=== PATIENT | male | born 1960 | race Caucasian/White ===

== ENCOUNTER 2017-07-27 18:35 | Emergency (ER) | payer MEDICAID ==
[~2017-07-27] VITALS: Ht 162.6 cm; Wt 74.8 kg
--- NOTE | 2017-07-27 18:40 | NUR ---
[id number] FROM THE [facility]IAL[facility]IS [facility] FOR HIGH BP AFTER DIALYSIS 219/106. PT DENIES ANY COMPLAINTS. NAD NOTED. PT AAO X4, RR EVEN AND UNLABORED. TRACH NOTED IN PLACED. PENDING MD PATHAK. PT PLACED ON MONITOR.
[2017-07-27] MEDS ORDERED: hydrALAZINE HCL IV 20 MG VIAL IV ONE (19:00)
[2017-07-27] MEDS ORDERED: hydrALAZINE HCL IV 20 MG VIAL ONE (19:01)
--- NOTE | 2017-07-27 19:12 | NUR ---
MEDICATIONS GIVEN ORDERED.
[2017-07-27 19:15] LABS: BASOPHILS % (AUTO) 0.9 % (0.0-2.0); EOSINOPHILS % (AUTO) 5.6 % (0.0-6.0); HEMATOCRIT 34 % (39-51); HEMOGLOBIN 11.5 g/dL (13.5-17.5); LYMPHOCYTES # (AUTO) 1.3 /CMM (0.8-4.8); LYMPHOCYTES % (AUTO) 33.2 % (20.0-44.0); MEAN CORPUSCULAR HGB CONC 34 g/dl (31.0-36.0); MEAN CORPUSCULAR VOLUME 85 fL (80-96); MONOCYTES # (AUTO) 0.6 /CMM (0.1-1.30); NEUTROPHILS % (AUTO) 44.3 % (43.0-81.0); RDW COEFFICIENT OF VARIATION 16.7 (11.5-15.0); RED BLOOD CELL COUNT(AUTO) 3.99 MIL/uL (4.5-6.0); WHITE BLOOD COUNT (AUTO) 4.1 K/uL (4.3-11.0)
[2017-07-27 19:25] LABS: PLATELET COUNT (AUTO) 37 /CMM (150-450)
[2017-07-27 19:46] LABS: CALCIUM, SERUM 8.7 mg/dL (8.5-10.1); CREATININE 4.8 mg/dL (0.6-1.3); POTASSIUM 4.2 mmol/L (3.5-5.1)
[2017-07-27 21:15] LABS: EOSINOPHILS % (MANUAL) 9 % (0-4); LYMPHOCYTES % (MANUAL) 21 % (16-48); MONOCYTES % (MANUAL) 5 % (0-11.0); NEUTROPHILS % (MANUAL) 65 (42-76)
--- NOTE | 2017-07-27 21:21 | NUR ---
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 PATIENT IS ASYMPTOMATIC. MD BAUM AWARE OF BP. PATIENT'S NURSE BOOM VALIENTE AWARE OF BP.
[2017-07-27 21:24] VITALS: BP 160/118
--- NOTE | 2017-07-27 21:24 | NUR ---
PATIENT WAS PICKED UP BY GHISLAINE. VSS
== END 2017-07-27 21:28 | disposition home or self-care (01) ==
LOC: ER 18:38
DX: D61.818 Other pancytopenia (principal); I12.0 Hypertensive chronic kidney disease with stage 5 chronic kidney disease or end stage renal disease; N18.6 End stage renal disease; J44.9 Chronic obstructive pulmonary disease, unspecified; D64.9 Anemia, unspecified; Z85.118 Personal history of other malignant neoplasm of bronchus and lung; Z86.73 Personal history of transient ischemic attack (TIA), and cerebral infarction without residual deficits; Z93.0 Tracheostomy status; Z99.2 Dependence on renal dialysis
CPT/HCPCS: 36415; 80048; 85025; 96374; 99284; A4606; J0360; Z7610

== ENCOUNTER 2019-08-16 12:55 | Emergency (ER) | payer MEDICAID ==
[~2019-08-16] VITALS: Ht 172.7 cm; Wt 84.8 kg
[~2019-08-16 12:55] MED LIST: ACET-868 PO; AMIN30LI2 PO; ATOR10TA PO; CALC667C6 PO; CLON0.1T PO; FERR325T23 PO; FOLI0.8T23 PO; FURO-145 PO; HYDR-4075 PO; HYDR100T27 PO; LOPE2CAP PO; OXYB5TAB16 PO; PANT40TA2 PO; TAMS-12 PO; TEMA15CA PO; TRAM50TA2 PO
--- NOTE | 2019-08-16 13:25 | NUR ---
,, CONTACT INFO:[phone]
--- NOTE | 2019-08-16 13:48 | NUR ---
HIRAL FROM HD ACCROSS THE STREET. TO ER BED 7. AAOX4. NO RESP DISTRESS, BREATHING EVEN AND UNLABORED - PT HAVE TRACHESTOMY NOT VENT DEPENDENT. BROUGHT IN FOR REPORTED FEVER OF 101.6 AT THE [facility]. UPON TIAGE, PT'S TEMP WAS 98.3 AND 98.4 DURING ASSESSMENT. PT DENIES OF ANY MEDICAL COMPLAINT. MD WAS AT BEDSIDE. ORDERS RECEIVED, NOTED AND CARRIED OUT. IV LINE OBTIANED ON RFA 18G, BLOOD DRAWN, SWABBED FOR COVID AND FLU AND GIVEN TO DIRECTOR OF SPORTS PERFORMANCE. URINE TO FOLLOW, PT IS UNABLE TO URINTED AT THIS TIME, MD AWARE. VSS. WILL CONTINUE TO MONITOR PT.
[2019-08-16 14:16] LABS: BASOPHILS # (AUTO) 0.1 /CMM (0.0-0.2); BASOPHILS % (AUTO) 1.7 % (0.0-2.0); EOSINOPHILS % (AUTO) 4.4 % (0.0-6.0); HEMATOCRIT 34 % (39-51); HEMOGLOBIN 11.7 g/dL (13.5-17.5); LYMPHOCYTES # (AUTO) 1.3 /CMM (0.8-4.8); LYMPHOCYTES % (AUTO) 35.2 % (20.0-44.0); MEAN CORPUSCULAR HGB CONC 34 g/dl (31.0-36.0); MEAN CORPUSCULAR VOLUME 93 fL (80-96); MONOCYTES # (AUTO) 0.5 /CMM (0.1-1.30); MONOCYTES % (AUTO) 13.4 % (2.0-12.0); NEUTROPHILS # (AUTO) 1.7 /CMM (1.8-8.9); NEUTROPHILS % (AUTO) 45.3 % (43.0-81.0); PLATELET COUNT (AUTO) 94 /CMM (150-450); RED BLOOD CELL COUNT(AUTO) 3.69 MIL/uL (4.5-6.0); WHITE BLOOD COUNT (AUTO) 3.8 K/uL (4.3-11.0)
[2019-08-16 14:23] LABS: POTASSIUM 4.1 mmol/L (3.5-5.1)
[2019-08-16 14:32] LABS: CALCIUM, SERUM 8.7 mg/dL (8.5-10.1)
[2019-08-16 14:33] LABS: CREATININE 9.9 mg/dL (0.6-1.3)
[2019-08-16 14:36] LABS: ALBUMIN 3.6 g/dL (3.4-5.0); BILIRUBIN,TOTAL 0.8 mg/dL (0.2-1.0); TOTAL PROTEIN, SERUM 7.3 g/dL (6.4-8.2)
--- NOTE | 2019-08-16 14:40 | NUR ---
MD DOES NOT NEED URINE.
[2019-08-16 14:46] LABS: C-REACTIVE PROTEIN 0.7 mg/dL (0.0-0.9)
[2019-08-16 14:54] VITALS: BP 122/72
--- NOTE | 2019-08-16 15:25 | NUR ---
IV removed. Catheter intact and site benign. Pressure and 4x4 applied to site. No bleeding noted. Patient discharged to home in stable condition. Written and verbal after care instructions given. Patient verbalizes understanding of instruction.
[2019-08-16 16:24] LABS: BAND % (MANUAL) 1 % (0.0-5.0); EOSINOPHILS % (MANUAL) 5 % (0-4); LYMPHOCYTES % (MANUAL) 40 % (16-48); MONOCYTES % (MANUAL) 12 % (0-11.0); NEUTROPHILS % (MANUAL) 42 (42-76)
== END 2019-08-16 15:26 | disposition home or self-care (01) ==
LOC: ER 12:58
DX: T80.89XA Other complications following infusion, transfusion and therapeutic injection, initial encounter (principal); R50.9 Fever, unspecified; Z93.0 Tracheostomy status; R79.89 Other specified abnormal findings of blood chemistry; I12.0 Hypertensive chronic kidney disease with stage 5 chronic kidney disease or end stage renal disease; N18.6 End stage renal disease; Z99.2 Dependence on renal dialysis; Z85.118 Personal history of other malignant neoplasm of bronchus and lung; J44.9 Chronic obstructive pulmonary disease, unspecified; Z79.899 Other long term (current) drug therapy
CPT/HCPCS: 36415; 71045-TC; 80053-TC; 82550-TC; 82728-TC; 83605-TC; 83615-TC; 84484-TC; 85025-TC; 85730-TC; 86140-TC; 87040-TC

== ENCOUNTER 2020-07-12 12:13 | Inpatient (IN) | payer MEDICAID ==
[~2020-07-12] VITALS: Ht 165.1 cm; Wt 84.8 kg
--- NOTE | 2020-07-12 12:44 | NUR ---
elli from [facility]. aaox1. not in resp distress, trach dependent on ra and tolerating well. transferred from [facility] to bed w/ min assist. brought in for altered mental status. Per ambulance staff pt missed her dialysis d/t being altered. pt was reported to unable to ask the basic questions that he was used to be asked. upon assessing, pt appears withdrawn. noted hd cath on r u chest. hd on m,w,f. pt noted hypertensive. md was at the bedside for eval. orders received, noted and carried out. iv line established on r hand 2og, blood drawn and given to phleb.
[2020-07-12 12:51] LABS: BASOPHILS % (AUTO) 0.7 % (0.0-2.0); EOSINOPHILS % (AUTO) 4.1 % (0.0-6.0); HEMATOCRIT 42 % (39-51); LYMPHOCYTES % (AUTO) 21.6 % (20.0-44.0); MEAN CORPUSCULAR HGB CONC 33 g/dl (31.0-36.0); MEAN CORPUSCULAR VOLUME 91 fL (80-96); MONOCYTES # (AUTO) 0.4 /CMM (0.1-1.30); MONOCYTES % (AUTO) 8.4 % (2.0-12.0); NEUTROPHILS # (AUTO) 3.2 /CMM (1.8-8.9); NEUTROPHILS % (AUTO) 65.2 % (43.0-81.0); PLATELET COUNT (AUTO) 92 /CMM (150-450); RED BLOOD CELL COUNT(AUTO) 4.65 MIL/uL (4.5-6.0); WHITE BLOOD COUNT (AUTO) 4.8 K/uL (4.3-11.0)
[2020-07-12 13:21] LABS: CALCIUM, SERUM 8.9 mg/dL (8.5-10.1); POTASSIUM 4.3 mmol/L (3.5-5.1)
[2020-07-12 13:29] LABS: THYROID STIMULATING HORMONE 2.479 uIU/mL (0.358-3.74)
[2020-07-12] MEDS ORDERED: LACTULOSE 10 G/15 ML UDC (PYXIS) GT ONE (13:30)
[2020-07-12 13:31] LABS: ALBUMIN 3.6 g/dL (3.4-5.0); BILIRUBIN,DIRECT 0.2 mg/dL (0.0-0.2); BILIRUBIN,TOTAL 0.6 mg/dL (0.2-1.0); TOTAL PROTEIN, SERUM 8.3 g/dL (6.4-8.2)
[2020-07-12 13:35] LABS: CREATININE 9.4 mg/dL (0.6-1.3)
--- NOTE | 2020-07-12 13:38 | NUR ---
PANEL PAGED. AWAITING CALL BACK FROM DR HERNANDEZ.
[2020-07-12 13:49] LABS: EOSINOPHILS % (MANUAL) 4 % (0-4); LYMPHOCYTES % (MANUAL) 22 % (16-48); MONOCYTES % (MANUAL) 6 % (0-11.0); NEUTROPHILS % (MANUAL) 68 (42-76)
[2020-07-12] MEDS ORDERED: LEVE500T20 PO (13:49)
[2020-07-12] MEDS ORDERED: LISI40TA13 PO (13:49)
[2020-07-12] MEDS ORDERED: GABA-536 PO (13:49)
[2020-07-12] MEDS ORDERED: FOLI0.8C PO (13:49)
[2020-07-12] MEDS ORDERED: CARV6.252 PO (13:49)
[2020-07-12] MEDS ORDERED: IPRA3AMP23 IH (13:49)
[2020-07-12] MEDS ORDERED: AMLO-213 PO (13:49)
--- NOTE | 2020-07-12 14:04 | NUR ---
CALLED [facility].
--- NOTE | 2020-07-12 14:47 | NUR ---
SHARON BRADY GAVE TELE BED 120-2.
[2020-07-12] MEDS ORDERED: LACTULOSE 10 G/15 ML UDC (PYXIS) ONE (15:09)
[2020-07-12] MEDS ORDERED: Z GUARD REMEDY 2 OZ OINT TP PRN (15:30)
[2020-07-12] MEDS ORDERED: MAGNESIUM HYDROXIDE 30 ML UDC PO PRN (15:30)
[2020-07-12] MEDS ORDERED: ACETAMINOPHEN 325 MG TABLET PO PRN (15:30)
[2020-07-12] MEDS ORDERED: HYDROCODONE/APAP 5/325MG TABLET PO PRN (15:30)
[2020-07-12] MEDS ORDERED: ONDANSETRON HCL/PF 4 MG/2 ML VIAL IVP PRN (15:30)
[2020-07-12] MEDS ORDERED: MAG HYDROX/AL HYDROX/SIMETH 30 ML UDC PO PRN (15:30)
--- NOTE | 2020-07-12 16:23 | NUR ---
REPORT GIVEN TO RADHA EUGENE. PT AWAITING TRANSFER TO FLOOR.
[2020-07-12] MEDS: OXYBUTYNIN CHLORIDE 5 MG TABLET PO SCH (17:00)
[2020-07-12] MEDS: CARVEDILOL 6.25 MG TABLET PO SCH (17:00)
[2020-07-12] MEDS: GABAPENTIN 400 MG CAPSULE PO SCH (17:00)
--- NOTE | 2020-07-12 17:00 | NUR ---
PT TRANSPORTED TO UNIT ON GURNEY WITH EMT AND RN AT BEDSIDE W/ ACLS PROTOCOL. NAD NOTED DURING TRANSPORT.
--- NOTE | 2020-07-12 17:30 | NUR ---
RN NOTES RECEIVED PT FROM ER. PT CONFUSED. SAFETY MEASURES IN PLACE. PT WILL START DIALYSIS. WILL CONTINUE TO MONITOR
[2020-07-12] MEDS: CALCIUM ACETATE 667 MG TABLET PO SCH (18:00)
[2020-07-12] MEDS: LACTULOSE 10 G/15 ML UDC (PYXIS) PO SCH (18:00)
--- NOTE | 2020-07-12 19:00 | NUR ---
RN NOTE RECEIVED PATIENT IN BED, ONGOING DIALYSIS STOPPED FOR NOW PATIENT IS AGITATED, AND TRIED PULLING OUT LINES, PATIENT ABLE TO REMOVE B SOFT WRIST RESTRAINTS, R WRIST PERIPHERAL LINE PULLED OUT, HD RN AT BEDSIDE. PATIENT IS CYMRAES SPEAKING, SHANIKA LOMELI ABLE TO HELP WITH TRANSLATION AND WAS ABLE TO HELP CALM PATIENT. NO SOB NOTED. PATIENT'S BREATHING IS EVEN AND UNLABORED. PATIENT ON T-PIECE TO ROOM AIR, SATURATION AT 97%. PATIENT REFUSED TELE MONITOR/ELECTRODES. NOTED HD CATH AT RIGHT CHEST WALL, NO SIGN OF INFECTION NOTED. PATIENT IS CONTINENT, WITH URINAL AT BEDSIDE, NOTED CLEAR YELLOW OUTPUT, MINIMAL AMOUNT NOTED. SAFETY MEASURES IMPLEMENTED. PATIENT BED ALARM IS ON. HEAD OF BED ELEVATED. BED IS LOCKED, IN LOWEST POSITION AND SIDE RAILS UP. CALL LIGHT WITHIN REACH OF THE PATIENT. WILL CONTINUE TO MONITOR AND REASSESS FOR ANY CHANGES.
--- NOTE | 2020-07-12 19:15 | NUR ---
RN NOTE DR HERNANDEZ IN UNIT, NOTED MISC ORDER: IF NOT TOLERATED PO PLEASE INSERT NG TUBE AND GIVE MEDICATION. DR HERNANDEZ ALSO NOTED PER PATIENT'S , NOT TO USE PMV/SPEAKING VALVE THIS WILL SUFFOCATE PATIENT, AND THAT PATIENT GETS VIOLENT WHEN ON RESTRAINTS.
--- NOTE | 2020-07-12 19:34 | NUR ---
RN NOTES STILL ON HD. VS STABLE. CONFUSED. WILL ENDORSE TO NIGHT NURSE FOR ERICA
[2020-07-12 20:00] VITALS: BP 157/87
--- NOTE | 2020-07-12 21:00 | NUR ---
RN NOTE TELEPHONE CALL TO PATIENT'S , JULY, VERIFIED PATIENT'S CODE STATUS, AND OBTAINED CONSENT FOR HD. JULY STATED PATIENT IS FULL CODE, AND CONSENT FOR HD WAS DISCUSSED EARLIER WITH , PROVIDED HER VERBAL CONSENT. CONVERSATION WITNESSED BY CAROLINE VERNON RN.
--- NOTE | 2020-07-12 21:09 | NUR ---
RT NOTE CALLED TO ASSESS PT FOR TRACHEAL BLEEDING, CHANGED INNER CANNULA D/T OLD I.C HAD DRY OLD BLOOD. BACK UP TRACH AND EXTRA INNER CANNULA AT BEDSIDE. WILL CONTINUE TO MONITOR T/O SHIFT. NO S/S OF SOBOR RESPIRATORY DISTRESS NOTED.
--- NOTE | 2020-07-12 21:30 | NUR ---
CREATIVE WRITING PROFESSOR RN REINSERTED IV LINE AT PATIENT'S R WRIST 22G. ASEPTIC TECHNIQUE WAS OBSERVED. ATTEMPTED TO INSERT NGTUBE 14G, PATIENT REFUSED. DR DAVID WAS NOTIFIED. ACKNOWLEDGED WITH NO NEW ORDERS RECEIVED.
[2020-07-12] MEDS: FERROUS SULFATE (325 MG) 325 MG/TAB TABLET PO SCH (22:54)
[2020-07-12] MEDS: ATORVASTATIN 10 MG TABLET PO SCH (22:55)
[2020-07-12] MEDS: TAMSULOSIN 0.4 MG CAP.SR.24H PO SCH (22:55)
[2020-07-12] MEDS: LEVETIRACETAM (250 MG) 250 MG TABLET PO SCH (22:55)
[2020-07-13] VITALS: BP 169/97
[2020-07-13] MEDS: LACTULOSE 10 G/15 ML UDC (PYXIS) PO SCH ×4 (00:01→17:05)
--- NOTE | 2020-07-13 00:30 | NUR ---
RN NOTE NOTED BP 169/103 AT REST, AT 0000. REPOSITIONED PATIENT, KEPT COMFORTABLE. RECHECKED BP AT 0030, RESULTED 175/104. DR DAVID WAS NOTIFIED, RECEIVED ORDERS FOR HYDRALAZINE 10 MG IVP Q8H PRN FOR SBP >160. RHYTHMIC GYMNASTICS COACH AWARE.
[2020-07-13] MEDS: hydrALAZINE HCL IV 20 MG VIAL IV PRN (01:40)
[2020-07-13 04:00] VITALS: BP 128/75
[2020-07-13] MEDS: PANTOPRAZOLE 40 MG TABLET.DR PO SCH (06:58)
[2020-07-13 07:08] LABS: BASOPHILS # (AUTO) 0.1 /CMM (0.0-0.2); BASOPHILS % (AUTO) 1.9 % (0.0-2.0); EOSINOPHILS % (AUTO) 4.9 % (0.0-6.0); HEMATOCRIT 41 % (39-51); HEMOGLOBIN 13.5 g/dL (13.5-17.5); LYMPHOCYTES # (AUTO) 1.3 /CMM (0.8-4.8); MEAN CORPUSCULAR HGB CONC 33 g/dl (31.0-36.0); MEAN CORPUSCULAR VOLUME 91 fL (80-96); MONOCYTES # (AUTO) 0.6 /CMM (0.1-1.30); MONOCYTES % (AUTO) 13.1 % (2.0-12.0); NEUTROPHILS # (AUTO) 2.2 /CMM (1.8-8.9); NEUTROPHILS % (AUTO) 50.1 % (43.0-81.0); PLATELET COUNT (AUTO) 105 /CMM (150-450); RED BLOOD CELL COUNT(AUTO) 4.51 MIL/uL (4.5-6.0); WHITE BLOOD COUNT (AUTO) 4.5 K/uL (4.3-11.0)
[2020-07-13] MEDS ORDERED: PANTOPRAZOLE 40 MG TABLET.DR PO SCH (07:30)
[2020-07-13 07:38] LABS: CALCIUM, SERUM 9.4 mg/dL (8.5-10.1); MAGNESIUM 2.4 mg/dL (1.8-2.4); POTASSIUM 3.9 mmol/L (3.5-5.1)
[2020-07-13 07:46] LABS: CREATININE 8.9 mg/dL (0.6-1.3)
--- NOTE | 2020-07-13 07:48 | NUR ---
RT Pt awake and alert on room air with adequate SpO2. Pt refused suctioning at this time. No SOB or respiratory distress noted. Addendum: 07/13/20 at 0843 by BILLY MEJIA RT Amended: Links added.
[2020-07-13 07:56] LABS: THYROID STIMULATING HORMONE 4.365 uIU/mL (0.358-3.74)
[2020-07-13 08:00] VITALS: BP 155/93
[2020-07-13] MEDS: LEVETIRACETAM (250 MG) 250 MG TABLET PO SCH ×2 (08:20→21:37)
[2020-07-13] MEDS: CALCIUM ACETATE 667 MG TABLET PO SCH ×3 (08:20→17:05)
[2020-07-13] MEDS: FERROUS SULFATE (325 MG) 325 MG/TAB TABLET PO SCH ×2 (08:20→21:37)
[2020-07-13] MEDS: FOLIC ACID 1 MG TABLET PO SCH (08:20)
[2020-07-13] MEDS: AMLODIPINE BESYLATE 10 MG TABLET PO SCH (08:21)
[2020-07-13] MEDS: CARVEDILOL 6.25 MG TABLET PO SCH ×2 (08:21→17:05)
[2020-07-13] MEDS: OXYBUTYNIN CHLORIDE 5 MG TABLET PO SCH ×3 (08:21→17:05)
[2020-07-13] MEDS: LISINOPRIL (10MG) 10 MG TABLET PO SCH (08:22)
[2020-07-13] MEDS: GABAPENTIN 400 MG CAPSULE PO SCH ×3 (08:22→17:05)
--- NOTE | 2020-07-13 09:30 | NUR ---
MD FAJARDO MADE AWARE OF CRITICAL BUN/CR 59/8.4, AND PATIENTS IMPROVING AMMONIA 58 FROM 233. MD NOTIFIED OF PATIENT ALERT AND ORIENTED X 4, PASSING BEDSIDE SWALLOW EVAL. ORDERS RECEIVED TO RESUME PREVIOUS DIET
--- NOTE | 2020-07-13 11:49 | NUR ---
PATIENT RECEIVED IN BED ALERT AND ORIENTED X4. PATIENT BREATHING PATIENT IS ABLE TO AMBULATE INDEPENDENTLY. PATIENT ON MONITOR SHOWING SR 60-70s. PATIENT HAS RHAND 22G IV INTACT, AND RIGHT CHEST WALL HD CATH. PT HAS SIERRA AV SHUNT UNUSED AND MALFUNCTIONED. ALL SAFETY MEASURES IN PLACE. WILL CONTINUE TO MONITOR Addendum: 07/13/20 at 1912 by RAMY GRIFFIN RN NOTE TO BE ENTERED FOR 0800, NOT 1149
[2020-07-13 12:00] VITALS: BP 132/84
[2020-07-13] MEDS ORDERED: FOLIC ACID 1 MG TABLET PO SCH (15:00)
[2020-07-13 16:00] VITALS: BP 128/79
--- NOTE | 2020-07-13 19:12 | NUR ---
PATIENT REMAINS AMBULATORY WITHIN ROOM, NO ACUTE CHANGE IN SHIFT. PATIENT IS STRICT I/O, BUT REFUSES TO USE URINALS. PATIENT IS INDEPENDENT TO THE BATHROOM, WITH 4 WATERY BM THIS SHIFT; PATIENT ON LACTULOSE. ALL SAFETY MEASURES IN PLACE. ALL NEEDS ENDORSED TO ONCOMING RN.
[2020-07-13 20:00] VITALS: BP 133/80
[2020-07-13] MEDS: ATORVASTATIN 10 MG TABLET PO SCH (21:36)
[2020-07-13] MEDS: TAMSULOSIN 0.4 MG CAP.SR.24H PO SCH (21:37)
[2020-07-14] VITALS: BP 167/94
[2020-07-14] MEDS: LACTULOSE 10 G/15 ML UDC (PYXIS) PO SCH ×5 (00:25→23:47)
[2020-07-14 04:00] VITALS: BP 164/79
[2020-07-14] MEDS: hydrALAZINE HCL IV 20 MG VIAL IV PRN (04:18)
[2020-07-14 06:45] LABS: BASOPHILS # (AUTO) 0.1 /CMM (0.0-0.2); BASOPHILS % (AUTO) 1.6 % (0.0-2.0); EOSINOPHILS % (AUTO) 5.2 % (0.0-6.0); HEMATOCRIT 39 % (39-51); LYMPHOCYTES # (AUTO) 0.9 /CMM (0.8-4.8); MEAN CORPUSCULAR HGB CONC 33 g/dl (31.0-36.0); MEAN CORPUSCULAR VOLUME 92 fL (80-96); MONOCYTES # (AUTO) 0.7 /CMM (0.1-1.30); MONOCYTES % (AUTO) 12.8 % (2.0-12.0); NEUTROPHILS # (AUTO) 3.5 /CMM (1.8-8.9); NEUTROPHILS % (AUTO) 63.4 % (43.0-81.0); PLATELET COUNT (AUTO) 95 /CMM (150-450); RED BLOOD CELL COUNT(AUTO) 4.25 MIL/uL (4.5-6.0); WHITE BLOOD COUNT (AUTO) 5.5 K/uL (4.3-11.0)
[2020-07-14 07:12] LABS: CALCIUM, SERUM 8.8 mg/dL (8.5-10.1); POTASSIUM 4.7 mmol/L (3.5-5.1)
[2020-07-14 07:16] LABS: CREATININE 10.8 mg/dL (0.6-1.3)
--- NOTE | 2020-07-14 07:30 | NUR ---
RN OPENING NOTE PATIENT RECEIVED IN BED ALERT AND ORIENTED X4. TRACHEOSTOMY STATUS ON ROOM AIR, TOELRATING WELL. NO COMPLAINTS OF SOB OR DISTRESS NOTED. BREATHING PATIENT IS ABLE TO AMBULATE INDEPENDENTLY. PATIENT HAS R HAND 22G IV INTACT, AND RIGHT CHEST WALL HD CATH. PT HAS SIERRA AV SHUNT UNUSED AND MALFUNCTIONED. SAFETY PRECAUTIONS IMPLEMENTED, SIDE RAILS UP X2, BED LOCKED IN LOWEST POSITION, CALL LIGHT WITHIN REACH. ALL WILL CONTINUE TO MONITOR AND PROIVDE CLIENT CARE THROUGHOUT SHIFT.
[2020-07-14 08:00] VITALS: BP 166/98
[2020-07-14] MEDS: CARVEDILOL 6.25 MG TABLET PO SCH ×3 (09:00→16:57)
[2020-07-14] MEDS ORDERED: IOHEXOL-350 100 ML VIAL IV ONE (09:45)
[2020-07-14] MEDS ORDERED: IV NS 0.9% 250 ML IV ONE (09:46)
[2020-07-14] MEDS ORDERED: CT SWABBABLE VALVE TRANS SET 1 EA INFUS.SET MC ONE (09:46)
[2020-07-14] MEDS: PANTOPRAZOLE 40 MG TABLET.DR PO SCH (10:31)
[2020-07-14] MEDS: CALCIUM ACETATE 667 MG TABLET PO SCH ×3 (10:33→17:02)
[2020-07-14] MEDS: OXYBUTYNIN CHLORIDE 5 MG TABLET PO SCH ×3 (10:34→16:57)
[2020-07-14] MEDS: GABAPENTIN 400 MG CAPSULE PO SCH ×3 (10:35→16:57)
[2020-07-14] MEDS: FOLIC ACID 1 MG TABLET PO SCH (10:35)
[2020-07-14] MEDS: LEVETIRACETAM (250 MG) 250 MG TABLET PO SCH ×2 (10:35→20:56)
[2020-07-14] MEDS: FERROUS SULFATE (325 MG) 325 MG/TAB TABLET PO SCH ×2 (10:35→20:56)
[2020-07-14] MEDS: LISINOPRIL (10MG) 10 MG TABLET PO SCH (10:36)
[2020-07-14] MEDS: AMLODIPINE BESYLATE 10 MG TABLET PO SCH (10:36)
[2020-07-14 12:00] VITALS: BP_SYST 153; BP_SYST 155; BP_DIAS 94
[2020-07-14 16:00] VITALS: BP 114/66
--- NOTE | 2020-07-14 18:28 | NUR ---
Pt. was not compliant, Inner cannula change, Cool aerosol was on the bed side due to bleeding on the trach site also continous pulse ox was on the bedside. Pt. was alert and oriented x 4. German speaker SpO2 was 98%
--- NOTE | 2020-07-14 19:38 | NUR ---
RN CLOSING NOTE PATIENT IN BED ALERT AND ORIENTED X4. TRACHEOSTOMY STATUS ON ROOM AIR, TOLERATING WELL. NO COMPLAINTS OF SOB OR DISTRESS NOTED. BREATHING PATIENT IS ABLE TO AMBULATE INDEPENDENTLY. PATIENT HAS R HAND 22G IV INTACT, AND RIGHT CHEST WALL HD CATH. PT HAS SIERRA AV SHUNT UNUSED AND MALFUNCTIONED. SAFETY PRECAUTIONS IMPLEMENTED, SIDE RAILS UP X2, BED LOCKED IN LOWEST POSITION, CALL LIGHT WITHIN REACH. WILL ENDORSE CARE TO UPCOMING SHIFT.
[2020-07-14 20:00] VITALS: BP 119/66
--- NOTE | 2020-07-14 20:20 | NUR ---
RT pt found on RA, adequate spo2. no resp distress or sob. pt refusing suction. spare trach at bedside. ambu bag at [facility]. will continue to monitor
--- NOTE | 2020-07-14 20:20 | NUR ---
RN NOTES, HD DONE AT THIS TIME, PATIENT A/O X4 ABLE TO VERBALIZE NEEDS AND CONCERNS, HD NURSES STATED HE GAVE A BOLUS NS DUE TO BP 80S EARLIER, BP AT THIS TIME 116/66, 1L FLUID REMOVED, NO DISTRESS NOTED, PATIENT EATING AT THIS TIME, WILL CONTINUE TO MONITOR CLOSELY.
[2020-07-14] MEDS: ATORVASTATIN 10 MG TABLET PO SCH (21:00)
[2020-07-14] MEDS: TAMSULOSIN 0.4 MG CAP.SR.24H PO SCH (21:00)
--- NOTE | 2020-07-14 23:51 | NUR ---
RT pt placed on aerosol. spo2 100%. huseyin vaughn, aware
[2020-07-15 04:00] VITALS: BP 138/78
[2020-07-15] MEDS: LACTULOSE 10 G/15 ML UDC (PYXIS) PO SCH ×3 (05:15→17:58)
--- NOTE | 2020-07-15 06:41 | NUR ---
RN CLOSING NOTE, PATIENT IN BED ALERT AND ORIENTED X4, ASLEEP AT THIS TIME, AROUSES TO VERBAL STIMULI, TRACHEOSTOMY IN PLACED, WITH COOL AEROSOL DURING THE NIGHT, TOLERATED WELL, NO SOB/ ACUTE DISTRESS NOTED, RIGHT HAND 22G IV INTACT, AND RIGHT CHEST WALL HD CATH, SIERRA AV SHUNT MALFUNCTIONED, HD LAST NIGHT WITH 1L OF FLUID REMOVED, SAFETY PRECAUTIONS IMPLEMENTED, SIDE RAILS UP X2, BED LOCKED IN LOWEST POSITION, CALL LIGHT WITHIN REACH, WILL ENDORSE CONTINUITY OF CARE TO ONCOMING NURSE.
[2020-07-15 06:50] LABS: CALCIUM, SERUM 8.6 mg/dL (8.5-10.1); POTASSIUM 4.6 mmol/L (3.5-5.1)
[2020-07-15 07:01] LABS: CREATININE 9.8 mg/dL (0.6-1.3)
--- NOTE | 2020-07-15 07:30 | NUR ---
RN OPENING NOTES PATIENT PRESENT IN ROOM, A?OX4, ON ROOM AIR, SPO2 IS 100%, NO SOB, DENIES PAIN OR DISCOMFORT, AMBULATORY, iV LINE INTACT, FLUSHED, HD CATH INTACT, SAFETY MEASURES IN PLACE, WILL CONT TO MONITOR
[2020-07-15] MEDS: CALCIUM ACETATE 667 MG TABLET PO SCH ×3 (07:56→17:58)
[2020-07-15] MEDS: PANTOPRAZOLE 40 MG TABLET.DR PO SCH (07:56)
[2020-07-15 08:00] VITALS: BP 141/90
[2020-07-15 08:06] LABS: IMMUNOGLOBULIN A, SERUM 454 mg/dL (90-386); IMMUNOGLOBULIN G, SERUM 1555 mg/dL (603-1613); IMMUNOGLOBULIN M, SERUM 117 mg/dL (20-172)
[2020-07-15] MEDS: LISINOPRIL (10MG) 10 MG TABLET PO SCH (08:56)
[2020-07-15] MEDS: LEVETIRACETAM (250 MG) 250 MG TABLET PO SCH ×2 (08:56→21:03)
[2020-07-15] MEDS: FOLIC ACID 1 MG TABLET PO SCH (08:56)
[2020-07-15] MEDS: GABAPENTIN 400 MG CAPSULE PO SCH ×3 (08:57→18:00)
[2020-07-15] MEDS: FERROUS SULFATE (325 MG) 325 MG/TAB TABLET PO SCH ×2 (08:57→21:03)
[2020-07-15] MEDS: OXYBUTYNIN CHLORIDE 5 MG TABLET PO SCH ×3 (08:57→17:59)
[2020-07-15] MEDS: CARVEDILOL 6.25 MG TABLET PO SCH ×2 (08:58→17:59)
[2020-07-15] MEDS: AMLODIPINE BESYLATE 10 MG TABLET PO SCH (08:58)
--- NOTE | 2020-07-15 11:48 | NUR ---
MRI APPROVED,TO BE DONE TOMORROW AM BEFORE THE DIALYSIS,PER NURSE DREA, DEPUTY SHERIFF SAMMIE HAS BEING NOTIFIED.
[2020-07-15 12:00] VITALS: BP 141/90
[2020-07-15 16:00] VITALS: BP 110/74
--- NOTE | 2020-07-15 16:28 | NUR ---
SS Note: Per pt.'s request, SW met with pt. bedside. Pt. is alert & oriented. Patient requested that I speak with his girlfriend, July [phone]. SW called & spoke to July who requested Advanced Healthcare Directive paperwork. SW will follow up tomorrow and ask pt. if that is what he wants and provide education about paperwork and what it entails.SW will follow up as needed.
--- NOTE | 2020-07-15 19:10 | NUR ---
RN CLOSING NOTE REMAINS IN ROOM, SITTING IN CHAIR, COMFORTABLY, MEDS GIVEN, EDUCATION PROVIDED, NO ACUTE CHANGES DUE SHIFT WILL ENDORSE TO PM SHIFT FOR ERICA
[2020-07-15 20:00] VITALS: BP 126/80
--- NOTE | 2020-07-15 20:00 | NUR ---
RN CLOSING NOTE, PATIENT IN BED ALERT AND ORIENTED X4, AWAKE, TOLERATED WELL, NO SOB/ ACUTE DISTRESS NOTED, NO CHANGE LOC, NO S/S OF CONFUSION NOTED, SAFETY PRECAUTIONS IMPLEMENTED, SIDE RAILS UP X2, BED LOCKED IN LOWEST POSITION, CALL LIGHT WITHIN REACH, WILL CONTINUE TO MONITOR CLOSELY.
[2020-07-15] MEDS: TAMSULOSIN 0.4 MG CAP.SR.24H PO SCH (21:03)
[2020-07-15] MEDS: ATORVASTATIN 10 MG TABLET PO SCH (21:03)
[2020-07-16] MEDS: LACTULOSE 10 G/15 ML UDC (PYXIS) PO SCH ×5 (00:24→23:23)
[2020-07-16 02:06] LABS: AFP, TUMOR MARKER 21.7 ng/mL (0.0-8.3); CARBOHYDRATE AG 19-9 47 U/mL (0-35)
[2020-07-16 04:00] VITALS: BP 96/50
[2020-07-16 06:29] LABS: BASOPHILS # (AUTO) 0.1 /CMM (0.0-0.2); BASOPHILS % (AUTO) 1.5 % (0.0-2.0); EOSINOPHILS % (AUTO) 7.8 % (0.0-6.0); HEMATOCRIT 33 % (39-51); HEMOGLOBIN 11.1 g/dL (13.5-17.5); LYMPHOCYTES # (AUTO) 1.3 /CMM (0.8-4.8); MEAN CORPUSCULAR HGB CONC 34 g/dl (31.0-36.0); MEAN CORPUSCULAR VOLUME 91 fL (80-96); MONOCYTES # (AUTO) 0.6 /CMM (0.1-1.30); MONOCYTES % (AUTO) 16.2 % (2.0-12.0); NEUTROPHILS # (AUTO) 1.6 /CMM (1.8-8.9); NEUTROPHILS % (AUTO) 41.5 % (43.0-81.0); PLATELET COUNT (AUTO) 83 /CMM (150-450); RED BLOOD CELL COUNT(AUTO) 3.62 MIL/uL (4.5-6.0); WHITE BLOOD COUNT (AUTO) 3.9 K/uL (4.3-11.0)
[2020-07-16 06:48] LABS: CALCIUM, SERUM 8.4 mg/dL (8.5-10.1)
[2020-07-16 07:11] LABS: CREATININE 11.4 mg/dL (0.6-1.3)
--- NOTE | 2020-07-16 07:20 | NUR ---
RN CLOSING NOTE, PATIENT IN BED , AWAKE A/O X4, TRACH IN PLACED,NO O2 IN USE, TOLERATED WELL AT RA, BREATHING EVEN AND UNLABORED, NO SOB NOTED/ACUTE DISTRESS, NO SIGNIFICANT CHANGE IN CONDITION DURING THE NIGHT, WILL HAVE MRI SOON AND WILL HAVE HD AFTER THAT, NPO SINCE MIDNIGHT, WILL ENDORSE CONTINUITY OF CARE TO ONCOMING NURSE.
--- NOTE | 2020-07-16 08:00 | NUR ---
MS RN NOTE PATIENT IN BED ALERT AND ORIENTED X4, AWAKE, TOLERATED WELL, NO SOB/ ACUTE DISTRESS NOTED, SAFETY PRECAUTIONS IMPLEMENTED, SIDE RAILS UP X2, BED LOCKED IN LOWEST POSITION, CALL LIGHT WITHIN REACH, WILL CONTINUE TO MONITOR CLOSELY.NPO FOR NOW BUR PER EAP SPECIALIST OK TO GIVE MEDICATION, RT AC HL INATCT AND FLUSHED WELL TAKEN TO MRI
[2020-07-16 08:07] LABS: *SPE A/G RATIO 0.9 (0.7-1.7); *SPE ALBUMIN 3.4 g/dL (2.9-4.4); *SPE ALPHA-1-GLOBULIN 0.2 g/dL (0.0-0.4); *SPE ALPHA-2-GLOBULIN 0.8 g/dL (0.4-1.0); *SPE BETA GLOBULIN 1.1 g/dL (0.7-1.3); *SPE GLOBULIN, TOTAL 3.6 g/dL (2.2-3.9); *SPE M-SPIKE Not Observed g/dL (Not Observed); *SPEGAMMA GLOBULIN 1.5 g/dL (0.4-1.8)
--- NOTE | 2020-07-16 08:09 | NUR ---
RT NOTE PT RECEIVED ON ROOM AIR. SHILEY [address] AND SECURED. PT REFUSING COOL AEROSOL AT THIS TIME. NO DISTRESS NOTED. WILL MONITOR.
[2020-07-16] MEDS: OXYBUTYNIN CHLORIDE 5 MG TABLET PO SCH ×3 (08:37→16:37)
[2020-07-16] MEDS: GABAPENTIN 400 MG CAPSULE PO SCH ×3 (08:37→16:31)
[2020-07-16] MEDS: FERROUS SULFATE (325 MG) 325 MG/TAB TABLET PO SCH ×2 (08:37→20:50)
[2020-07-16] MEDS: LEVETIRACETAM (250 MG) 250 MG TABLET PO SCH ×2 (08:37→20:50)
[2020-07-16] MEDS: FOLIC ACID 1 MG TABLET PO SCH (08:37)
[2020-07-16] MEDS: CARVEDILOL 6.25 MG TABLET PO SCH ×2 (08:38→16:29)
[2020-07-16] MEDS: LISINOPRIL (10MG) 10 MG TABLET PO SCH (08:38)
[2020-07-16] MEDS: AMLODIPINE BESYLATE 10 MG TABLET PO SCH (08:39)
[2020-07-16] MEDS: PANTOPRAZOLE 40 MG TABLET.DR PO SCH (08:45)
[2020-07-16 10:02] LABS: EOSINOPHILS % (MANUAL) 7 % (0-4); LYMPHOCYTES % (MANUAL) 33 % (16-48); MONOCYTES % (MANUAL) 17 % (0-11.0); NEUTROPHILS % (MANUAL) 43 (42-76)
--- NOTE | 2020-07-16 10:05 | NUR ---
SS Note: Per girlfriend, , EMORY called [employer] [phone] spoke to Valery to assist this patient with applying for Medicare. Valery was agreeable and stated she will follow up. EMORY printed Ivorian & Pashto Advanced Healthcare Directive and provided it to pt. EMORY educated pt. regarding this paperwork. Pt. stated he has had 3 episodes of confusion recently and feels it is necessary to complete and advanced healthcare directive in the event that he cannot make decisions for self. Noted. EMORY July stated they already have a public notary and declined this resource. EMORY also provided pt. with the senior resources and pt. was receptive. SW will be available as needed. Pt. stated he resides at [facility]. [[address] [place] [address] ] and receives HD at [facility] [phone]. Noted.
--- NOTE | 2020-07-16 10:06 | NUR ---
MS RN NOTE BACK FROM MRI ,ORDERED FOOD WILL F\U
[2020-07-16] MEDS: CALCIUM ACETATE 667 MG TABLET PO SCH ×3 (10:19→17:40)
--- NOTE | 2020-07-16 10:29 | NUR ---
MS RN NOTE CALLED TO MELVIN MANAGER PROGRAMMING NOTIFIED THAT FIBRINOGEN 900 PLATELETS 20 , WITH ORDER IF PLATELETS LESS THEN 10 TRANSFUSE 1 UNIT PLATELETS
--- NOTE | 2020-07-16 13:49 | NUR ---
ms rn note hd nurse will be here about 1530, patient notified
--- NOTE | 2020-07-16 15:23 | NUR ---
CLINICAL STAFF ANESTHESIOLOGIST NOTE HD STARTED ORDERED
--- NOTE | 2020-07-16 15:42 | NUR ---
MS RN NOTE CONSENT FOR CT NEEDLE BIOPSY OBTAINED, PATIENT SIGNED
--- NOTE | 2020-07-16 16:37 | NUR ---
MS RN NOTE HOLD BP MEDS PATIENT ON HD AT THIS TIME
--- NOTE | 2020-07-16 17:45 | NUR ---
MS RN NOTE HD COMPETED, 600 ML OF FLUIDS REMOVED, BP HR 59
--- NOTE | 2020-07-16 18:44 | NUR ---
MS RN NOTE PATIENT IN BED, RESTING COMFORTABLE WITH TRACH TO ON RA , NO SOB NOTED , RT AC HL INTACT RT CW HD IN PLACED, BED IN LOWEST AND LOCKED POSITION , CALL LIGHT WITHIN , WILL CONT TO MONITOR, NOT IN DISTRESS, WILL CONT TO MONITOR
[2020-07-16 20:00] VITALS: BP 144/86
[2020-07-16] MEDS ORDERED: GADOTERATE MEGLUMINE 10 MMOL/20 ML VIAL IV ONE (20:53)
[2020-07-16] MEDS: TAMSULOSIN 0.4 MG CAP.SR.24H PO SCH (21:01)
[2020-07-16] MEDS: ATORVASTATIN 10 MG TABLET PO SCH (21:02)
--- NOTE | 2020-07-17 02:20 | NUR ---
RN NOTES, ENDORSED PATIENT TO MELODY EUGENE FOR CONTINUATION OF CARE, PT IN STABLE CONDITION, NPO SINCE MIDNIGHT FOR LIVER BIOPSY IN AM.
--- NOTE | 2020-07-17 02:30 | NUR ---
PUTTY MIXER NOTE: RECEIVED REPORT FROM LOC, PATIENT RESTING IN BED, NO ACUTE DISTRESS NOTED. BREATHING EVEN AND UNLABORED, TRACH IN PLACE. AV SHUNT TO SIERRA IN PLACE, RCW WITH HD CATH IN PLACE. IV TO RAC AND RIGHT HAND. PATIENT NPO FOR LIVER BIOPSY. BED LOCKED AND IN LOWEST POSITION, CALL LIGHT IN REACH, WILL CONTINUE TO MONITOR THROUGHOUT SHIFT.
[2020-07-17 04:45] VITALS: BP 96/44
[2020-07-17] MEDS: LACTULOSE 10 G/15 ML UDC (PYXIS) PO SCH ×4 (05:33→23:58)
[2020-07-17 06:04] LABS: BASOPHILS # (AUTO) 0.1 /CMM (0.0-0.2); BASOPHILS % (AUTO) 1.4 % (0.0-2.0); EOSINOPHILS % (AUTO) 5.7 % (0.0-6.0); HEMATOCRIT 31 % (39-51); HEMOGLOBIN 10.2 g/dL (13.5-17.5); LYMPHOCYTES # (AUTO) 1.3 /CMM (0.8-4.8); LYMPHOCYTES % (AUTO) 36.4 % (20.0-44.0); MEAN CORPUSCULAR HGB CONC 34 g/dl (31.0-36.0); MEAN CORPUSCULAR VOLUME 90 fL (80-96); MONOCYTES # (AUTO) 0.5 /CMM (0.1-1.30); MONOCYTES % (AUTO) 14.5 % (2.0-12.0); NEUTROPHILS # (AUTO) 1.5 /CMM (1.8-8.9); PLATELET COUNT (AUTO) 68 /CMM (150-450); RED BLOOD CELL COUNT(AUTO) 3.39 MIL/uL (4.5-6.0); WHITE BLOOD COUNT (AUTO) 3.6 K/uL (4.3-11.0)
[2020-07-17 06:31] LABS: SERUM AMMONIA 121 umol/L (11-32)
--- NOTE | 2020-07-17 06:50 | NUR ---
MS RN NOTE: PATIENT RESTING IN BED, NO ACUTE DISTRESS NOTED. BREATHING EVEN AND UNLABORED, TRACH IN PLACE. AV SHUNT TO SIERRA IN PLACE, RCW WITH HD CATH IN PLACE. IV TO RAC AND RIGHT HAND. PATIENT NPO FOR LIVER BIOPSY, CONSENT SIGNED AND IN CHART. BED LOCKED AND IN LOWEST POSITION, CALL LIGHT IN REACH, WILL ENDORSE TO DAY NURSE TO CONTINUE WITH PLAN OF CARE.
[2020-07-17 06:51] LABS: CALCIUM, SERUM 7.4 mg/dL (8.5-10.1); MAGNESIUM 2.2 mg/dL (1.8-2.4); PHOSPHORUS 4.9 mg/dL (2.5-4.9); POTASSIUM 3.6 mmol/L (3.5-5.1)
[2020-07-17 07:01] LABS: CREATININE 9.3 mg/dL (0.6-1.3)
[2020-07-17 07:26] LABS: FERRITIN 1527 ng/mL (8-388)
[2020-07-17 08:00] VITALS: BP 130/70
[2020-07-17 08:25] LABS: IRON, SERUM 156 ug/dl (50-175); TOTAL IRON BINDING CAPACITY 147 ug/dl (250-450)
--- NOTE | 2020-07-17 10:12 | NUR ---
PER DR CARLTON, PT BIOPSY TO BE DONE 07/18/20 AT 1300, PATHOLOGY AND RN JILLIAN NOTIFIED, PT TO BE NPO X6 HRS PRIOR TO EXAM.
--- NOTE | 2020-07-17 10:39 | NUR ---
PATIENT COMPLAINING ABOUT FOOD RESTRICTIONS DR. GÓMEZ CHRISTENSEN AT BEDSIDE AND GAVE ORDER TO CHANGE IT TO REGULAR DIET.
[2020-07-17] MEDS: FERROUS SULFATE (325 MG) 325 MG/TAB TABLET PO SCH ×2 (11:28→21:23)
[2020-07-17] MEDS: FOLIC ACID 1 MG TABLET PO SCH (11:28)
[2020-07-17] MEDS: CALCIUM ACETATE 667 MG TABLET PO SCH ×3 (11:28→17:26)
[2020-07-17] MEDS: OXYBUTYNIN CHLORIDE 5 MG TABLET PO SCH ×3 (11:28→17:25)
[2020-07-17] MEDS: AMLODIPINE BESYLATE 10 MG TABLET PO SCH (11:29)
[2020-07-17] MEDS: PANTOPRAZOLE 40 MG TABLET.DR PO SCH (11:29)
[2020-07-17] MEDS: LEVETIRACETAM (250 MG) 250 MG TABLET PO SCH ×2 (11:29→21:23)
[2020-07-17] MEDS: CARVEDILOL 6.25 MG TABLET PO SCH ×2 (11:29→17:26)
--- NOTE | 2020-07-17 11:30 | NUR ---
Received call from radiology department Brian regarding patient's Liver biposy being cancelled due to unavailability of radiologist.
[2020-07-17] MEDS: LISINOPRIL (10MG) 10 MG TABLET PO SCH (11:33)
[2020-07-17 12:00] VITALS: BP 126/79
[2020-07-17] MEDS: GABAPENTIN 300 MG CAPSULE PO SCH ×2 (14:00→17:25)
--- NOTE | 2020-07-17 14:31 | NUR ---
Per radiology ( Brian) patient will have biopsy of the liver at 1300 on 07/18/20 and to be NPO at 6am.
[2020-07-17 16:00] VITALS: BP 106/61
--- NOTE | 2020-07-17 19:27 | NUR ---
MED SURG CLOSING NOTES Patient is alert and oriented x3. Patient did not c/o sob or any respiratory distress. Trach ( shiley) in place. AV shunt to SIRERA in place. RCW with HD in place. IV to right ac patent and no s/s of infiltration. Patient teaching done regarding safety and fall precaution. Patient did not have any bm during shift. Endorsed to on coming nurse regarding patient's need to be NPO at 6 am on 07/18/20 for Liver biopsy to be done at 1300. Patient is aware. Endorsed to next nurse for ERICA. PATIENT RESTING IN BED, NO ACUTE DISTRESS NOTED. BREATHING EVEN AND UNLABORED, TRACH IN PLACE. AV SHUNT TO SIERRA IN PLACE, RCW WITH HD CATH IN PLACE. IV TO RAC AND RIGHT HAND. PATIENT NPO FOR LIVER BIOPSY, CONSENT SIGNED AND IN CHART. BED LOCKED AND IN LOWEST POSITION, CALL LIGHT IN REACH, WILL ENDORSE TO DAY NURSE TO CONTINUE WITH PLAN OF CARE.
--- NOTE | 2020-07-17 19:30 | NUR ---
MED SURG CLOSING NOTES Patient is alert and oriented x3. Patient did not c/o sob or any respiratory distress. Trach ( gabyley) in place. AV shunt to SIERRA in place. RCW with HD in place. IV to right ac patent and no s/s of infiltration. Patient teaching done regarding safety and fall precaution. Patient did not have any bm during shift. Endorsed to on coming nurse regarding patient's need to be NPO at 6 am on 07/18/20 for Liver biopsy to be done at 1300. Patient is aware. Endorsed to next nurse for ERICA.
[2020-07-17 20:00] VITALS: BP 119/75
[2020-07-17] MEDS: TAMSULOSIN 0.4 MG CAP.SR.24H PO SCH (21:23)
[2020-07-17] MEDS: ATORVASTATIN 10 MG TABLET PO SCH (21:23)
[2020-07-18] MEDS: LACTULOSE 10 G/15 ML UDC (PYXIS) PO SCH ×3 (05:55→18:16)
--- NOTE | 2020-07-18 06:00 | NUR ---
MS-1/BUSINESS RELATIONSHIP MANAGER SPOKE TO PT ABOUT HIS NPO STATUS STARTING NOW. PT VERBALIZED UNDERSTANDING.
[2020-07-18 06:36] LABS: BASOPHILS % (AUTO) 1.3 % (0.0-2.0); EOSINOPHILS % (AUTO) 6.1 % (0.0-6.0); HEMATOCRIT 30 % (39-51); HEMOGLOBIN 10.1 g/dL (13.5-17.5); LYMPHOCYTES # (AUTO) 1.2 /CMM (0.8-4.8); MEAN CORPUSCULAR HGB CONC 34 g/dl (31.0-36.0); MEAN CORPUSCULAR VOLUME 90 fL (80-96); MONOCYTES # (AUTO) 0.6 /CMM (0.1-1.30); MONOCYTES % (AUTO) 16.4 % (2.0-12.0); NEUTROPHILS # (AUTO) 1.5 /CMM (1.8-8.9); NEUTROPHILS % (AUTO) 42.2 % (43.0-81.0); PLATELET COUNT (AUTO) 73 /CMM (150-450); RED BLOOD CELL COUNT(AUTO) 3.32 MIL/uL (4.5-6.0); WHITE BLOOD COUNT (AUTO) 3.7 K/uL (4.3-11.0)
[2020-07-18 06:46] LABS: CALCIUM, SERUM 7.3 mg/dL (8.5-10.1); MAGNESIUM 2.2 mg/dL (1.8-2.4); PHOSPHORUS 4.7 mg/dL (2.5-4.9); POTASSIUM 4.4 mmol/L (3.5-5.1)
[2020-07-18 06:53] LABS: CREATININE 10.5 mg/dL (0.6-1.3)
--- NOTE | 2020-07-18 07:00 | NUR ---
RN NOTE PATIENT IS A/O X4, ON RA HAS UNLABORED BREATHING WITH NO SIGNS OF DISTRESS, TRACK SHILEY 8 INTACT. IV R AC SL, R CW HD CATH INTACT AND L UA AV SHUNT. CURRENTLY NPO. SAFETY MEASURES IN PLACE, CALL LIGHT WITHIN REACH, WILL CONTNIUE TO MONITOR.
[2020-07-18] MEDS: PANTOPRAZOLE 40 MG TABLET.DR PO SCH (07:30)
[2020-07-18 08:00] VITALS: BP 122/65
[2020-07-18] MEDS: CALCIUM ACETATE 667 MG TABLET PO SCH ×3 (08:00→18:16)
[2020-07-18] MEDS: FOLIC ACID 1 MG TABLET PO SCH (09:00)
[2020-07-18] MEDS: AMLODIPINE BESYLATE 10 MG TABLET PO SCH (09:00)
[2020-07-18] MEDS: LISINOPRIL (10MG) 10 MG TABLET PO SCH (09:00)
[2020-07-18] MEDS: OXYBUTYNIN CHLORIDE 5 MG TABLET PO SCH ×3 (09:00→18:17)
[2020-07-18] MEDS: FERROUS SULFATE (325 MG) 325 MG/TAB TABLET PO SCH ×2 (09:00→21:36)
[2020-07-18] MEDS: GABAPENTIN 300 MG CAPSULE PO SCH ×3 (09:00→18:17)
[2020-07-18] MEDS: CARVEDILOL 6.25 MG TABLET PO SCH ×2 (09:00→17:00)
[2020-07-18 10:07] LABS: *ANA ANTI-CENTROMERE B AB <0.2 AI (0.0-0.9); *ANA ANTI-DNA(DS) AB, QN 1 IU/mL (0-9); *ANA ANTI-JO-1 <0.2 AI (0.0-0.9); *ANA ANTICHROMATIN ANTIBODY <0.2 AI (0.0-0.9); *ANA RNP ANTIBODIES <0.2 AI (0.0-0.9); *ANA SJOGREN'S ANTI-SS-A <0.2 AI (0.0-0.9); *ANA SJOGREN'S ANTI-SS-B <0.2 AI (0.0-0.9); *ANAANTI-SCLERODERMA-70 AB 0.3 AI (0.0-0.9); *ANASMITH AB <0.2 AI (0.0-0.9)
[2020-07-18] MEDS ORDERED: LACT10SO58 PO (12:55)
--- NOTE | 2020-07-18 13:00 | NUR ---
left with x-ray tech via wheelchair for CT of liver biopsy.
[2020-07-18] MEDS ORDERED: NALOXONE PREFILLED SYRINGE 2 MG/2 ML SYRINGE IV ONE (14:00)
[2020-07-18] MEDS ORDERED: MIDAZOLAM HCL 5MG/ML VIAL 25 MG/5 ML VIAL IV ONE (14:00)
[2020-07-18] MEDS ORDERED: FENTANYL PF 250MCG/5ML AMPUL IV ONE (14:00)
[2020-07-18] MEDS: LEVETIRACETAM (250 MG) 250 MG TABLET PO SCH ×2 (14:38→21:36)
[2020-07-18 16:00] VITALS: BP 121/101
--- NOTE | 2020-07-18 18:18 | NUR ---
HELD BP MED, WILL BE GETTING DIALYSIS TODAY.
--- NOTE | 2020-07-18 19:00 | NUR ---
RN NOTE PATIENT IS A/O X4, ON RA HAS UNLABORED BREATHING WITH NO SIGNS OF DISTRESS, TRACK SHILEY 8 INTACT. IV R AC SL, R CW HD CATH INTACT AND L UA AV SHUNT. CURRENTLY ON DIALYSIS. ALL TREATMENTS WERE GIVING ANTICIPATED, WILL ENDORSE TO THE NEXT HEAD AUTOMATIC SAWYER.
--- NOTE | 2020-07-18 19:00 | NUR ---
CALLED [facility] SPOKE WITH ANN TO GIVE REPORT FOR THE PATIENT FOR ERICA. PATIENT WILL BE GETTING PICKED UP AT 9PM AFTER DIALYSIS.
--- NOTE | 2020-07-18 19:28 | NUR ---
EDUCATED PATIENT ON DISCHARGE INSTRUCTIONS. DISCHARGE PAPER SIGNED AND COMPLETE, BELONGING LIST COMPLETED AND SIGNED.
--- NOTE | 2020-07-18 19:53 | NUR ---
MANDI/RN RECEIVED PATIENT LYING ON BED AWAKE, ALERT, ORIENTED, COMFORTABLE, NO DISTRESS NOTED, TRACH IN PLACE, ABLE TO COMMUNICATE, HD WAS FINISHED, 1 LITER WAS OUT, PATIENT IS FOR DISCHARGE TONIGHT, WAITING FOR THE AMBULANCE.
[2020-07-18] MEDS: ATORVASTATIN 10 MG TABLET PO SCH (21:36)
[2020-07-18] MEDS: TAMSULOSIN 0.4 MG CAP.SR.24H PO SCH (21:43)
--- NOTE | 2020-07-18 21:43 | NUR ---
MANDI/RN DUE MEDS GIVEN CRUSHED WITH PUDDING. PATIENT TOLERATED. FLOMAX NOT GIVEN, PATIENT CAN TAKE CRUSH MEDS ONLY AND FLOMAX IS EXTENDED RELEASE AND CAN NOT BE CRUSHED.
--- NOTE | 2020-07-18 22:23 | NUR ---
MANDI/RN AMBULANCE HERE TO MEDIA BUYER THE PATIENT, REPORT WAS GIVEN TO THE EMT, IV WAS REMOVED, BELONGINGS GIVEN BACK TO THE PATIENT. AMBULANCE LEFT THE UNIT AT THIS TIME, PATIENT WAS IN STABLE CONDITION.
== END 2020-07-18 22:23 | DRG 279 ==
LOC: ER 12:15 → TELE1 14:50 → TELE-TD 07-13 18:58 → TELE1 07-13 19:54 → MEDSG1 07-14 12:23
PROVIDERS: ATTEND Student in an Organized Health Care Education/Training Program
PROC: 5A1D70Z Performance of Urinary Filtration, Intermittent, Less than 6 Hours Per Day (ICD-10-PCS; principal; 2020-07-12)
PROC: BF45ZZZ Ultrasonography of Liver (ICD-10-PCS; 2020-07-12)
DX: K72.00 Acute and subacute hepatic failure without coma (principal); J96.10 Chronic respiratory failure, unspecified whether with hypoxia or hypercapnia; I12.0 Hypertensive chronic kidney disease with stage 5 chronic kidney disease or end stage renal disease; Z99.2 Dependence on renal dialysis; Z93.0 Tracheostomy status; N18.6 End stage renal disease; K70.30 Alcoholic cirrhosis of liver without ascites; D69.6 Thrombocytopenia, unspecified; Z86.73 Personal history of transient ischemic attack (TIA), and cerebral infarction without residual deficits; K76.89 Other specified diseases of liver; Z20.822 Contact with and (suspected) exposure to COVID-19; R16.1 Splenomegaly, not elsewhere classified; F10.21 Alcohol dependence, in remission; D63.8 Anemia in other chronic diseases classified elsewhere; D69.59 Other secondary thrombocytopenia; D72.819 Decreased white blood cell count, unspecified; J38.6 Stenosis of larynx
CPT/HCPCS: 31720; 36415; 70450-TC; 71045-TC; 71270-TC; 74178; 74183-TC; 76705-TC; 76942-TC; 77012-TC; 80048-TC; 80061-TC; 80076-TC; 82105; 82140-TC; 82378; 82728-TC; 82784; 83540-TC; 83605-TC; 83735-TC; 84100-TC; 84155; 84165; 84443-TC; 84484-TC; 85025-TC; 85610-TC; 85730-TC; 86225; 86235; 86301; 86334; 86431-TC; 86706; 86803; 87040-TC; 87081-TC; 87340; 90935-TC; 92526; 92611-TC; 94664-TC; 94760-TC; 94761-TC; 94799-TC; A4217; A4623; A6403; A7526; A9575; G0378; J0360; J2250; J2310; J3010; J7050; Q9967; U0003

== ENCOUNTER 2020-11-11 11:43 | Inpatient (IN) | payer MEDICAID ==
[~2020-11-11] VITALS: Ht 165.1 cm; Wt 76.2 kg
[~2020-11-11 11:43] MED LIST changes: -ACET-868 PO; -AMIN30LI2 PO; +AMLO-213 PO; +CARV6.252 PO; -CLON0.1T PO; +FOLI0.8C PO; -FOLI0.8T23 PO; -FURO-145 PO; +GABA-536 PO; -HYDR-4075 PO; -HYDR100T27 PO; +IPRA3AMP23 IH; +LACT10SO58 PO; +LEVE500T20 PO; +LISI40TA13 PO; -LOPE2CAP PO
--- NOTE | 2020-11-11 11:59 | NUR ---
60 years old male on HD wednesday, Wednesday presents to er c/o abdominal pain time 1 month denies nausea vomiting diarrhea, constipation. vital stable.
[2020-11-11] MEDS ORDERED: ONDANSETRON HCL/PF 4 MG/2 ML VIAL IVP ONE (12:00)
[2020-11-11] MEDS ORDERED: MORPHINE SULFATE INJ 2 MG/ML DISP.SYRIN IV ONE (12:00)
[2020-11-11] MEDS ORDERED: MORPHINE SULFATE INJ 2 MG/ML DISP.SYRIN ONE (12:03)
[2020-11-11] MEDS ORDERED: ONDANSETRON HCL/PF 4 MG/2 ML VIAL ONE (12:03)
[2020-11-11 12:30] LABS: BASOPHILS # (AUTO) 0.1 K/uL (0.0-0.2); BASOPHILS % (AUTO) 0.8 % (0.0-2.0); EOSINOPHILS % (AUTO) 1.4 % (0.0-6.0); HEMATOCRIT 28 % (39-51); HEMOGLOBIN 9.2 g/dL (13.5-17.5); LYMPHOCYTES # (AUTO) 0.9 K/uL (0.8-4.8); LYMPHOCYTES % (AUTO) 8.8 % (20.0-44.0); MEAN CORPUSCULAR HGB CONC 33 g/dl (31.0-36.0); MEAN CORPUSCULAR VOLUME 85 fL (80-96); MONOCYTES # (AUTO) 0.8 K/uL (0.1-1.30); MONOCYTES % (AUTO) 7.8 % (2.0-12.0); NEUTROPHILS # (AUTO) 7.9 K/uL (1.8-8.9); NEUTROPHILS % (AUTO) 81.2 % (43.0-81.0); PLATELET COUNT (AUTO) 180 K/uL (150-450); RED BLOOD CELL COUNT(AUTO) 3.31 MIL/uL (4.5-6.0); WHITE BLOOD COUNT (AUTO) 9.7 K/uL (4.3-11.0)
[2020-11-11] MEDS ORDERED: HYDR-3972 PO (12:31)
[2020-11-11] MEDS ORDERED: ACET-868 PO (12:31)
[2020-11-11] MEDS ORDERED: VITA1TAB56 PO (12:31)
[2020-11-11] MEDS ORDERED: NUT.237L67 PO (12:31)
[2020-11-11] MEDS ORDERED: BISA5TAB10 PO (12:31)
[2020-11-11] MEDS ORDERED: LACT10SO3 PO (12:31)
[2020-11-11] MEDS ORDERED: HYDR-500 PO (12:31)
[2020-11-11] MEDS ORDERED: IPRA3AMP23 IH (12:31)
[2020-11-11] MEDS ORDERED: HYDR100T27 PO (12:31)
[2020-11-11] MEDS ORDERED: CLON0.1T PO (12:31)
[2020-11-11] MEDS ORDERED: ONDA4TAB5 PO (12:31)
[2020-11-11] MEDS ORDERED: LORA-259 PO (12:31)
[2020-11-11] MEDS ORDERED: AMIN30LI27 PO (12:31)
[2020-11-11] MEDS ORDERED: POLY17PO4 PO (12:31)
[2020-11-11] MEDS ORDERED: DIPH25CA51 PO (12:31)
[2020-11-11 12:43] LABS: CALCIUM, SERUM 8.7 mg/dL (8.5-10.1); CARBON DIOXIDE 21 mmol/L (21-32); CHLORIDE 97 mmol/L (98-107); GLUCOSE 115 mg/dL (74-106); POTASSIUM 4.8 mmol/L (3.5-5.1); SODIUM SERUM 131 mmol/L (136-145); UREA NITROGEN, BLOOD 48 mg/dL (7-18)
[2020-11-11 12:45] LABS: CREATININE 9.2 mg/dL (0.6-1.3)
[2020-11-11 12:51] LABS: ALANINE AMINOTRANSFERASE 49 U/L (12-78); ALBUMIN 1.9 g/dL (3.4-5.0); ALKALINE PHOSPHATASE 325 U/L (46-116); ASPARTATE AMINOTRANSFERASE 120 U/L (15-37); BILIRUBIN,TOTAL 6.8 mg/dL (0.2-1.0); LIPASE 50 U/L (73-393); TOTAL PROTEIN, SERUM 6.6 g/dL (6.4-8.2)
--- NOTE | 2020-11-11 13:29 | NUR ---
CALLED DR. CHRISTENSEN LEFT [facility] TO CALL US BACK.
--- NOTE | 2020-11-11 13:43 | NUR ---
DR. CHRISTENSEN ASKED FOR PT TO GO TO [facility]
--- NOTE | 2020-11-11 13:44 | NUR ---
[facility] CALLED MANAGER MEDICAL WRITING PAGED.
[2020-11-11] MEDS ORDERED: LABETALOL 20 MG/4 ML VIAL IV PRN (14:00)
[2020-11-11] MEDS ORDERED: MAGNESIUM HYDROXIDE 30 ML UDC PO PRN (14:00)
[2020-11-11] MEDS ORDERED: Z GUARD REMEDY 2 OZ OINT TP PRN (14:00)
--- NOTE | 2020-11-11 14:00 | NUR ---
MOVE SHEET SUBMITTED AND CALLED FOR BED.
--- NOTE | 2020-11-11 14:02 | NUR ---
GI CALLED DR. ANDREA SPEAKING WITH DR. CHEEK.
[2020-11-11] MEDS ORDERED: ENOXAPARIN SODIUM 40 MG/0.4 ML DISP.SYRIN SQ ONE (14:06)
[2020-11-11] MEDS ORDERED: PIPERACILLIN /TAZOBACTAM 3.375 G VIAL IV ONE (14:06)
--- NOTE | 2020-11-11 14:09 | NUR ---
CALLED SURGERY DR. WU SPEAKING WITH DR. CHEEK
[2020-11-11] MEDS ORDERED: ENOXAPARIN SODIUM 30 MG/0.3 ML DISP.SYRIN SQ SCH (14:30)
[2020-11-11] MEDS ORDERED: PIPERACILLIN /TAZOBACTAM 3.375 G in IV D5W 50 ML IV ONE (14:30)
--- NOTE | 2020-11-11 16:30 | NUR ---
no breakthrough pain vital stable awaiting for admit bed.
--- NOTE | 2020-11-11 18:28 | NUR ---
patient reassess awake no acute changes, denies pain.
[2020-11-11] MEDS ORDERED: CLONIDINE HCL 0.1 MG TABLET PO PRN (18:30)
[2020-11-11] MEDS ORDERED: ALBUMIN 25% 25 GM in PREMIX 1 EA IV SCH (18:30)
[2020-11-11] MEDS ORDERED: POLYETHYLENE GLYCOL 3350 17 GM POWD.PACK PO PRN (18:30)
[2020-11-11] MEDS ORDERED: LORAZEPAM 1 MG TABLET PO PRN (18:30)
[2020-11-11] MEDS ORDERED: ALBUTEROL FS 2.5 MG/0.5 ML VIAL.NEB NEB PRN (19:00)
[2020-11-11] MEDS ORDERED: ONDANSETRON 4 MG TAB.RAPDIS PO PRN (19:00)
--- NOTE | 2020-11-11 19:17 | NUR ---
report endorsed to incoming RN all questions answered.
[2020-11-11] MEDS ORDERED: ALBUTEROL FS 2.5 MG/0.5 ML VIAL.NEB NEB SCH (19:30)
[2020-11-11] MEDS ORDERED: IPRATROPIUM NEB FS 0.5 MG/2.5 ML AMPUL.NEB NEB PRN (19:30)
[2020-11-11] MEDS: IPRATROPIUM NEB FS 0.5 MG/2.5 ML AMPUL.NEB NEB SCH (19:30)
[2020-11-11] MEDS ORDERED: ALBUMIN 25% 100 ML IV ONE (19:58)
[2020-11-11] MEDS: PROSOURCE / PROSTAT (PYXIS) 30 ML UDC PO SCH (21:00)
[2020-11-11] MEDS ORDERED: IPRATROPIUM BROMIDE 14 GM INHALER (or 12.9 GM) IH PRN (21:30)
[2020-11-11] MEDS ORDERED: ALBUTEROL SULFATE 8 GM HFA.AER.AD IH PRN (21:30)
[2020-11-11] MEDS ORDERED: LEVETIRACETAM (250 MG) 250 MG TABLET PO ONE (22:13)
[2020-11-11] MEDS ORDERED: LACTULOSE 10 G/15 ML UDC (PYXIS) ONE (22:13)
[2020-11-11] MEDS ORDERED: TAMSULOSIN 0.4 MG CAP.SR.24H ONE (22:13)
[2020-11-11] MEDS ORDERED: ATORVASTATIN 10 MG TABLET ONE (22:13)
[2020-11-11] MEDS: TAMSULOSIN 0.4 MG CAP.SR.24H PO SCH (22:25)
[2020-11-11] MEDS: LEVETIRACETAM (250 MG) 250 MG TABLET PO SCH (22:25)
[2020-11-11] MEDS: LACTULOSE 10 G/15 ML UDC (PYXIS) PO SCH (22:25)
[2020-11-11] MEDS: ATORVASTATIN 10 MG TABLET PO SCH (22:26)
[2020-11-11 22:49] LABS: BILIRUBIN,URINE LARGE (NEGATIVE); COLOR,URINE AMBER (YELLOW); LEUKOCYTE ESTERASE ,URINE Negative (NEGATIVE); NITRITE, URINE Negative (NEGATIVE); PROTEIN,URINE >=300 mg/dl (NEGATIVE); UGLUCOSE Negative (NEGATIVE)
--- NOTE | 2020-11-11 23:39 | NUR ---
REPORT GIVENT TO
--- NOTE | 2020-11-12 01:15 | NUR ---
MS RN NOTES REPORT RECEIVED FROM ZARINA. RECEIVED PATIENT AT THIS TIME VIA STRETCHER. A/OX4. NO S/S OF APPARENT DISTRESS. NO C/O PAIN AT THIS TIME. PATIENT HAS TRACH COLLAR IN PLACE AND IN OXYGEN 6LPM. PATIENT IS JAUNDICED, SHOWING IN HIS EYES AND SKIN. STOMACH DISTENDED. R. SIDE ANA CATH IN PLACE. NO IV FLUIDS RUNNING AT THIS TIME. NEW ID BAND ON PATIENT. BELONGINGS CHECKED. SAFETY IN PLACE: BED IN LOWEST, LOCKED POSITION, CALL LIGHT WITHIN REACH. PATIENT HAS NO NEEDS AT THIS TIME. WILL CONTINUE TO MONITOR.
--- NOTE | 2020-11-12 01:19 | NUR ---
PT WAS TRANSFERRED TO [facility] IN STABLE CONDITION
[2020-11-12] MEDS: IPRATROPIUM BROMIDE 14 GM INHALER (or 12.9 GM) IH SCH ×4 (01:30→19:30)
[2020-11-12] MEDS: IPRATROPIUM NEB FS 0.5 MG/2.5 ML AMPUL.NEB NEB SCH ×4 (01:30→19:30)
[2020-11-12] MEDS: ALBUTEROL SULFATE 8 GM HFA.AER.AD IH SCH ×4 (01:30→19:30)
[2020-11-12 01:55] VITALS: BP 151/84
[2020-11-12 06:38] LABS: BASOPHILS # (AUTO) 0.1 K/uL (0.0-0.2); EOSINOPHILS % (AUTO) 1.1 % (0.0-6.0); HEMATOCRIT 29 % (39-51); HEMOGLOBIN 9.5 g/dL (13.5-17.5); LYMPHOCYTES # (AUTO) 2.8 K/uL (0.8-4.8); LYMPHOCYTES % (AUTO) 28.3 % (20.0-44.0); MEAN CORPUSCULAR HGB CONC 33 g/dl (31.0-36.0); MEAN CORPUSCULAR VOLUME 84 fL (80-96); MONOCYTES # (AUTO) 0.7 K/uL (0.1-1.30); MONOCYTES % (AUTO) 6.5 % (2.0-12.0); NEUTROPHILS # (AUTO) 6.3 K/uL (1.8-8.9); NEUTROPHILS % (AUTO) 63.1 % (43.0-81.0); PLATELET COUNT (AUTO) 204 K/uL (150-450); RED BLOOD CELL COUNT(AUTO) 3.38 MIL/uL (4.5-6.0)
[2020-11-12 06:41] LABS: ALBUMIN 2.1 g/dL (3.4-5.0); BILIRUBIN,TOTAL 6.7 mg/dL (0.2-1.0); CALCIUM, SERUM 9.1 mg/dL (8.5-10.1); MAGNESIUM 2.8 mg/dL (1.8-2.4); PHOSPHORUS 6.4 mg/dL (2.5-4.9); POTASSIUM 5.4 mmol/L (3.5-5.1); TOTAL PROTEIN, SERUM 6.8 g/dL (6.4-8.2)
[2020-11-12 06:49] LABS: CREATININE 10.4 mg/dL (0.6-1.3)
--- NOTE | 2020-11-12 06:51 | NUR ---
MS RN NOTES PATIENT SLEEPING COMFORTABLY. NO SIGNIFICANT CHANGE SINCE ADMISSION. SAFETY KEPT THE WHOLE SHIFT. WILL ENDORSE CARE TO MORNING SHIFT RN.
--- NOTE | 2020-11-12 07:49 | NUR ---
RT Pt received on Vapotherm 30L and 100% FiO2 with non rebreather at 15lpm with SpO2 greater than 94%. Pt requested to be taken off non rebreather and prefers to just be on Vapotherm. No SOB or respiratory distress noted at this time. Addendum: 11/12/20 at 1020 by BILLY MEJIA RT Amended: Links added. Addendum: 11/12/20 at 1021 by BILLY MEJIA RT RT ERROR ABOVE
--- NOTE | 2020-11-12 07:49 | NUR ---
RT Pt received awake and alert on trach collar with 5L O2 with adequate SpO2. Pt is awake and alert, no SOB or respiratory distress noted. MDI given with no adverse reactions. Addendum: 11/12/20 at 1023 by BILLY MEJIA RT Amended: Links added.
[2020-11-12] MEDS: FOLIC ACID 1 MG TABLET PO SCH (08:48)
[2020-11-12] MEDS: GABAPENTIN 300 MG CAPSULE PO SCH ×3 (08:49→16:54)
[2020-11-12] MEDS: FERROUS SULFATE (325 MG) 325 MG/TAB TABLET PO SCH (08:49)
[2020-11-12] MEDS: LACTULOSE 10 G/15 ML UDC (PYXIS) PO SCH ×4 (08:49→21:14)
[2020-11-12] MEDS: PANTOPRAZOLE 40 MG TABLET.DR PO SCH (08:49)
[2020-11-12] MEDS: VITAMIN B COMP W-C 1 TAB TABLET PO SCH (08:49)
[2020-11-12] MEDS: AMLODIPINE BESYLATE 10 MG TABLET PO SCH (08:49)
[2020-11-12] MEDS: OXYBUTYNIN CHLORIDE 5 MG TABLET PO SCH ×3 (08:49→16:53)
[2020-11-12] MEDS: LEVETIRACETAM (250 MG) 250 MG TABLET PO SCH ×2 (08:49→21:14)
[2020-11-12] MEDS: NEPRO VAN 237 ML CAN PO SCH (08:50)
[2020-11-12] MEDS: CALCIUM ACETATE 667 MG TABLET PO SCH ×2 (08:50→16:54)
[2020-11-12] MEDS: LISINOPRIL (20MG) 20 MG TABLET PO SCH (08:50)
[2020-11-12] MEDS: CARVEDILOL 6.25 MG TABLET PO SCH ×2 (08:50→16:54)
[2020-11-12] MEDS: PROSOURCE / PROSTAT (PYXIS) 30 ML UDC PO SCH ×2 (08:50→21:17)
[2020-11-12] MEDS: ENOXAPARIN SODIUM 30 MG/0.3 ML DISP.SYRIN SQ SCH (08:52)
--- NOTE | 2020-11-12 09:29 | NUR ---
Us GUIDED THORACENTESIS WILL BE DONE 11/13/20 IN THE AM. PATIENT WAS GIVEN LOVENOX AT 9AM ON 11/12/20 PER RADIOLOGIST MUST HOLD DOSE 12 HRS PRIOR TO PROCEDURE INFORMED VALORIE GONZALEZ
[2020-11-12 13:23] LABS: LYMPHOCYTES % (MANUAL) 13 % (16-48); MONOCYTES % (MANUAL) 8 % (0-11.0); NEUTROPHILS % (MANUAL) 79 (42-76)
--- NOTE | 2020-11-12 19:15 | NUR ---
RN OPENING NOTE RECD PT FROM VALORIE GONZALEZ. PT IS ON ISOLATION R/O PENDING PCR COVID RESULT. PT HAS TRACH COLLAR ON ROOM AIR, TOLERATING WELL. PT EATING AT THIS TIME. PT O2 SAT IS 95% NO SOB OR RESP DISTRESS NOTED. PT USUALLY ON 2L OF O2 AT REST. PT IS ON MED SURG MONITORING. PT HAS ABD PAIN, REQUESTS MEDICATION FOR CONSTIPATION. WILL FOLLOW UP. PT HAS IV LEFT HAND, FLUSHED ASEPTICALLY. NO S.S OF INFILTRATION NOTED. PT IS INDEPENDENT, AMBULATORY WITH STEADY GAIT. PT MOTIVATED TO SELF CARE. HYGIENE PRODUCTS PROVIDED. ALL NEEDS ATTENDED AT THIS TIME. SAFETY MEASURES IN PLACE. HOB ELEVATED. SIDE RAILS UP X2 BED LOCKED IN LOWEST POSITION, CALL LIGHT WITHIN REACH, WILL CONT TO MONITOR THROUGHOUT SHIFT.
[2020-11-12 20:00] VITALS: BP 95/54
--- NOTE | 2020-11-12 20:20 | NUR ---
RN NOTE PT COMPLAINS OF CONSTIPATION, REQUEST MEDICATION. ADMINISTERED MILK OF MAGNESIAN PRN ORDERED.
[2020-11-12] MEDS: ATORVASTATIN 10 MG TABLET PO SCH (21:14)
[2020-11-12] MEDS: TAMSULOSIN 0.4 MG CAP.SR.24H PO SCH (21:14)
--- NOTE | 2020-11-12 21:49 | NUR ---
RN NOTE PT JULY CALLED FOR UPDATE FOR , CALL FOR ANY ISSUES. [phone]
--- NOTE | 2020-11-12 22:34 | NUR ---
RN NOTE CONSENT SIGNED FOR US GUIDED THORACENTESIS, PLACED IN CHART. PT AWARE OF PROCEDURE TOMORROW
--- NOTE | 2020-11-13 01:00 | NUR ---
RN NOTE NOTIFIED WIRE DRAWING MACHINE TENDER INTERIOR DESIGN PROGRAM CHAIR RAEGAN ENCINAS FOR NO NEW ORDERS FOR THIS MORNING, ORDERS FOR AM LABS BMP CBC MAG AND PHOS CARRIED OUT.
[2020-11-13] MEDS: IPRATROPIUM NEB FS 0.5 MG/2.5 ML AMPUL.NEB NEB SCH ×4 (01:30→19:30)
[2020-11-13] MEDS: IPRATROPIUM BROMIDE 14 GM INHALER (or 12.9 GM) IH SCH ×4 (01:48→20:27)
[2020-11-13] MEDS: ALBUTEROL SULFATE 8 GM HFA.AER.AD IH SCH ×4 (01:48→20:26)
[2020-11-13 04:00] VITALS: BP 117/74
[2020-11-13 06:03] LABS: BASOPHILS # (AUTO) 0.1 K/uL (0.0-0.2); BASOPHILS % (AUTO) 0.8 % (0.0-2.0); EOSINOPHILS % (AUTO) 1.6 % (0.0-6.0); HEMATOCRIT 27 % (39-51); HEMOGLOBIN 8.9 g/dL (13.5-17.5); LYMPHOCYTES % (AUTO) 11.7 % (20.0-44.0); MEAN CORPUSCULAR HGB CONC 34 g/dl (31.0-36.0); MEAN CORPUSCULAR VOLUME 85 fL (80-96); MONOCYTES # (AUTO) 0.9 K/uL (0.1-1.30); NEUTROPHILS # (AUTO) 6.1 K/uL (1.8-8.9); NEUTROPHILS % (AUTO) 74.9 % (43.0-81.0); PLATELET COUNT (AUTO) 193 K/uL (150-450); RED BLOOD CELL COUNT(AUTO) 3.12 MIL/uL (4.5-6.0); WHITE BLOOD COUNT (AUTO) 8.1 K/uL (4.3-11.0)
[2020-11-13 06:36] LABS: CALCIUM, SERUM 8.4 mg/dL (8.5-10.1); MAGNESIUM 2.8 mg/dL (1.8-2.4); PHOSPHORUS 5.4 mg/dL (2.5-4.9); POTASSIUM 5.4 mmol/L (3.5-5.1)
[2020-11-13 06:42] LABS: ALBUMIN 1.8 g/dL (3.4-5.0); BILIRUBIN,DIRECT 4.2 mg/dL (0.0-0.2); TOTAL PROTEIN, SERUM 6.2 g/dL (6.4-8.2)
--- NOTE | 2020-11-13 06:55 | NUR ---
RN CLOSING NOTE NO SIGNIFICANT CHANGES IN PT CONDITION. PT IS ASLEEP RESTING AT THIS TIME. ON 2L TRACH COLLAR. ALL NEEDS ATTENDED AT THIS TIME. DENIES PAIN. PT HAD 2 XBM. ALL DUE MEDS GIVEN. SAFETY MEASURES IN PLACE. HOB ELEVATED. SIDE RAILS UP X2 BED LOCKED IN LOWEST POSITION, CALL LIGHT WITHIN REACH, WILL CONT ENDORSE TO AM SHIFT FOR CONTINUATION OF CARE.
[2020-11-13 06:56] LABS: CREATININE 8.4 mg/dL (0.6-1.3)
[2020-11-13 08:00] VITALS: BP 114/67
--- NOTE | 2020-11-13 08:00 | NUR ---
RN OPENING NOTE PT IS AWAKE IN BED RESTING. T PIECE PRESENT AND ON COOL AEROSOL. NO SOB OR RESPIRATORY DISTRESS PRESENT. O2 SAT >95%. A/O X4 AND SPEAKS WELSH AND [place]. 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 PRESENT. EDEMA PRESENT ON ABDOMEN. SELF AMBULATORY WITH STEADY GAIT AND BATHROOM PRIVILEGES. SKIN IS INTACT. IV PRESENT ON R WRIST 20G. HD CATH PRESENT ON R IJ. PAIN PRESENT AND PAIN MEDS GIVEN. LOVENOX HELD. LABS AND ORDERS REVIEWED. SAFETY MEASURES IN PLACE. SIDE RAILS RAISED. BED LOWERED. CALL LIGHT WITHIN REACH. WILL CONTINUE TO MONITOR.
[2020-11-13] MEDS: ENOXAPARIN SODIUM 30 MG/0.3 ML DISP.SYRIN SQ SCH (08:33)
[2020-11-13] MEDS: CARVEDILOL 6.25 MG TABLET PO SCH ×2 (08:38→17:00)
[2020-11-13] MEDS: FERROUS SULFATE (325 MG) 325 MG/TAB TABLET PO SCH (08:38)
[2020-11-13] MEDS: GABAPENTIN 300 MG CAPSULE PO SCH ×3 (08:38→16:46)
[2020-11-13] MEDS: CALCIUM ACETATE 667 MG TABLET PO SCH ×2 (08:38→16:46)
[2020-11-13] MEDS: VITAMIN B COMP W-C 1 TAB TABLET PO SCH (08:38)
[2020-11-13] MEDS: LEVETIRACETAM (250 MG) 250 MG TABLET PO SCH ×2 (08:38→21:37)
[2020-11-13] MEDS: FOLIC ACID 1 MG TABLET PO SCH (08:38)
[2020-11-13] MEDS: OXYBUTYNIN CHLORIDE 5 MG TABLET PO SCH ×3 (08:38→16:46)
[2020-11-13] MEDS: ACETAMINOPHEN 325 MG TABLET PO PRN (08:38)
[2020-11-13] MEDS: LACTULOSE 10 G/15 ML UDC (PYXIS) PO SCH ×4 (08:39→21:37)
[2020-11-13] MEDS: LISINOPRIL (20MG) 20 MG TABLET PO SCH (08:39)
[2020-11-13] MEDS: AMLODIPINE BESYLATE 10 MG TABLET PO SCH (08:39)
[2020-11-13] MEDS: PROSOURCE / PROSTAT (PYXIS) 30 ML UDC PO SCH ×2 (08:48→21:00)
[2020-11-13] MEDS: NEPRO VAN 237 ML CAN PO SCH (08:48)
[2020-11-13] MEDS: PANTOPRAZOLE 40 MG TABLET.DR PO SCH (08:48)
--- NOTE | 2020-11-13 09:05 | NUR ---
RN NOTE LOVENOX HELD DUE TO UPCOMING PROCEDURE. WILL CONTINUE TO MONITOR.
[2020-11-13] MEDS ORDERED: ALBUMIN 25% 25 GM in PREMIX 1 EA IV STA (09:50)
[2020-11-13] MEDS: MORPHINE SULFATE INJ 2 MG/ML DISP.SYRIN IV PRN ×2 (10:03→15:11)
[2020-11-13 12:00] VITALS: BP 107/69
[2020-11-13 17:49] VITALS: BP 109/68
--- NOTE | 2020-11-13 19:25 | NUR ---
RN CLOSING NOTE PT IS AWAKE IN BED RESTING. T PIECE PRESENT AND ON COOL AEROSOL. NO SOB OR RESPIRATORY DISTRESS PRESENT. O2 SAT >95%. A/O X4 AND SPEAKS MONGOLIAN AND KYRGYZ. NO DIGITAL CONTENT COORDINATOR. PRESENT. EDEMA PRESENT ON ABDOMEN. SELF AMBULATORY WITH STEADY GAIT AND BATHROOM PRIVILEGES. SKIN IS INTACT. IV PRESENT ON R WRIST 20G. HD CATH PRESENT ON R IJ. ROUTINE MEDS GIVEN. LABS AND ORDERS REVIEWED. SAFETY MEASURES IN PLACE. SIDE RAILS RAISED. BED LOWERED. CALL LIGHT WITHIN REACH. REPORT GIVEN TO NIGHT NURSE FOR ERICA.
--- NOTE | 2020-11-13 19:40 | NUR ---
RN OPENING NOTE PT RECEIVED AWAKE IN BED RESTING. T PIECE PRESENT AND ON COOL AEROSOL, 3L O2 NO SOB OR RESPIRATORY DISTRESS PRESENT. O2 SAT >95%. A/O X4 AND SPEAKS MACEDONIAN AND SAMOAN. NO ORGANIZATIONAL DEVELOPMENT SPECIALIST. PRESENT. EDEMA PRESENT ON ABDOMEN R/T ASCITES. SELF AMBULATORY WITH STEADY GAIT AND BATHROOM PRIVILEGES. SKIN IS INTACT. IV PRESENT ON R WRIST 20G. HD CATH PRESENT ON R IJ. S/P THORACENTESIS. SAFETY MEASURES IN PLACE. SIDE RAILS RAISED. BED LOWERED. CALL LIGHT WITHIN REACH. NO ACUTE DISTRESS NOTED AT THIS TIME
[2020-11-13 20:00] VITALS: BP 112/65
--- NOTE | 2020-11-13 20:42 | NUR ---
ALBUTEROL/ATROVENT MDI GIVEN AT THIS TIME. PT IS AWAKE AND ALERT ON 3L TRACH MASK. NO RESP DISTRESS NOTED AT THIS TIME.
[2020-11-13] MEDS: ATORVASTATIN 10 MG TABLET PO SCH (21:37)
[2020-11-13] MEDS: TAMSULOSIN 0.4 MG CAP.SR.24H PO SCH (21:37)
[2020-11-14] MEDS: IPRATROPIUM NEB FS 0.5 MG/2.5 ML AMPUL.NEB NEB SCH ×4 (01:30→19:30)
[2020-11-14] MEDS: IPRATROPIUM BROMIDE 14 GM INHALER (or 12.9 GM) IH SCH ×4 (01:38→20:10)
[2020-11-14] MEDS: ALBUTEROL SULFATE 8 GM HFA.AER.AD IH SCH ×4 (01:38→20:11)
[2020-11-14 04:00] VITALS: BP 121/69
--- NOTE | 2020-11-14 06:32 | NUR ---
RN CLOSING NOTE PT IS AWAKE IN BED RESTING. ALERT AND ORIENTED X4. ABLE TO SPEAK THROUGH T-PIECE. T PIECE ON COOL AEROSOL 5.0 L O2. NO SOB OR RESPIRATORY DISTRESS PRESENT. O2 SAT >95%. SPEAKS [place] AND [place]INID[place]IAN. NO CUSTOMER RELATIONS ASSISTANT PRESENT. EDEMA PRESENT ON ABDOMEN R/T ASCITES. SELF AMBULATORY WITH STEADY GAIT AND BATHROOM PRIVILEGES. SKIN IS INTACT. IV PRESENT ON R WRIST 20G. HD CATH PRESENT ON R IJ. ROUTINE MEDS GIVEN, CRUSHED IN APPLE SAUCE AND TOLERATED WELL. LABS AND ORDERS REVIEWED. PT. WAS ABLE TO REST COMFORTABLY THROUGHOUT THE NIGHT. CURRENTLY DENIES ANY PAIN. SAFETY MEASURES IN PLACE. SIDE RAILS RAISED. BED LOWERED. CALL LIGHT WITHIN REACH. NO ACUTE DISTRESS NOTED AT THIS TIME. WILL ENDORSE CONTINUITY OF CARE TO MORNING SHIFT RN.
[2020-11-14] MEDS: MORPHINE SULFATE INJ 2 MG/ML DISP.SYRIN IV PRN ×2 (06:56→11:38)
--- NOTE | 2020-11-14 07:10 | NUR ---
RN OPENING NOTE PT IS AWAKE IN BED RESTING. T-PIECE PRESENT AND ON COOL AEROSOL. NO SOB OR RESPIRATORY DISTRESS PRESENT. O2 SAT >95%. PATIENT IS ALERT AND ORIENTED X4 AND SPEAKS [place] AND CITIZEN OF [place] AND [place]. NO HAT CUTTER. PRESENT. PATIENT IS AMBULATORY WITH STEADY GAIT AND BATHROOM PRIVILEGES. SKIN IS INTACT. IV PRESENT ON R WRIST 20G. HD CATH PRESENT ON R IJ, COVERED WITH DRESSING, DRY AND INTACT. PAIN COMPLAINS OF PAIN / ABDOMINAL DISCOMFORT WITH MORPIHINE LAST GIVEN AT 0656H. NON PHARMACOLOGICAL PAIN MANAGAGEMENT DONE LIKE DEEP BREATHING EXERCISES AND WATCHING TV DONE. SAFETY MEASURES IN PLACE. SIDE RAILS RAISED. BED LOWERED AND BED LOCKED. CALL LIGHT AND BEDSIDE TABLE WITHIN REACH AT ALL TIMES. WILL CONTINUE TO MONITOR.
[2020-11-14 07:28] LABS: BASOPHILS # (AUTO) 0.1 K/uL (0.0-0.2); BASOPHILS % (AUTO) 1.7 % (0.0-2.0); EOSINOPHILS % (AUTO) 1.7 % (0.0-6.0); HEMATOCRIT 31 % (39-51); LYMPHOCYTES # (AUTO) 1.1 K/uL (0.8-4.8); LYMPHOCYTES % (AUTO) 13.3 % (20.0-44.0); MEAN CORPUSCULAR HGB CONC 32 g/dl (31.0-36.0); MEAN CORPUSCULAR VOLUME 88 fL (80-96); MONOCYTES # (AUTO) 0.8 K/uL (0.1-1.30); MONOCYTES % (AUTO) 9.9 % (2.0-12.0); NEUTROPHILS # (AUTO) 5.9 K/uL (1.8-8.9); NEUTROPHILS % (AUTO) 73.4 % (43.0-81.0); PLATELET COUNT (AUTO) 185 K/uL (150-450); RED BLOOD CELL COUNT(AUTO) 3.56 MIL/uL (4.5-6.0)
[2020-11-14 07:40] LABS: ALBUMIN 2.2 g/dL (3.4-5.0); CALCIUM, SERUM 8.8 mg/dL (8.5-10.1); MAGNESIUM 2.9 mg/dL (1.8-2.4); PHOSPHORUS 4.4 mg/dL (2.5-4.9); POTASSIUM 5.1 mmol/L (3.5-5.1); TOTAL PROTEIN, SERUM 7.1 g/dL (6.4-8.2)
[2020-11-14 07:46] LABS: CREATININE 7.5 mg/dL (0.6-1.3)
[2020-11-14] MEDS: FOLIC ACID 1 MG TABLET PO SCH (08:52)
[2020-11-14] MEDS: LACTULOSE 10 G/15 ML UDC (PYXIS) PO SCH ×4 (08:52→21:47)
[2020-11-14] MEDS: GABAPENTIN 300 MG CAPSULE PO SCH ×3 (08:52→16:45)
[2020-11-14] MEDS: PANTOPRAZOLE 40 MG TABLET.DR PO SCH (08:52)
[2020-11-14] MEDS: CALCIUM ACETATE 667 MG TABLET PO SCH ×2 (08:52→16:45)
[2020-11-14] MEDS: VITAMIN B COMP W-C 1 TAB TABLET PO SCH (08:52)
[2020-11-14] MEDS: LISINOPRIL (20MG) 20 MG TABLET PO SCH (08:53)
[2020-11-14] MEDS: OXYBUTYNIN CHLORIDE 5 MG TABLET PO SCH ×3 (08:53→16:45)
[2020-11-14] MEDS: LEVETIRACETAM (250 MG) 250 MG TABLET PO SCH ×2 (08:53→21:47)
[2020-11-14] MEDS: AMLODIPINE BESYLATE 10 MG TABLET PO SCH (08:53)
[2020-11-14] MEDS: FERROUS SULFATE (325 MG) 325 MG/TAB TABLET PO SCH (08:53)
[2020-11-14] MEDS: CARVEDILOL 6.25 MG TABLET PO SCH ×2 (08:54→16:46)
[2020-11-14] MEDS: NEPRO VAN 237 ML CAN PO SCH (08:59)
[2020-11-14] MEDS: ENOXAPARIN SODIUM 30 MG/0.3 ML DISP.SYRIN SQ SCH (09:04)
[2020-11-14] MEDS: PROSOURCE / PROSTAT (PYXIS) 30 ML UDC PO SCH ×2 (10:11→21:57)
[2020-11-14 12:00] VITALS: BP 120/70
--- NOTE | 2020-11-14 17:35 | NUR ---
MS RN NOTE PATIENT TRANSFERRED TO [facility] ORDERED. PATIETN ACCOMPANIED BY 2 NURSES AND THE PATIENT'S . PATIENT ENDORSED TO VALORIE KO. IN STABLE CONDITION.
--- NOTE | 2020-11-14 17:54 | NUR ---
RN NOTES BEDSIDE ENDORSEMENT AND REPORT RECEIVED FROM VALORIE BLOOM. TRANSFERRED TO UNIT AT ROOM 320-1 VIA PATIENT'S BED, ACCOMPANIED BY MERLE AND MANDI WESTBROOK NURSES. PATIENT CONNECTED TO T-PIECE AT 5L/MIN FIO2 40%. RESTING W/ EYES CLOSED BUT ABLE TO BE AWAKENED. A/O X4 AND ABLE TO MAKE NEEDS KNOWN. SAFETY MEASURES IN PLACE. ORIENTED TO ROOM AND USE OF CALL LIGHT REMOTE FOR STAFF ASSISTANCE. WILL CONTINUE TO MONITOR.
--- NOTE | 2020-11-14 19:30 | NUR ---
RN OPENING NOTES PATIENT IS SLEEPING, EASILY AWAKENED. PATIENT IS ABLE TO MAKE NEEDS KNOWN. AMBULATORY RO BATHROOM. PATIENT HAS A TRACH PRESENT, WITH COOL AEROSOL MASK ON 5 L OF OXYGEN SUPPLEMENTATION. PATIENT ENCOURAGED NOT TO TAKE OFF OXYGEN MASK OR LIMIT TAKING IT OFF HE WILL DE-SAT. NO COMPLAINS OF ANY PAIN OR DISCOMFORT AT THIS TIME. L HAND 22 G PATENT AND INTACT. SAFETY MEASURES IN PLACE: BED LOCKED IN LOWEST POSITION, CALL LIGHT WITHIN REACH, SIDE RAILS UP. WILL MONITOR PATIENT CLOSELY.
[2020-11-14 20:00] VITALS: BP 132/79
[2020-11-14] MEDS: TAMSULOSIN 0.4 MG CAP.SR.24H PO SCH (21:47)
[2020-11-14] MEDS: ATORVASTATIN 10 MG TABLET PO SCH (21:47)
[2020-11-15] MEDS: ALBUTEROL SULFATE 8 GM HFA.AER.AD IH SCH ×4 (00:57→20:02)
[2020-11-15] MEDS: IPRATROPIUM BROMIDE 14 GM INHALER (or 12.9 GM) IH SCH ×4 (00:58→20:03)
[2020-11-15] MEDS: IPRATROPIUM NEB FS 0.5 MG/2.5 ML AMPUL.NEB NEB SCH ×4 (01:12→19:30)
[2020-11-15 06:44] LABS: BASOPHILS # (AUTO) 0.1 K/uL (0.0-0.2); EOSINOPHILS % (AUTO) 1.8 % (0.0-6.0); HEMATOCRIT 28 % (39-51); LYMPHOCYTES # (AUTO) 1.1 K/uL (0.8-4.8); LYMPHOCYTES % (AUTO) 13.8 % (20.0-44.0); MEAN CORPUSCULAR HGB CONC 33 g/dl (31.0-36.0); MEAN CORPUSCULAR VOLUME 86 fL (80-96); MONOCYTES # (AUTO) 0.9 K/uL (0.1-1.30); MONOCYTES % (AUTO) 11.8 % (2.0-12.0); NEUTROPHILS # (AUTO) 5.6 K/uL (1.8-8.9); NEUTROPHILS % (AUTO) 71.6 % (43.0-81.0); PLATELET COUNT (AUTO) 165 K/uL (150-450); RED BLOOD CELL COUNT(AUTO) 3.21 MIL/uL (4.5-6.0); WHITE BLOOD COUNT (AUTO) 7.8 K/uL (4.3-11.0)
[2020-11-15 07:08] LABS: ALBUMIN 1.9 g/dL (3.4-5.0); BILIRUBIN,TOTAL 6.2 mg/dL (0.2-1.0); CALCIUM, SERUM 8.5 mg/dL (8.5-10.1); POTASSIUM 5.1 mmol/L (3.5-5.1); TOTAL PROTEIN, SERUM 6.4 g/dL (6.4-8.2)
[2020-11-15 07:11] LABS: CREATININE 9.4 mg/dL (0.6-1.3)
--- NOTE | 2020-11-15 07:15 | NUR ---
RN NOTE RECEIVED PATIENT IN BED. A/O X4. NO SOB NOTED. NO S/S OF RESPIRATORY DISTRESS. PT IS ON T-PIECE 5LPM COOL AEROSOL. DENIES ANY PAIN OR DISCOMFORT AT THIS TIME. IV ACCESS ON L HAND #22 G, INTACT. R IJ HD CATH C/D/I. SAFETY MEASURES MAINTAINED. BED IN LOWEST POSITION, BRAKES LOCKED. SIDE RAILS UP X2. CALL LIGHT WITHIN REACH. WILL CONTINUE PLAN OF CARE. Addendum: 11/15/20 at 1702 by MATHEW PINO RN TRACH COLLAR AT 5 LPM
--- NOTE | 2020-11-15 07:25 | NUR ---
RN CLOSING NOTE PATIENT STABLE AT THIS TIME. ENDORSED TO DAY SHIFT NURSE MATHEW FOR ERICA.
[2020-11-15 08:00] VITALS: BP 137/81
[2020-11-15] MEDS: PANTOPRAZOLE 40 MG TABLET.DR PO SCH (08:43)
[2020-11-15] MEDS: CALCIUM ACETATE 667 MG TABLET PO SCH ×2 (08:43→16:29)
[2020-11-15] MEDS: LACTULOSE 10 G/15 ML UDC (PYXIS) PO SCH ×4 (08:43→21:57)
[2020-11-15] MEDS: VITAMIN B COMP W-C 1 TAB TABLET PO SCH (08:44)
[2020-11-15] MEDS: GABAPENTIN 300 MG CAPSULE PO SCH ×3 (08:44→16:28)
[2020-11-15] MEDS: AMLODIPINE BESYLATE 10 MG TABLET PO SCH (08:44)
[2020-11-15] MEDS: CARVEDILOL 6.25 MG TABLET PO SCH ×2 (08:44→16:29)
[2020-11-15] MEDS: LEVETIRACETAM (250 MG) 250 MG TABLET PO SCH ×2 (08:44→21:57)
[2020-11-15] MEDS: OXYBUTYNIN CHLORIDE 5 MG TABLET PO SCH ×3 (08:44→16:29)
[2020-11-15] MEDS: FERROUS SULFATE (325 MG) 325 MG/TAB TABLET PO SCH (08:44)
[2020-11-15] MEDS: LISINOPRIL (20MG) 20 MG TABLET PO SCH (08:45)
[2020-11-15] MEDS: FOLIC ACID 1 MG TABLET PO SCH (08:46)
[2020-11-15] MEDS: ENOXAPARIN SODIUM 30 MG/0.3 ML DISP.SYRIN SQ SCH (08:46)
[2020-11-15] MEDS: PROSOURCE / PROSTAT (PYXIS) 30 ML UDC PO SCH ×2 (08:48→21:59)
[2020-11-15] MEDS: NEPRO VAN 237 ML CAN PO SCH (08:57)
[2020-11-15 12:00] VITALS: BP 95/53
[2020-11-15 16:00] VITALS: BP 120/76
--- NOTE | 2020-11-15 16:28 | NUR ---
RT NOTE PT MDI ALBUTEROL AND ATROVENT GIVEN. DUPLICATE ATROVENT (NEBULIZED) HELD DUE TO EXISTING MDI ORDER. NO DISTRESS NOTED. PT AWAKE AND ALERT. RN NOTIFIED. Addendum: 11/15/20 at 1630 by HEATH WOLF RT Amended: Links added.
--- NOTE | 2020-11-15 18:13 | NUR ---
MS RN NOTE PATIENT RESTING IN BED. A/O X4. NO SOB NOTED. NO S/S OF RESPIRATORY DISTRESS. NO REPORTS OF PAIN OR DISCOMFORT AT THIS TIME. PT IS ON TRACH COLLAR AT 5 LPM COOL AEROSOL. IV ACCESS ON L HAND #22 G, INTACT AND PATENT. R IJ HD CATH C/D/I. ALL DUE MEDS GIVEN RODERED. ALL NEEDS HAVE BEEN MET AND ATTENDED. SAFETY MEASURES MAINTAINED. BED IN LOWEST POSITION, BRAKES LOCKED. SIDE RAILS UP X2. KEPT CALL LIGHT WITHIN REACH. WILL ENDORSE CONTINUITY OF CARE TO ONCOMING SHIFT.
--- NOTE | 2020-11-15 18:14 | NUR ---
MS RN NOTE PT IS HAVING ONGOING HEMODIALYSIS
--- NOTE | 2020-11-15 19:15 | NUR ---
RN OPENING NOTES PATIENT IS SLEEPING, EASILY AWAKENED. PATIENT IS ABLE TO MAKE NEEDS KNOWN. PATIENT HAS AN ONGOING HD WITH [employer]. PATIENT HAS A TRACH COLLAR WITH COOL AEROSOL MASK ON 5 L OF OXYGEN SUPPLEMENTATION. NO COMPLAINS OF ANY PAIN OR DISCOMFORT AT THIS TIME. L HAND 22 G PATENT AND INTACT. SAFETY MEASURES IN PLACE: BED LOCKED IN LOWEST POSITION, CALL LIGHT WITHIN REACH, SIDE RAILS UP. WILL MONITOR PATIENT CLOSELY.
[2020-11-15 20:00] VITALS: BP 103/67
--- NOTE | 2020-11-15 21:45 | NUR ---
RN NOTE HD OUTPUT: 1600, PATIENT REMAINS STABLE AT THIS TIME. NO HYPOTENSION.
[2020-11-15] MEDS: TAMSULOSIN 0.4 MG CAP.SR.24H PO SCH (21:57)
[2020-11-15] MEDS: ATORVASTATIN 10 MG TABLET PO SCH (21:58)
[2020-11-16] MEDS: IPRATROPIUM NEB FS 0.5 MG/2.5 ML AMPUL.NEB NEB SCH ×4 (01:30→19:30)
[2020-11-16] MEDS: ALBUTEROL SULFATE 8 GM HFA.AER.AD IH SCH ×4 (01:30→19:30)
[2020-11-16] MEDS: IPRATROPIUM BROMIDE 14 GM INHALER (or 12.9 GM) IH SCH ×4 (01:30→19:30)
[2020-11-16 05:50] LABS: BASOPHILS # (AUTO) 0.1 K/uL (0.0-0.2); EOSINOPHILS % (AUTO) 2.1 % (0.0-6.0); HEMATOCRIT 28 % (39-51); MEAN CORPUSCULAR HGB CONC 33 g/dl (31.0-36.0); MEAN CORPUSCULAR VOLUME 87 fL (80-96); MONOCYTES # (AUTO) 0.9 K/uL (0.1-1.30); MONOCYTES % (AUTO) 11.5 % (2.0-12.0); NEUTROPHILS # (AUTO) 5.7 K/uL (1.8-8.9); NEUTROPHILS % (AUTO) 72.4 % (43.0-81.0); PLATELET COUNT (AUTO) 152 K/uL (150-450); RED BLOOD CELL COUNT(AUTO) 3.16 MIL/uL (4.5-6.0); WHITE BLOOD COUNT (AUTO) 7.9 K/uL (4.3-11.0)
[2020-11-16 06:15] LABS: ALBUMIN 1.9 g/dL (3.4-5.0); BILIRUBIN,TOTAL 6.3 mg/dL (0.2-1.0); CALCIUM, SERUM 9.3 mg/dL (8.5-10.1); CREATININE 7.4 mg/dL (0.6-1.3); MAGNESIUM 2.6 mg/dL (1.8-2.4); PHOSPHORUS 4.7 mg/dL (2.5-4.9); POTASSIUM 5.4 mmol/L (3.5-5.1); TOTAL PROTEIN, SERUM 6.4 g/dL (6.4-8.2)
--- NOTE | 2020-11-16 06:50 | NUR ---
RN CLOSING NOTES PATIENT IS AWAKE. PATIENT IS ABLE TO MAKE NEEDS KNOWN. PATIENT HAS A TRACH COLLAR WITH COOL AEROSOL MASK ON 5 L OF OXYGEN SUPPLEMENTATION. BREATHING EVEN AND UNLABORED. NO COMPLAINS OF ANY PAIN OR DISCOMFORT AT THIS TIME. L HAND 22 G PATENT AND INTACT. SAFETY MEASURES MAINTAINED. ALL NEEDS MET AND ATTENDED. ALL ORDERS CARRIED OUT. WILL ENDORSE TO DAY SHIFT NURSE FOR ERICA.
--- NOTE | 2020-11-16 07:25 | NUR ---
RN OPENING NOTES RECEIVED PATIENT AWAKE IN BED. ALERT AND ORIENTED X 4. NO SIGNS OR SYMPTOMS OF DISTRESS NOTED. NO COMPLAINTS OF PAIN AT THIS TIME.PATIENT IS AWAKE. PATIENT IS ABLE TO MAKE NEEDS KNOWN. PATIENT HAS A TRACH COLLAR WITH COOL AEROSOL MASK ON 5 L OF OXYGEN SUPPLEMENTATION. IV ACCESS LHAND#22 PATENT AND INTACT. SAFETY MEASURES IN PLACE WITH BED AT LOWEST POSITION AND SIDE RAILS UP X 2. CALL LIGHT IS WITHIN REACH. WILL CONTINUE TO MONITOR THROUGHOUT SHIFT.
[2020-11-16 08:10] VITALS: BP 122/73
[2020-11-16] MEDS: LACTULOSE 10 G/15 ML UDC (PYXIS) PO SCH ×4 (08:24→21:27)
[2020-11-16] MEDS: LEVETIRACETAM (250 MG) 250 MG TABLET PO SCH ×2 (08:24→21:32)
[2020-11-16] MEDS: GABAPENTIN 300 MG CAPSULE PO SCH ×3 (08:24→16:05)
[2020-11-16] MEDS: OXYBUTYNIN CHLORIDE 5 MG TABLET PO SCH ×3 (08:24→16:05)
[2020-11-16] MEDS: CALCIUM ACETATE 667 MG TABLET PO SCH ×2 (08:24→16:05)
[2020-11-16] MEDS: FERROUS SULFATE (325 MG) 325 MG/TAB TABLET PO SCH (08:24)
[2020-11-16] MEDS: PANTOPRAZOLE 40 MG TABLET.DR PO SCH (08:24)
[2020-11-16] MEDS: FOLIC ACID 1 MG TABLET PO SCH (08:24)
[2020-11-16] MEDS: LISINOPRIL (20MG) 20 MG TABLET PO SCH (08:25)
[2020-11-16] MEDS: CARVEDILOL 6.25 MG TABLET PO SCH ×2 (08:26→16:06)
[2020-11-16] MEDS: ENOXAPARIN SODIUM 30 MG/0.3 ML DISP.SYRIN SQ SCH (08:27)
[2020-11-16] MEDS: VITAMIN B COMP W-C 1 TAB TABLET PO SCH (08:32)
[2020-11-16] MEDS: AMLODIPINE BESYLATE 10 MG TABLET PO SCH (08:34)
[2020-11-16] MEDS: PROSOURCE / PROSTAT (PYXIS) 30 ML UDC PO SCH ×2 (09:00→21:37)
[2020-11-16] MEDS: NEPRO VAN 237 ML CAN PO SCH (09:00)
--- NOTE | 2020-11-16 10:19 | NUR ---
MS RN NOTES DR. ZORAN WEBER MADE AWARE OF POTASSIUM LEVEL 5.4 WITH NO NEW ORDERS.
[2020-11-16 16:42] VITALS: BP 98/56
[2020-11-16 20:00] VITALS: BP 103/57
--- NOTE | 2020-11-16 20:00 | NUR ---
MS RN OPENING NOTES PATIENT RESTING IN CHAIR WITH AT BEDSIDE, A/O X 4. PT IS ON TRACH COLLAR AT 5 LPM COOL AEROSOL. NO DISTRESS OR SOB NOTED. NO REPORTS OF PAIN OR DISCOMFORT AT THIS TIME. IV ACCESS ON L HAND #22 G, INTACT AND PATENT, SALINE LOCKED. RIGHT IJ HD CATH C/D/I. SAFETY MEASURES IN PLACE: BED LOCKED IN LOWEST POSITION, SIDE RAILS UP X 2, CALL LIGHT WITHIN REACH. WILL CONTINUE TO MONITOR THROUGHOUT SHIFT.
[2020-11-16] MEDS: ATORVASTATIN 10 MG TABLET PO SCH (21:28)
[2020-11-16] MEDS: TAMSULOSIN 0.4 MG CAP.SR.24H PO SCH (21:28)
[2020-11-17] MEDS: IPRATROPIUM NEB FS 0.5 MG/2.5 ML AMPUL.NEB NEB SCH ×4 (01:18→19:30)
[2020-11-17] MEDS: ALBUTEROL SULFATE 8 GM HFA.AER.AD IH SCH ×4 (01:19→19:30)
[2020-11-17] MEDS: IPRATROPIUM BROMIDE 14 GM INHALER (or 12.9 GM) IH SCH ×4 (01:19→19:30)
--- NOTE | 2020-11-17 07:00 | NUR ---
MS RN CLOSING NOTES PATIENT AWAKE IN ROOM, A/O X 4. PT IS ON TRACH COLLAR AT 5 LPM COOL AEROSOL. NO DISTRESS OR SOB NOTED. NO REPORTS OF PAIN OR DISCOMFORT AT THIS TIME. IV ACCESS ON L HAND #22 G, INTACT AND PATENT, SALINE LOCKED. RIGHT IJ HD CATH C/D/I. MEDICATIONS GIVEN ORDERED, PT NEEDS MET THROUGHOUT SHIFT. SAFETY MEASURES IN PLACE: BED LOCKED IN LOWEST POSITION, SIDE RAILS UP X 2, CALL LIGHT WITHIN REACH. WILL ENDORSE TO DAY SHIFT NURSE FOR CONTINUITY OF CARE
--- NOTE | 2020-11-17 07:35 | NUR ---
RN OPENING NOTES RECEIVED PATIENT AWAKE SITTING IN CHAIR. ALERT AND ORIENTED X 4. NO SIGNS OR SYMPTOMS OF DISTRESS NOTED. NO COMPLAINTS OF PAIN AT THIS TIME.PATIENT IS AWAKE. PATIENT IS ABLE TO MAKE NEEDS KNOWN. PATIENT HAS A TRACH COLLAR WITH COOL AEROSOL MASK ON 5 L OF OXYGEN SUPPLEMENTATION. IV ACCESS LHAND#22 PATENT AND INTACT. SAFETY MEASURES IN PLACE WITH BED AT LOWEST POSITION AND SIDE RAILS UP X 2. CALL LIGHT IS WITHIN REACH. WILL CONTINUE TO MONITOR THROUGHOUT SHIFT.
[2020-11-17 08:00] VITALS: BP 135/61
--- NOTE | 2020-11-17 08:31 | NUR ---
RT Pt received awake and alert on cool aerosol with adequate SpO2. MDI tx given with no adverse reactions. BVM and spare trach by bedside. No SOB or respiratory distress noted. Addendum: 11/17/20 at 1433 by BILLY MEJIA RT Amended: Links added.
[2020-11-17] MEDS: LEVETIRACETAM (250 MG) 250 MG TABLET PO SCH ×2 (08:40→21:52)
[2020-11-17] MEDS: CALCIUM ACETATE 667 MG TABLET PO SCH ×2 (08:40→17:28)
[2020-11-17] MEDS: LACTULOSE 10 G/15 ML UDC (PYXIS) PO SCH ×6 (08:41→21:52)
[2020-11-17] MEDS: FERROUS SULFATE (325 MG) 325 MG/TAB TABLET PO SCH (08:41)
[2020-11-17] MEDS: ENOXAPARIN SODIUM 30 MG/0.3 ML DISP.SYRIN SQ SCH (08:42)
[2020-11-17] MEDS: VITAMIN B COMP W-C 1 TAB TABLET PO SCH (08:42)
[2020-11-17] MEDS: FOLIC ACID 1 MG TABLET PO SCH (08:42)
[2020-11-17] MEDS: PANTOPRAZOLE 40 MG TABLET.DR PO SCH (08:42)
[2020-11-17] MEDS: OXYBUTYNIN CHLORIDE 5 MG TABLET PO SCH ×3 (08:43→17:28)
[2020-11-17] MEDS: LISINOPRIL (20MG) 20 MG TABLET PO SCH (08:45)
[2020-11-17] MEDS: AMLODIPINE BESYLATE 10 MG TABLET PO SCH (08:45)
[2020-11-17] MEDS: NEPRO VAN 237 ML CAN PO SCH (08:47)
[2020-11-17 08:48] LABS: BASOPHILS # (AUTO) 0.1 K/uL (0.0-0.2); BASOPHILS % (AUTO) 1.1 % (0.0-2.0); EOSINOPHILS % (AUTO) 2.6 % (0.0-6.0); HEMATOCRIT 29 % (39-51); HEMOGLOBIN 9.6 g/dL (13.5-17.5); LYMPHOCYTES # (AUTO) 1.2 K/uL (0.8-4.8); LYMPHOCYTES % (AUTO) 16.4 % (20.0-44.0); MEAN CORPUSCULAR HGB CONC 33 g/dl (31.0-36.0); MEAN CORPUSCULAR VOLUME 87 fL (80-96); MONOCYTES # (AUTO) 0.7 K/uL (0.1-1.30); MONOCYTES % (AUTO) 9.7 % (2.0-12.0); NEUTROPHILS # (AUTO) 5.2 K/uL (1.8-8.9); NEUTROPHILS % (AUTO) 70.2 % (43.0-81.0); PLATELET COUNT (AUTO) 163 K/uL (150-450); RED BLOOD CELL COUNT(AUTO) 3.36 MIL/uL (4.5-6.0); WHITE BLOOD COUNT (AUTO) 7.4 K/uL (4.3-11.0)
[2020-11-17] MEDS: GABAPENTIN 300 MG CAPSULE PO SCH ×3 (08:52→17:28)
[2020-11-17] MEDS: CARVEDILOL 6.25 MG TABLET PO SCH ×2 (08:52→17:00)
[2020-11-17] MEDS: PROSOURCE / PROSTAT (PYXIS) 30 ML UDC PO SCH ×2 (08:53→21:52)
[2020-11-17 11:01] LABS: BILIRUBIN,TOTAL 6.7 mg/dL (0.2-1.0); CALCIUM, SERUM 9.3 mg/dL (8.5-10.1); POTASSIUM 5.5 mmol/L (3.5-5.1); TOTAL PROTEIN, SERUM 6.8 g/dL (6.4-8.2)
[2020-11-17 11:12] LABS: CREATININE 9.2 mg/dL (0.6-1.3)
[2020-11-17 13:56] LABS: BILIRUBIN,DIRECT 5.5 mg/dL (0.0-0.2); BILIRUBIN,TOTAL 6.7 mg/dL (0.2-1.0); TOTAL PROTEIN, SERUM 6.8 g/dL (6.4-8.2)
--- NOTE | 2020-11-17 14:20 | NUR ---
RT Trach change done with new same size trach (Shiley 6 XLT Proximal cuffless) per Dr. Ayers orders. No complications noted, equal bilateral breath sounds and chest rise noted. No SOB or respiratory distress noted. Addendum: 11/17/20 at 1433 by BILLY MEJIA RT Amended: Links added.
--- NOTE | 2020-11-17 19:21 | NUR ---
RN CLOSING NOTES PATIENT AWAKE SITTING IN CHAIR WITH FAMILY AT BEDSIDE. ALERT AND ORIENTED X 4. NO SIGNS OR SYMPTOMS OF DISTRESS NOTED. NO COMPLAINTS OF PAIN AT THIS TIME. PATIENT IS ABLE TO MAKE NEEDS KNOWN. PATIENT HAS A TRACH COLLAR THAT WAS CHANGED TODAY PER DR. MUNSON. ON 5 L OF OXYGEN SUPPLEMENTATION COOL AEROSOL. IV ACCESS LHAND#22 PATENT AND INTACT. SAFETY MEASURES IN PLACE WITH BED AT LOWEST POSITION AND SIDE RAILS UP X 2. CALL LIGHT IS WITHIN REACH. WILL ENDORSE CONTINUITY OF CARE TO NEXT NURSE.
--- NOTE | 2020-11-17 20:00 | NUR ---
MS RN OPENING NOTES PATIENT RESTING IN BED WITH FAMILY AT BEDSIDE, A/O X 4, PT ABLE TO MAKE NEEDS KNOWN. PT HAS A TRACH COLLAR WITH 5 LPM COOL AEROSOL PRN, NO DISTRESS OR SOB NOTED, BREATHING EVEN AND UNLABORED. NO REPORTS OF PAIN OR DISCOMFORT AT THIS TIME. IV ACCESS ON L HAND #22 G, INTACT AND PATENT, SALINE LOCKED. RIGHT IJ HD CATH C/D/I. PATIENT STATES HE HAS NO NEEDS AT THIS TIME. SAFETY MEASURES IN PLACE: BED LOCKED IN LOWEST POSITION, SIDE RAILS UP X 2, CALL LIGHT WITHIN REACH. WILL CONTINUE TO MONITOR THROUGHOUT SHIFT.
[2020-11-17 20:31] VITALS: BP 110/57
[2020-11-17] MEDS: ATORVASTATIN 10 MG TABLET PO SCH (21:52)
[2020-11-17] MEDS: TAMSULOSIN 0.4 MG CAP.SR.24H PO SCH (21:52)
[2020-11-17] MEDS: ACETAMINOPHEN 325 MG TABLET PO PRN (22:13)
[2020-11-18] MEDS: IPRATROPIUM NEB FS 0.5 MG/2.5 ML AMPUL.NEB NEB SCH ×4 (01:30→19:30)
[2020-11-18] MEDS: ALBUTEROL SULFATE 8 GM HFA.AER.AD IH SCH ×4 (01:30→20:10)
[2020-11-18] MEDS: IPRATROPIUM BROMIDE 14 GM INHALER (or 12.9 GM) IH SCH ×4 (01:30→20:10)
--- NOTE | 2020-11-18 06:56 | NUR ---
MS RN CLOSING NOTES PATIENT AWAKE IN ROOM, A/O X 4. PT IS ON TRACH COLLAR C/D/I. NO DISTRESS OR SOB NOTED, BREATHING EVEN AND UNLABORED. NO REPORTS OF PAIN OR DISCOMFORT AT THIS TIME. IV ACCESS ON L HAND #22 G, INTACT AND SALINE LOCKED. RIGHT IJ HD CATH C/D/I. MEDICATIONS GIVEN ORDERED, PT NEEDS MET THROUGHOUT SHIFT. PATIENT NPO FOR NM HIDA TODAY. SAFETY MEASURES IN PLACE: BED LOCKED IN LOWEST POSITION, SIDE RAILS UP X 2, CALL LIGHT WITHIN REACH. WILL ENDORSE TO DAY SHIFT NURSE FOR CONTINUITY OF CARE
[2020-11-18 07:23] LABS: BASOPHILS # (AUTO) 0.1 K/uL (0.0-0.2); BASOPHILS % (AUTO) 0.8 % (0.0-2.0); EOSINOPHILS % (AUTO) 2.6 % (0.0-6.0); HEMATOCRIT 27 % (39-51); MEAN CORPUSCULAR HGB CONC 33 g/dl (31.0-36.0); MEAN CORPUSCULAR VOLUME 87 fL (80-96); MONOCYTES # (AUTO) 0.6 K/uL (0.1-1.30); MONOCYTES % (AUTO) 8.3 % (2.0-12.0); NEUTROPHILS # (AUTO) 5.7 K/uL (1.8-8.9); NEUTROPHILS % (AUTO) 75.3 % (43.0-81.0); PLATELET COUNT (AUTO) 151 K/uL (150-450); RED BLOOD CELL COUNT(AUTO) 3.14 MIL/uL (4.5-6.0); WHITE BLOOD COUNT (AUTO) 7.6 K/uL (4.3-11.0)
[2020-11-18] MEDS: PANTOPRAZOLE 40 MG TABLET.DR PO SCH (07:30)
--- NOTE | 2020-11-18 07:51 | NUR ---
RN OPENING NOTES RECEIVED PATIENT ASLEEP IN BED, EASY TO AROUSE. ALERT AND ORIENTED X 4. NO SIGNS OR SYMPTOMS OF DISTRESS NOTED. NO COMPLAINTS OF PAIN AT THIS TIME. PATIENT IS ABLE TO MAKE NEEDS KNOWN. PATIENT HAS A TRACH COLLAR WITH COOL AEROSOL MASK ON 5 L OF OXYGEN SUPPLEMENTATION. IV ACCESS AND#22 PATENT AND INTACT. SAFETY MEASURES IN PLACE WITH BED AT LOWEST POSITION AND SIDE RAILS UP X 2. CALL LIGHT IS WITHIN REACH. WILL CONTINUE TO MONITOR THROUGHOUT SHIFT.
[2020-11-18 08:09] VITALS: BP 122/60
[2020-11-18 08:39] LABS: ALBUMIN 1.9 g/dL (3.4-5.0); BILIRUBIN,TOTAL 6.1 mg/dL (0.2-1.0); CALCIUM, SERUM 9.4 mg/dL (8.5-10.1); TOTAL PROTEIN, SERUM 6.5 g/dL (6.4-8.2)
--- NOTE | 2020-11-18 08:40 | NUR ---
MS RN NOTES PATIENT WAS PICKED UP BY [facility] TO RADIOLOGY DEPT.
[2020-11-18 08:46] LABS: POTASSIUM 6.3 mmol/L (3.5-5.1)
[2020-11-18 08:47] LABS: CREATININE 10.7 mg/dL (0.6-1.3)
[2020-11-18] MEDS: LACTULOSE 10 G/15 ML UDC (PYXIS) PO SCH ×6 (08:57→20:57)
[2020-11-18] MEDS: CARVEDILOL 6.25 MG TABLET PO SCH ×2 (08:58→16:40)
[2020-11-18] MEDS: FERROUS SULFATE (325 MG) 325 MG/TAB TABLET PO SCH (08:58)
[2020-11-18] MEDS: FOLIC ACID 1 MG TABLET PO SCH (08:58)
[2020-11-18] MEDS: OXYBUTYNIN CHLORIDE 5 MG TABLET PO SCH ×3 (08:58→17:08)
[2020-11-18] MEDS: GABAPENTIN 300 MG CAPSULE PO SCH ×3 (08:59→17:08)
[2020-11-18] MEDS: CALCIUM ACETATE 667 MG TABLET PO SCH ×2 (08:59→17:08)
[2020-11-18] MEDS: AMLODIPINE BESYLATE 10 MG TABLET PO SCH (08:59)
[2020-11-18] MEDS: NEPRO VAN 237 ML CAN PO SCH (08:59)
[2020-11-18] MEDS: LEVETIRACETAM (250 MG) 250 MG TABLET PO SCH ×2 (08:59→20:56)
[2020-11-18] MEDS: ENOXAPARIN SODIUM 30 MG/0.3 ML DISP.SYRIN SQ SCH (09:00)
[2020-11-18] MEDS: LISINOPRIL (20MG) 20 MG TABLET PO SCH (09:00)
[2020-11-18] MEDS: PROSOURCE / PROSTAT (PYXIS) 30 ML UDC PO SCH ×2 (09:00→20:56)
[2020-11-18] MEDS: VITAMIN B COMP W-C 1 TAB TABLET PO SCH (09:00)
--- NOTE | 2020-11-18 09:10 | NUR ---
MS RN NOTES LAB REPORTED CRITICAL LAB VALUE FOR POTASSIUM 6.3. DR. VENTRUA MADE AWARE WITH NEW ORDER FOR NOVOLOG 10 UNITS AND DEXTROSE 50%. ORDERS READ BACK AND CARRIED OUT. PATIENT IS CURRENTLY OUT OF UNIT WITH RADIOLOGY. LEFT MESSAGE WITH HAR[employer] CAPTAIN DR. GÓMEZ CHRISTENSEN. CHARGE NURSE, MATHEW MADE AWARE.
--- NOTE | 2020-11-18 09:55 | NUR ---
MS RN NOTES RECEIVED CALL FROM DR. GÓMEZ CHRISTENSEN TO NOT ADMINISTER NOVOLOG 10 UNITS AND DEXTROSE 50%. ORDERS READ BACK AND CARRIED. DR. WEBER AND MATHEW, CHARGE NURSE MADE AWARE.
[2020-11-18] MEDS ORDERED: INSULIN ASPART/LISPRO 100 UNIT/ML CARTRIDGE SQ ONE (10:00)
[2020-11-18] MEDS ORDERED: DEXTROSE 50%-WATER 50 ML DISP.SYRIN IVP ONE (10:00)
[2020-11-18] MEDS: RIFAXIMIN 550 MG TABLET PO SCH ×2 (13:52→17:08)
[2020-11-18 16:21] VITALS: BP 96/54
--- NOTE | 2020-11-18 17:23 | NUR ---
MS RN NOTES PATIENT WAS PICKED UP BY [facility] FROM RADIOLOGY VIA WHEELCHAIR WITH STABLE VITAL SIGNS.
[2020-11-18 17:42] LABS: THYROID STIMULATING HORMONE 6.84 uIU/mL (0.358-3.74)
--- NOTE | 2020-11-18 18:58 | NUR ---
RN CLOSING NOTES PATIENT AWAKE, RESTING COMFORTABLY IN BED. ALERT AND ORIENTED X 4. NO SIGNS OR SYMPTOMS OF DISTRESS NOTED. NO COMPLAINTS OF PAIN AT THIS TIME. PATIENT IS ABLE TO MAKE NEEDS KNOWN. ON 5 L OF OXYGEN SUPPLEMENTATION COOL AEROSOL. IV ACCESS LHAND#22 PATENT AND INTACT. SAFETY MEASURES IN PLACE WITH BED AT LOWEST POSITION AND SIDE RAILS UP X 2. CALL LIGHT IS WITHIN REACH. WILL ENDORSE CONTINUITY OF CARE TO NEXT NURSE.
--- NOTE | 2020-11-18 19:30 | NUR ---
MS RN OPENING NOTES Patient is sleeping but easy to wake. Oriented x4. No signs of respiratory or any other distress. Will check back. Reminded to use call light for any needs. Patient is able to make needs known.
[2020-11-18 20:00] VITALS: BP 112/65
--- NOTE | 2020-11-18 20:54 | NUR ---
dropped off advanced directive. Placed in chart.
[2020-11-18] MEDS: ATORVASTATIN 10 MG TABLET PO SCH (21:00)
[2020-11-18] MEDS: TAMSULOSIN 0.4 MG CAP.SR.24H PO SCH (21:00)
[2020-11-18] MEDS: HEPARIN SODIUM, PORCINE 5000 UNITS/1 ML VIAL SQ SCH (21:10)
[2020-11-19] MEDS: ALBUTEROL SULFATE 8 GM HFA.AER.AD IH SCH ×4 (01:30→20:41)
[2020-11-19] MEDS: IPRATROPIUM BROMIDE 14 GM INHALER (or 12.9 GM) IH SCH ×4 (01:30→20:40)
[2020-11-19] MEDS: IPRATROPIUM NEB FS 0.5 MG/2.5 ML AMPUL.NEB NEB SCH ×2 (01:30→07:57)
--- NOTE | 2020-11-19 06:17 | NUR ---
MS RN CLOSING NOTES Patient slept well throughout night though easy to wake. A&Ox4. VSS. No episodes of SOB, no signs of distress. Patient is able to make needs known. Independent with ADLs. Breathing treatments from RT done patient reports as helping.
--- NOTE | 2020-11-19 08:00 | NUR ---
RECEIVED PT. IN AM ALERT AND ORIENTED X4.TRACH PATENT,IV AND DIALYSIS CATHS PRESENT. HOB ELEVATED.
[2020-11-19 08:28] VITALS: BP 110/60
[2020-11-19] MEDS: NEPRO VAN 237 ML CAN PO SCH (09:00)
[2020-11-19] MEDS: AMLODIPINE BESYLATE 10 MG TABLET PO SCH (09:00)
[2020-11-19] MEDS: LISINOPRIL (20MG) 20 MG TABLET PO SCH (09:00)
[2020-11-19] MEDS: CARVEDILOL 6.25 MG TABLET PO SCH ×2 (09:00→17:00)
[2020-11-19] MEDS: HEPARIN SODIUM, PORCINE 5000 UNITS/1 ML VIAL SQ SCH ×2 (10:10→21:34)
[2020-11-19] MEDS: LACTULOSE 10 G/15 ML UDC (PYXIS) PO SCH ×4 (10:18→21:30)
[2020-11-19] MEDS: FOLIC ACID 1 MG TABLET PO SCH (10:19)
[2020-11-19] MEDS: GABAPENTIN 300 MG CAPSULE PO SCH ×3 (10:19→17:00)
[2020-11-19] MEDS: PANTOPRAZOLE 40 MG TABLET.DR PO SCH (10:19)
[2020-11-19] MEDS: RIFAXIMIN 550 MG TABLET PO SCH ×2 (10:19→17:29)
[2020-11-19] MEDS: CALCIUM ACETATE 667 MG TABLET PO SCH ×2 (10:19→17:29)
[2020-11-19] MEDS: FERROUS SULFATE (325 MG) 325 MG/TAB TABLET PO SCH (10:20)
[2020-11-19] MEDS: VITAMIN B COMP W-C 1 TAB TABLET PO SCH (10:20)
[2020-11-19] MEDS: LEVETIRACETAM (250 MG) 250 MG TABLET PO SCH ×2 (10:25→21:30)
[2020-11-19] MEDS: OXYBUTYNIN CHLORIDE 5 MG TABLET PO SCH ×3 (10:28→17:00)
--- NOTE | 2020-11-19 10:30 | NUR ---
COMPLIANT WITH MEDS.
--- NOTE | 2020-11-19 11:30 | NUR ---
IN TO VISIT.
[2020-11-19] MEDS: PROSOURCE / PROSTAT (PYXIS) 30 ML UDC PO SCH ×2 (11:51→21:32)
[2020-11-19] MEDS: ONDANSETRON HCL/PF 4 MG/2 ML VIAL IVP PRN (15:03)
--- NOTE | 2020-11-19 15:03 | NUR ---
GIVEN ZOFRAN FOR NAUSEA.
--- NOTE | 2020-11-19 16:00 | NUR ---
SABRINA [place] AND FERMIN IN TO SEE PT.UA SENT TO LAB.
[2020-11-19 16:04] VITALS: BP 103/59
[2020-11-19 18:19] LABS: BILIRUBIN,URINE MODERATE (NEGATIVE); COLOR,URINE DARK YELLOW (YELLOW); LEUKOCYTE ESTERASE ,URINE NEGATIVE (NEGATIVE); NITRITE, URINE NEGATIVE (NEGATIVE); PH,URINE 5.5 (5.0-8.0); PROTEIN,URINE >=300 mg/dl (NEGATIVE); UGLUCOSE NEGATIVE (NEGATIVE); UROBILINOGEN,URINE 0.2 EU/dL (0.2)
--- NOTE | 2020-11-19 18:20 | NUR ---
HERE,CONSENT SIGNED FOR TOMORROW FOR CT.
[2020-11-19 18:27] LABS: BACTERIA,URINE 2+ /HPF (None Seen); MUCUS,URINE Few /LPF (None Seen); SQUAMOUS EPITHELIAL CELL,UR Few /HPF (None Seen); URINE AMORPHOUS URATE Moderate /HPF (None Seen)
[2020-11-19 20:00] VITALS: BP 116/60
--- NOTE | 2020-11-19 20:00 | NUR ---
Patient is awake, A&Ox4. In no signs of distress. Reports feeling tired. Patient is able to make needs known. Independent with self care ADLs. Denies pain or SOB. No signs of distress. at bedside concerned that patient needs 20guage IV for CT with contrast in AM. Charge nurse aware patient is a hard stick and nurses were only able to get a 24 gauge in day prior. would rather not have a midline for patient d/t risk of infection but patient agrees that if staff is unable to successfully establish IV access he is open to a midline. Will follow-up. Reminded patient that he should be NPO 4-[address] in the AM -verbalizes understanding.
[2020-11-19] MEDS: ATORVASTATIN 10 MG TABLET PO SCH (21:30)
[2020-11-19] MEDS: TAMSULOSIN 0.4 MG CAP.SR.24H PO SCH (21:30)
[2020-11-20] MEDS: IPRATROPIUM BROMIDE 14 GM INHALER (or 12.9 GM) IH SCH ×5 (01:35→20:22)
[2020-11-20] MEDS: ALBUTEROL SULFATE 8 GM HFA.AER.AD IH SCH ×4 (01:37→19:30)
--- NOTE | 2020-11-20 06:39 | NUR ---
Patient is awake, A&O4. Slept well throughout night. denies pain or SOB. Tolerating respiratory treatments well. Has been NPO since 0. No overnight events.
--- NOTE | 2020-11-20 07:20 | NUR ---
RN OPENING NOTES RECEIVED PATIENT ASLEEP IN BED, EASY TO AROUSE. ALERT AND ORIENTED X 4. NO SIGNS OR SYMPTOMS OF DISTRESS NOTED. NO COMPLAINTS OF PAIN AT THIS TIME. PATIENT IS ABLE TO MAKE NEEDS KNOWN. PATIENT BREATHING EVENLY AND NONLABORED TRACH COLLAR WITH COOL AEROSOL MASK ON 5 L OF OXYGEN SUPPLEMENTATION. IV ACCESS L HAND#22 PATENT AND INTACT. SAFETY MEASURES IN PLACE WITH BED AT LOWEST POSITION, LOCKED AND SIDE RAILS UP X 2. CALL LIGHT IS WITHIN REACH. WILL CONTINUE TO MONITOR
[2020-11-20 08:00] VITALS: BP 133/73
[2020-11-20] MEDS: PANTOPRAZOLE 40 MG TABLET.DR PO SCH (08:35)
[2020-11-20] MEDS ORDERED: IV NS 0.9% 250 ML IV ONE (08:38)
[2020-11-20] MEDS ORDERED: CT SWABBABLE VALVE TRANS SET 1 EA INFUS.SET MC ONE (08:38)
[2020-11-20] MEDS ORDERED: IOHEXOL-300 100 ML VIAL IV ONE (08:38)
[2020-11-20] MEDS: HEPARIN SODIUM, PORCINE 5000 UNITS/1 ML VIAL SQ SCH ×2 (09:00→21:13)
[2020-11-20] MEDS: CARVEDILOL 6.25 MG TABLET PO SCH ×2 (09:04→16:36)
[2020-11-20] MEDS: LISINOPRIL (20MG) 20 MG TABLET PO SCH (09:04)
[2020-11-20] MEDS: GABAPENTIN 300 MG CAPSULE PO SCH ×3 (09:04→16:35)
[2020-11-20] MEDS: VITAMIN B COMP W-C 1 TAB TABLET PO SCH (09:04)
[2020-11-20] MEDS: OXYBUTYNIN CHLORIDE 5 MG TABLET PO SCH ×3 (09:04→16:35)
[2020-11-20] MEDS: LEVETIRACETAM (250 MG) 250 MG TABLET PO SCH ×2 (09:05→21:07)
[2020-11-20] MEDS: CALCIUM ACETATE 667 MG TABLET PO SCH ×2 (09:05→16:35)
[2020-11-20] MEDS: FOLIC ACID 1 MG TABLET PO SCH (09:05)
[2020-11-20] MEDS: AMLODIPINE BESYLATE 10 MG TABLET PO SCH (09:05)
[2020-11-20] MEDS: RIFAXIMIN 550 MG TABLET PO SCH ×2 (09:05→16:35)
[2020-11-20] MEDS: LACTULOSE 10 G/15 ML UDC (PYXIS) PO SCH ×4 (09:05→21:08)
[2020-11-20] MEDS: PROSOURCE / PROSTAT (PYXIS) 30 ML UDC PO SCH ×2 (09:16→21:08)
[2020-11-20] MEDS: NEPRO VAN 237 ML CAN PO SCH (09:17)
--- NOTE | 2020-11-20 10:04 | NUR ---
RN NOTE PATIENT NEEDS BIGGER GAUGE FOR CT PROCEDURE. IV ON RIGHT FOREARM #20 PLACED, PATENT AND INTACT. WILL CONTINUE TO MONITOR
[2020-11-20 16:34] VITALS: BP 105/73
[2020-11-20] MEDS: ONDANSETRON HCL/PF 4 MG/2 ML VIAL IVP PRN (18:06)
--- NOTE | 2020-11-20 18:35 | NUR ---
MS RN CLOSING NOTES PATIENT AWAKE IN BED, E ALERT AND ORIENTED X 4. PATIENT BREATHING EVENLY AND NONLABORED TRACH COLLAR WITH COOL AEROSOL MASK ON 5 L OF OXYGEN SUPPLEMENTATION, NEEDED. NO SIGNS OR SYMPTOMS OF DISTRESS NOTED. NO COMPLAINTS OF PAIN AT THIS TIME. PATIENT IS ABLE TO MAKE NEEDS KNOWN. PATIENT BREATHING EVENLY AND NONLABORED TRACH COLLAR WITH COOL AEROSOL MASK ON 5 L OF OXYGEN SUPPLEMENTATION. IV ACCESS L HAND#22 PATENT AND INTACT. SAFETY MEASURES IN PLACE WITH BED AT LOWEST POSITION, LOCKED AND SIDE RAILS UP X 2. CALL LIGHT IS WITHIN REACH. WILL ENDORSE TO ONCOMING SHIFT
--- NOTE | 2020-11-20 19:30 | NUR ---
MS RN OPENING NOTES PATIENT IN ROOM WITH AT BEDSIDE, A/O X 4, PT ABLE TO MAKE NEEDS KNOWN. PT HAS A TRACH COLLAR WITH 5 LPM COOL AEROSOL NEEDED, NO DISTRESS OR SOB NOTED, BREATHING EVEN AND UNLABORED. NO REPORTS OF PAIN OR DISCOMFORT AT THIS TIME. IV ACCESS ON RIGHT FOREARM #20G, INTACT AND PATENT, SALINE LOCKED. RIGHT IJ HD CATH C/D/I. PATIENT STATES HE HAS NO NEEDS AT THIS TIME. SAFETY MEASURES IN PLACE: BED LOCKED IN LOWEST POSITION, SIDE RAILS UP X 2, CALL LIGHT WITHIN REACH. WILL CONTINUE TO MONITOR THROUGHOUT SHIFT.
[2020-11-20 20:13] VITALS: BP 107/61
[2020-11-20] MEDS: TAMSULOSIN 0.4 MG CAP.SR.24H PO SCH (21:07)
[2020-11-20] MEDS: ATORVASTATIN 10 MG TABLET PO SCH (21:07)
[2020-11-21] MEDS: IPRATROPIUM BROMIDE 14 GM INHALER (or 12.9 GM) IH SCH ×4 (01:04→20:04)
[2020-11-21] MEDS: ALBUTEROL SULFATE 8 GM HFA.AER.AD IH SCH ×4 (01:06→20:05)
[2020-11-21 06:22] LABS: BASOPHILS % (AUTO) 0.7 % (0.0-2.0); EOSINOPHILS % (AUTO) 2.5 % (0.0-6.0); HEMATOCRIT 25 % (39-51); HEMOGLOBIN 8.3 g/dL (13.5-17.5); LYMPHOCYTES % (AUTO) 15.6 % (20.0-44.0); MEAN CORPUSCULAR HGB CONC 33 g/dl (31.0-36.0); MEAN CORPUSCULAR VOLUME 88 fL (80-96); MONOCYTES # (AUTO) 0.9 K/uL (0.1-1.30); MONOCYTES % (AUTO) 12.8 % (2.0-12.0); NEUTROPHILS # (AUTO) 4.6 K/uL (1.8-8.9); NEUTROPHILS % (AUTO) 68.4 % (43.0-81.0); PLATELET COUNT (AUTO) 115 K/uL (150-450); RED BLOOD CELL COUNT(AUTO) 2.82 MIL/uL (4.5-6.0); WHITE BLOOD COUNT (AUTO) 6.7 K/uL (4.3-11.0)
[2020-11-21 06:41] LABS: ALBUMIN 1.7 g/dL (3.4-5.0); CALCIUM, SERUM 8.8 mg/dL (8.5-10.1); MAGNESIUM 2.5 mg/dL (1.8-2.4); PHOSPHORUS 5.1 mg/dL (2.5-4.9); POTASSIUM 5.5 mmol/L (3.5-5.1); TOTAL PROTEIN, SERUM 6.4 g/dL (6.4-8.2)
--- NOTE | 2020-11-21 07:00 | NUR ---
MS RN CLOSING NOTE PATIENT RESTING IN BED, A/O X 4, PT ABLE TO MAKE NEEDS KNOWN. PT HAS A TRACH COLLAR WITH 5 LPM COOL AEROSOL NEEDED, NO DISTRESS OR SOB NOTED, BREATHING EVEN AND UNLABORED. NO REPORTS OF PAIN OR DISCOMFORT AT THIS TIME. IV ACCESS ON RIGHT FOREARM #20G, INTACT AND PATENT, SALINE LOCKED. RIGHT IJ HD CATH C/D/I. PATIENT STATES HE HAS NO NEEDS AT THIS TIME. MEDICATIONS GIVEN ORDERED. PT NEEDS MET THROUGHOUT SHIFT. PT NPO SINCE MIDNIGHT FOR MRI WITH CONTRAST THIS AM. SAFETY MEASURES IN PLACE: BED LOCKED IN LOWEST POSITION, SIDE RAILS UP X 2, CALL LIGHT WITHIN REACH. WILL ENDORSE TO DAY SHIFT NURSE FOR CONTINUITY OF CARE
[2020-11-21 07:06] LABS: CREATININE 7.9 mg/dL (0.6-1.3)
[2020-11-21] MEDS: PANTOPRAZOLE 40 MG TABLET.DR PO SCH (07:30)
[2020-11-21 08:00] VITALS: BP 120/76
--- NOTE | 2020-11-21 08:09 | NUR ---
RN OPENING NOTES RECEIVED PATIENT AWAKE SITTING IN CHAIR. ALERT AND ORIENTED X 4. NO SIGNS OR SYMPTOMS OF DISTRESS NOTED. NO COMPLAINTS OF PAIN AT THIS TIME. PATIENT IS ABLE TO MAKE NEEDS KNOWN. PATIENT HAS A TRACH COLLAR WITH COOL AEROSOL MASK ON 5 L OF OXYGEN SUPPLEMENTATION. IV ACCESS RFOREARM #20 PATENT AND INTACT. SAFETY MEASURES IN PLACE WITH BED AT LOWEST POSITION AND SIDE RAILS UP X 2. CALL LIGHT IS WITHIN REACH. WILL CONTINUE TO MONITOR THROUGHOUT SHIFT.
--- NOTE | 2020-11-21 08:28 | NUR ---
RT Pt received awake and alert, pt is trached on cool aerosol with adequate SpO2. BVM and spare trach by bedside. No SOB or respiratory distress noted. Addendum: 11/21/20 at 0851 by BILLY MEJIA RT Amended: Links added.
[2020-11-21] MEDS: CALCIUM ACETATE 667 MG TABLET PO SCH ×2 (09:00→17:11)
[2020-11-21] MEDS: LACTULOSE 10 G/15 ML UDC (PYXIS) PO SCH ×4 (09:00→20:53)
[2020-11-21] MEDS: LISINOPRIL (20MG) 20 MG TABLET PO SCH (09:00)
[2020-11-21] MEDS: FOLIC ACID 1 MG TABLET PO SCH (09:00)
[2020-11-21] MEDS: OXYBUTYNIN CHLORIDE 5 MG TABLET PO SCH ×3 (09:00→17:10)
[2020-11-21] MEDS: RIFAXIMIN 550 MG TABLET PO SCH ×2 (09:00→17:10)
[2020-11-21] MEDS: NEPRO VAN 237 ML CAN PO SCH (09:00)
[2020-11-21] MEDS: VITAMIN B COMP W-C 1 TAB TABLET PO SCH (09:00)
[2020-11-21] MEDS: LEVETIRACETAM (250 MG) 250 MG TABLET PO SCH ×2 (09:00→20:52)
[2020-11-21] MEDS: GABAPENTIN 300 MG CAPSULE PO SCH ×3 (09:00→17:11)
[2020-11-21] MEDS: PROSOURCE / PROSTAT (PYXIS) 30 ML UDC PO SCH ×2 (09:00→20:47)
[2020-11-21] MEDS: CARVEDILOL 6.25 MG TABLET PO SCH ×2 (09:00→17:00)
[2020-11-21] MEDS: AMLODIPINE BESYLATE 10 MG TABLET PO SCH (09:00)
[2020-11-21] MEDS: HEPARIN SODIUM, PORCINE 5000 UNITS/1 ML VIAL SQ SCH ×2 (09:33→20:52)
[2020-11-21 16:00] VITALS: BP 110/70
--- NOTE | 2020-11-21 16:00 | NUR ---
MS RN NOTES MRI MACHINE CURRENTLY NOT WORKING. LEGAL TRANSCRIBER SAID LIKELY PART WILL COME IN IN 1-[address] HENRY MADE AWARE. DR. HENRY WANTS TO WAIT UNTIL PART IS FIXED. WILL ENDORSE TO NEXT SHIFT.
--- NOTE | 2020-11-21 19:00 | NUR ---
PATIENT IS SITTING IN A CHAIR NOTED HE IS wiyot. HE IS ALERT AND ORIENTATED x4 SMILING AND WATCHING A MOVIE ON HIS PHONE. TRACH CLEAN RESP EVEN AND UNLABORED
--- NOTE | 2020-11-21 19:45 | NUR ---
RN CLOSING NOTES PATIENT AWAKE, RESTING COMFORTABLY IN CHAIR WITH AT BEDSIDE. ALERT AND ORIENTED X 4. NO SIGNS OR SYMPTOMS OF DISTRESS NOTED. NO COMPLAINTS OF PAIN AT THIS TIME. PATIENT IS ABLE TO MAKE NEEDS KNOWN. ON 5 L OF OXYGEN SUPPLEMENTATION COOL AEROSOL. IV ACCESS RFOREARM#20 SL FLUSHING WELL, PATENT AND INTACT. SAFETY MEASURES IN PLACE WITH BED AT LOWEST POSITION AND SIDE RAILS UP X 2. CALL LIGHT IS WITHIN REACH. WILL ENDORSE CONTINUITY OF CARE TO NEXT NURSE.
[2020-11-21 20:00] VITALS: BP 101/62
[2020-11-21] MEDS: TAMSULOSIN 0.4 MG CAP.SR.24H PO SCH (21:12)
[2020-11-21] MEDS: ATORVASTATIN 10 MG TABLET PO SCH (21:12)
[2020-11-22] MEDS: IPRATROPIUM BROMIDE 14 GM INHALER (or 12.9 GM) IH SCH ×4 (01:37→19:30)
[2020-11-22] MEDS: ALBUTEROL SULFATE 8 GM HFA.AER.AD IH SCH ×4 (01:38→19:30)
--- NOTE | 2020-11-22 04:50 | NUR ---
SLEPT WELL AFTER GOING TO BED ABOUT 22:00. GETTING UP 1 X TO GO TO THE BATHROOM NPO EXCEPT MEDS ORDERED SCHEDULED FOR A MRI ABD BY MD HENRY POSSIBLE LIVER CA. NO SOB OR DIFFICULT BREATHING ASKING NOTHING FOR PAIN THIS 12 HOURS
[2020-11-22 07:08] LABS: ALBUMIN 1.8 g/dL (3.4-5.0); BILIRUBIN,TOTAL 6.1 mg/dL (0.2-1.0); CALCIUM, SERUM 8.9 mg/dL (8.5-10.1); MAGNESIUM 2.8 mg/dL (1.8-2.4); PHOSPHORUS 5.8 mg/dL (2.5-4.9); POTASSIUM 5.5 mmol/L (3.5-5.1); TOTAL PROTEIN, SERUM 6.5 g/dL (6.4-8.2)
--- NOTE | 2020-11-22 07:11 | NUR ---
MS RN OPENING NOTE RECEIVED PATIENT ON BED, ALERT AND ORIENTED X 4. ABLE TO MAKE NEEDS KNOWN. PATIENT WITH TRACHEOSTOMY TUBE WITH OXYGEN AT 5LPM TRACH MASK WHEN ASLEEP NOW ON ROOM AIR SATURATING AT 96%. WITH EQUAL AND UNLABORED BREATHING. WITH NO SIGNS OF RESPIRATORY DISTRESS. WITH RIGHT FORE ARM IV ACCESS ON SALINE LOCK AND RIGHT JUGULAR ANA CATHETER FOR HEMODIALYSIS. MAINTAINED ON MODERATE TO HIGH BACK REST. PATIENT KEPT ON NPO FOR POSSIBLE MRI TODAY. CALL LIGHT WITHIN REACH AT ALL TIMES. SAFETY PRECAUTIONS MAINTAINED WITH BED LOCKED AND AT LOWEST POSITION. WILL CONTINUE TO MONITOR.
[2020-11-22 07:12] LABS: CREATININE 9.8 mg/dL (0.6-1.3)
[2020-11-22 07:13] LABS: MEAN CORPUSCULAR HGB CONC 33 g/dl (31.0-36.0)
[2020-11-22 07:20] LABS: BASOPHILS % (AUTO) 0.6 % (0.0-2.0); EOSINOPHILS % (AUTO) 1.8 % (0.0-6.0); HEMATOCRIT 26 % (39-51); HEMOGLOBIN 8.5 g/dL (13.5-17.5); LYMPHOCYTES # (AUTO) 1.6 K/uL (0.8-4.8); LYMPHOCYTES % (AUTO) 22.5 % (20.0-44.0); MEAN CORPUSCULAR VOLUME 89 fL (80-96); MONOCYTES # (AUTO) 0.9 K/uL (0.1-1.30); MONOCYTES % (AUTO) 12.4 % (2.0-12.0); NEUTROPHILS # (AUTO) 4.4 K/uL (1.8-8.9); NEUTROPHILS % (AUTO) 62.7 % (43.0-81.0); PLATELET COUNT (AUTO) 131 K/uL (150-450); RED BLOOD CELL COUNT(AUTO) 2.91 MIL/uL (4.5-6.0)
[2020-11-22] MEDS: NEPRO VAN 237 ML CAN PO SCH (09:00)
[2020-11-22] MEDS: PROSOURCE / PROSTAT (PYXIS) 30 ML UDC PO SCH ×2 (09:00→21:22)
[2020-11-22] MEDS: CALCIUM ACETATE 667 MG TABLET PO SCH ×2 (09:27→18:03)
[2020-11-22] MEDS: LACTULOSE 10 G/15 ML UDC (PYXIS) PO SCH ×4 (09:27→21:02)
[2020-11-22] MEDS: LEVETIRACETAM (250 MG) 250 MG TABLET PO SCH ×2 (09:27→21:02)
[2020-11-22] MEDS: FOLIC ACID 1 MG TABLET PO SCH (09:27)
[2020-11-22] MEDS: RIFAXIMIN 550 MG TABLET PO SCH ×2 (09:27→18:04)
[2020-11-22] MEDS: VITAMIN B COMP W-C 1 TAB TABLET PO SCH (09:27)
[2020-11-22] MEDS: LISINOPRIL (20MG) 20 MG TABLET PO SCH (09:28)
[2020-11-22] MEDS: OXYBUTYNIN CHLORIDE 5 MG TABLET PO SCH ×3 (09:28→18:04)
[2020-11-22] MEDS: GABAPENTIN 300 MG CAPSULE PO SCH ×3 (09:28→18:04)
[2020-11-22] MEDS: PANTOPRAZOLE 40 MG TABLET.DR PO SCH (09:29)
[2020-11-22] MEDS: AMLODIPINE BESYLATE 10 MG TABLET PO SCH (09:29)
[2020-11-22] MEDS: CARVEDILOL 6.25 MG TABLET PO SCH ×2 (09:32→18:04)
[2020-11-22] MEDS: HEPARIN SODIUM, PORCINE 5000 UNITS/1 ML VIAL SQ SCH ×2 (09:46→21:44)
--- NOTE | 2020-11-22 10:25 | NUR ---
MS RN NOTE PATIENT PICKED UP FOR MRI. IN STABLE CONDITION.
[2020-11-22 10:38] LABS: LYMPHOCYTES % (MANUAL) 21 % (16-48); MONOCYTES % (MANUAL) 9 % (0-11.0); NEUTROPHILS % (MANUAL) 70 (42-76)
[2020-11-22] MEDS: MORPHINE SULFATE INJ 2 MG/ML DISP.SYRIN IV PRN (12:08)
[2020-11-22] MEDS: ONDANSETRON HCL/PF 4 MG/2 ML VIAL IVP PRN (12:08)
--- NOTE | 2020-11-22 12:10 | NUR ---
MS RN NOTE PATIENT BACK FROM MRI ALERT AND ORIENTED WITH SOME DISCOMFORT. TRANSFERRED TO BED AND COMFORT MEASURES PROVIDED.
[2020-11-22] MEDS ORDERED: GADOTERATE MEGLUMINE 10 MMOL/20 ML VIAL IV ONE (15:26)
--- NOTE | 2020-11-22 19:00 | NUR ---
MS RN CLOSING NOTE RECEIVED PATIENT ON BED, ALERT AND ORIENTED X 4. ABLE TO MAKE NEEDS KNOWN. PATIENT WITH TRACHEOSTOMY TUBE WITH OXYGEN AT 5LPM TRACH MASK WHEN ASLEEP NOW ON ROOM AIR SATURATING AT 96%. WITH EQUAL AND UNLABORED BREATHING. WITH NO SIGNS OF RESPIRATORY DISTRESS. WITH RIGHT FORE ARM IV ACCESS ON SALINE LOCK AND RIGHT JUGULAR ANA CATHETER FOR HEMODIALYSIS. MAINTAINED ON MODERATE TO HIGH BACK REST. PATIENT KEPT ON NPO FOR POSSIBLE MRI TODAY. CALL LIGHT WITHIN REACH AT ALL TIMES. SAFETY PRECAUTIONS MAINTAINED WITH BED LOCKED AND AT LOWEST POSITION. WILL ENDORSE FOR CONTINUITY OF CARE.
[2020-11-22 20:00] VITALS: BP 96/59
--- NOTE | 2020-11-22 20:00 | NUR ---
RN NOTES RECEIVED PATIENT IN ROOM, UP TO CHAIR, ROOM AIR, NO DISTRESS, TRACH CUFFLESS, ABLE TO TALK, AMBULATES, NO COMPLAIN OF PAIN, AT THE BEDSIDE.
[2020-11-22] MEDS ORDERED: ALBUTEROL FS 2.5 MG/3 ML VIAL.NEB IH PRN (20:30)
[2020-11-22] MEDS: TAMSULOSIN 0.4 MG CAP.SR.24H PO SCH (21:02)
[2020-11-22] MEDS: ATORVASTATIN 10 MG TABLET PO SCH (21:02)
--- NOTE | 2020-11-22 21:49 | NUR ---
RN NOTES REPORTED TO REED POLISHER NACHO K 5.5, FOR HD TONIGHT, NO ORDERS, ALSO VERIFIED WITH REED POLISHER IF OK TO GIVE HEPARIN, HGB 8.5 AND PLATELET 131, , AN RN WANTS TO MAKE SURE.
[2020-11-23] MEDS: IPRATROPIUM NEB FS 0.5 MG/2.5 ML AMPUL.NEB IH SCH ×3 (01:33→13:39)
[2020-11-23] MEDS: ALBUTEROL FS 2.5 MG/3 ML VIAL.NEB IH SCH ×3 (01:33→13:39)
--- NOTE | 2020-11-23 07:00 | NUR ---
MS RN OPENING NOTE RECEIVED PATIENT ON BED ASLEEP BUT EASILY AROUSABLE, ALERT AND ORIENTED X 4. ABLE TO MAKE NEEDS KNOWN. PATIENT WITH TRACHEOSTOMY TUBE WITH OXYGEN AT 5LPM TRACH MASK WHEN ASLEEP BUT USALLY ON ROOM AIR CURRENTLY SATURATING AT 97%. WITH EQUAL AND UNLABORED BREATHING. WITH NO SIGNS OF RESPIRATORY DISTRESS. WITH RIGHT FORE ARM IV ACCESS ON SALINE LOCK AND RIGHT JUGULAR ANA CATHETER FOR HEMODIALYSIS. MAINTAINED ON MODERATE TO HIGH BACK REST. CALL LIGHT WITHIN REACH AT ALL TIMES. SAFETY PRECAUTIONS MAINTAINED WITH BED LOCKED AND AT LOWEST POSITION. WILL CONTINUE TO MONITOR.
--- NOTE | 2020-11-23 07:07 | NUR ---
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
[2020-11-23 08:00] VITALS: BP 116/67
[2020-11-23] MEDS: HEPARIN SODIUM, PORCINE 5000 UNITS/1 ML VIAL SQ SCH (09:00)
[2020-11-23] MEDS: CARVEDILOL 6.25 MG TABLET PO SCH (09:00)
[2020-11-23] MEDS: AMLODIPINE BESYLATE 10 MG TABLET PO SCH (09:00)
[2020-11-23] MEDS: LISINOPRIL (20MG) 20 MG TABLET PO SCH (09:00)
[2020-11-23] MEDS: LACTULOSE 10 G/15 ML UDC (PYXIS) PO SCH ×2 (09:00→13:00)
[2020-11-23] MEDS: PANTOPRAZOLE 40 MG TABLET.DR PO SCH (09:26)
[2020-11-23] MEDS: GABAPENTIN 300 MG CAPSULE PO SCH ×2 (09:27→14:13)
[2020-11-23] MEDS: FOLIC ACID 1 MG TABLET PO SCH (09:27)
[2020-11-23] MEDS: VITAMIN B COMP W-C 1 TAB TABLET PO SCH (09:27)
[2020-11-23] MEDS: LEVETIRACETAM (250 MG) 250 MG TABLET PO SCH (09:27)
[2020-11-23] MEDS: RIFAXIMIN 550 MG TABLET PO SCH (09:27)
[2020-11-23] MEDS: CALCIUM ACETATE 667 MG TABLET PO SCH (09:27)
[2020-11-23] MEDS: PROSOURCE / PROSTAT (PYXIS) 30 ML UDC PO SCH (09:27)
[2020-11-23] MEDS: OXYBUTYNIN CHLORIDE 5 MG TABLET PO SCH ×2 (09:27→14:13)
[2020-11-23] MEDS: NEPRO VAN 237 ML CAN PO SCH (09:28)
--- NOTE | 2020-11-23 11:30 | NUR ---
MS RN NOTE PATIENT STARTED ON HD ORDERED. WILL CONTINUE TO MONITOR PATIENT.
--- NOTE | 2020-11-23 14:10 | NUR ---
MS RN NOTE PATIENT FINISHED HD, TOLERATED WELL AND WAS ABLE TO PULL OUT 1 LITER OF FLUID. PATIETN SEEN BY DR. HERNANDEZ WITH ORDER FOR DISCHARGE. PATIENT AWARE BUT AWAITING JULY'S DECISION REGARDING TRANSPORTATION ARRANGEMENT.
--- NOTE | 2020-11-23 15:30 | NUR ---
MS RN NOTE JEWELS SPOKE WITH WELLNESS NURSE RN REGARDING DISCHARGE TRANSPORTATION ARRANGEMENTS. WILL DRIVE PATIENT HOME. HEALTH TEACHING DONE AND BOTH PATIETN AND VERBALIZED UNDERSTANDING. JEWELS IS AN RN. DISCHARGE PAPERS AND INVENTORY LIST SIGNED AND ATTACHED TO CHART. IV ACCESS REMOVED AND COVERED WITH DRY DRESSING, TOLERATED WELL. NOT IN DISTRESS. WILL CONTINUE TO MONITOR PATIENT.
[2020-11-23 16:00] VITALS: BP 107/63
--- NOTE | 2020-11-23 16:50 | NUR ---
MS RN NOTE PATIENT ACCOMPANIED TO CAR VIA WHEELCHAIR WITH . PATIENT DISCHARGED ORDERED IN STABLE CONDITION. ENDORSED ACCORDINGLY.
== END 2020-11-23 17:03 | DRG 280 ==
LOC: ER 11:49 → TRANSITION 20:48 → TELE1 23:06 → MEDSG1 11-12 21:18 → MED 11-14 17:18
PROVIDERS: ADMIT Internal Medicine
PROC: 5A1D70Z Performance of Urinary Filtration, Intermittent, Less than 6 Hours Per Day (ICD-10-PCS; 2020-11-11)
PROC: 0W993ZZ Drainage of Right Pleural Cavity, Percutaneous Approach (ICD-10-PCS; principal; 2020-11-13)
DX: K70.30 Alcoholic cirrhosis of liver without ascites (principal); I81 Portal vein thrombosis; J96.10 Chronic respiratory failure, unspecified whether with hypoxia or hypercapnia; J91.8 Pleural effusion in other conditions classified elsewhere; C22.0 Liver cell carcinoma; Z93.0 Tracheostomy status; K76.6 Portal hypertension; D68.4 Acquired coagulation factor deficiency; K72.00 Acute and subacute hepatic failure without coma; D69.6 Thrombocytopenia, unspecified; E87.2 Acidosis; E87.1 Hypo-osmolality and hyponatremia; I13.11 Hypertensive heart and chronic kidney disease without heart failure, with stage 5 chronic kidney disease, or end stage renal disease; J38.6 Stenosis of larynx; N18.6 End stage renal disease; E87.8 Other disorders of electrolyte and fluid balance, not elsewhere classified; Z85.118 Personal history of other malignant neoplasm of bronchus and lung; Z86.73 Personal history of transient ischemic attack (TIA), and cerebral infarction without residual deficits; Z99.2 Dependence on renal dialysis; E88.09 Other disorders of plasma-protein metabolism, not elsewhere classified; D63.8 Anemia in other chronic diseases classified elsewhere; Z68.28 Body mass index [BMI] 28.0-28.9, adult; Z20.822 Contact with and (suspected) exposure to COVID-19; Z79.51 Long term (current) use of inhaled steroids; Z79.899 Other long term (current) drug therapy; F41.9 Anxiety disorder, unspecified; E87.5 Hyperkalemia; K80.20 Calculus of gallbladder without cholecystitis without obstruction; J98.11 Atelectasis; K82.8 Other specified diseases of gallbladder; N26.1 Atrophy of kidney (terminal); G40.909 Epilepsy, unspecified, not intractable, without status epilepticus; D68.9 Coagulation defect, unspecified; E83.52 Hypercalcemia; J44.9 Chronic obstructive pulmonary disease, unspecified; K42.9 Umbilical hernia without obstruction or gangrene; K59.00 Constipation, unspecified
CPT/HCPCS: 31720; 36415; 70551-TC; 71045-TC; 71250-TC; 71270-TC; 74178; 74181-TC; 74183-TC; 76705-TC; 78226; 80048-TC; 80053-TC; 80076-TC; 81001; 82105; 82140-TC; 82378; 82728-TC; 83540-TC; 83605-TC; 83690-TC; 83735-TC; 83970; 84100-TC; 84132-TC; 84439-TC; 84443-TC; 84484-TC; 85025-TC; 85610-TC; 85730-TC; 86301; 86706; 86803; 87040-TC; 87081-TC; 87086-TC; 87340; 90935-TC; 93976-TC; 94640; 94640-TC; 94664; 94760-TC; 94799-TC; A4216; A4623; A7526; A9537; A9575; C9803; G0378; J1644; J1650; J1815; J2270; J2405; J2543; J7050; J7060; P9047; Q9967; U0003

== ENCOUNTER 2020-11-27 18:35 | Emergency (ER) | payer MEDICAID ==
[~2020-11-27] VITALS: Ht 172.7 cm; Wt 74.8 kg
[~2020-11-27 18:35] MED LIST changes: +ACET-868 PO; +AMIN30LI27 PO; +BISA5TAB10 PO; +CLON0.1T PO; +DIPH25CA51 PO; +HYDR-3972 PO; +HYDR-500 PO; +HYDR100T27 PO; +LACT10SO3 PO; -LACT10SO58 PO; +LORA-259 PO; +NUT.237L67 PO; +ONDA4TAB5 PO; +POLY17PO4 PO; -TRAM50TA2 PO; +VITA1TAB56 PO
--- NOTE | 2020-11-27 19:06 | NUR ---
rena, came in due to dislodged trach. On room air, breathing evenly. Alert and oriented x 4, connected to the monitor and pulse ox. Kept comfortable, will continue to monitor accordingly.
--- NOTE | 2020-11-27 19:34 | NUR ---
RT AT BEDSIDE FOR TRACH PLACEMENT
--- NOTE | 2020-11-27 19:44 | NUR ---
RT NOTE LATE ENTRY: Pt found decannulated with trach stoma still intact, pt is awake, alert, and able to follow commands. Upon placing Shiley XLT 6 cuffed proximal, stoma unable to fit appropriate trach size. Pt placed on Portex 6 cuffed Per md orders. Pt sx'd for thick mod amt of bloody secretions. Minimal bleeding around stoma site. Pt complained of continuous coughing and pain. Pt trached changed to Shiley 6 XLT CUFFLESS Proximal Per md orders. Trach change successful and pt shows no signs of resp distress or sob with MD bedside. Minimal bleeding noted. 02 saturation 96%. Will continue to monitor closely.
--- NOTE | 2020-11-27 20:19 | NUR ---
AT BEDSIDE TO TAKE THE PATIENT HOME.
--- NOTE | 2020-11-27 20:19 | NUR ---
Patient discharged to home in stable condition. Written and verbal after care instructions given. Patient verbalizes understanding of instruction.
[2020-11-27 20:21] VITALS: BP 115/71
== END 2020-11-27 21:39 | disposition home or self-care (01) ==
LOC: ER 21:38
DX: J95.03 Malfunction of tracheostomy stoma (principal); I10 Essential (primary) hypertension; J44.9 Chronic obstructive pulmonary disease, unspecified; Z88.1 Allergy status to other antibiotic agents; Z86.73 Personal history of transient ischemic attack (TIA), and cerebral infarction without residual deficits; Z79.899 Other long term (current) drug therapy

== ENCOUNTER 2020-12-06 11:55 | Inpatient (IN) | payer MEDICAID ==
[2020-12-06] VITALS: BP 86/47
[~2020-12-06] VITALS: Ht 167.6 cm; Wt 80.3 kg
--- NOTE | 2020-12-06 12:03 | NUR ---
TO ER BED 3, C/O RA102 From B/C "Abdominal Pain was seen last week for same NOT better, AWAITING MD PATHAK
[2020-12-06] MEDS ORDERED: ONDANSETRON HCL/PF 4 MG/2 ML VIAL ONE (13:00)
[2020-12-06] MEDS ORDERED: ONDANSETRON HCL/PF 4 MG/2 ML VIAL IVP ONE (13:00)
[2020-12-06] MEDS ORDERED: MORPHINE SULFATE INJ 2 MG/ML DISP.SYRIN IV ONE (13:00)
[2020-12-06] MEDS ORDERED: MORPHINE SULFATE INJ 4 MG/ML DISP.SYRIN ONE (13:01)
[2020-12-06] MEDS ORDERED: DEXTROSE 50%-WATER 50 ML DISP.SYRIN ONE ×2 (13:28→15:15)
--- NOTE | 2020-12-06 13:49 | NUR ---
TAKEN TO CT
[2020-12-06] MEDS ORDERED: DEXTROSE 50%-WATER 50 ML DISP.SYRIN IVP ONE (14:00)
--- NOTE | 2020-12-06 14:11 | NUR ---
BACK FROM CT
--- NOTE | 2020-12-06 14:30 | NUR ---
COVID ANTIGEN SWAB DONE AND SENT TO LAB
[2020-12-06 14:38] LABS: BASOPHILS # (AUTO) 0.1 K/uL (0.0-0.2); HEMOGLOBIN 9.3 g/dL (13.5-17.5)
[2020-12-06 14:43] LABS: BASOPHILS % (AUTO) 1.8 % (0.0-2.0); EOSINOPHILS % (AUTO) 0.5 % (0.0-6.0); HEMATOCRIT 30 % (39-51); LYMPHOCYTES # (AUTO) 0.8 K/uL (0.8-4.8); LYMPHOCYTES % (AUTO) 14.9 % (20.0-44.0); MEAN CORPUSCULAR HGB CONC 31 g/dl (31.0-36.0); MEAN CORPUSCULAR VOLUME 96 fL (80-96); MONOCYTES # (AUTO) 0.5 K/uL (0.1-1.30); MONOCYTES % (AUTO) 10.2 % (2.0-12.0); NEUTROPHILS # (AUTO) 3.7 K/uL (1.8-8.9); NEUTROPHILS % (AUTO) 72.6 % (43.0-81.0)
[2020-12-06 14:53] LABS: ALBUMIN 1.5 g/dL (3.4-5.0); BILIRUBIN,DIRECT 5.6 mg/dL (0.0-0.2); BILIRUBIN,TOTAL 6.3 mg/dL (0.2-1.0); CALCIUM, SERUM 7.3 mg/dL (8.5-10.1); TOTAL PROTEIN, SERUM 6.2 g/dL (6.4-8.2)
[2020-12-06 14:57] LABS: POTASSIUM 6.7 mmol/L (3.5-5.1)
[2020-12-06 14:58] LABS: CREATININE 11.1 mg/dL (0.6-1.3)
[2020-12-06] MEDS ORDERED: SODIUM BICARBONATE SYR 50 MEQ/50 ML DISP.SYRIN IV ONE (15:00)
[2020-12-06] MEDS ORDERED: ALBUTEROL FS 2.5 MG/3 ML VIAL.NEB NEB ONE (15:00)
[2020-12-06] MEDS ORDERED: CALCIUM CHLORIDE 1,000 MG/10 ML DISP.SYRIN IV ONE (15:00)
[2020-12-06] MEDS ORDERED: DEXTROSE 50%-WATER 50 ML DISP.SYRIN IV ONE (15:00)
[2020-12-06] MEDS ORDERED: INSULIN REGULAR, HUMAN 100 UNIT/ML 10 ML VIAL IV ONE (15:00)
[2020-12-06] MEDS ORDERED: SODIUM BICARBONATE SYR 50 MEQ/50 ML DISP.SYRIN ONE (15:15)
[2020-12-06] MEDS ORDERED: CALCIUM CHLORIDE 1,000 MG/10 ML DISP.SYRIN ONE (15:15)
[2020-12-06] MEDS ORDERED: INSULIN REGULAR, HUMAN 100 UNIT/ML 10 ML VIAL ONE (15:16)
[2020-12-06] MEDS ORDERED: ALBUTEROL FS 2.5 MG/3 ML VIAL.NEB ONE (15:18)
[2020-12-06 15:55] LABS: BAND % (MANUAL) 2 % (0.0-5.0); EOSINOPHILS % (MANUAL) 2 % (0-4); LYMPHOCYTES % (MANUAL) 10 % (16-48); MONOCYTES % (MANUAL) 5 % (0-11.0); NEUTROPHILS % (MANUAL) 81 (42-76)
[2020-12-06 15:57] LABS: PLATELET COUNT (AUTO) 104 K/uL (150-450)
[2020-12-06] MEDS ORDERED: Z GUARD REMEDY 2 OZ OINT TP PRN (16:30)
[2020-12-06] MEDS ORDERED: DEXTROSE 50%-WATER 50 ML DISP.SYRIN IV PRN (16:30)
--- NOTE | 2020-12-06 16:51 | NUR ---
TAFFY PULLER AT BEDSIDE
--- NOTE | 2020-12-06 16:58 | NUR ---
US AT BEDSIDE
[2020-12-06] MEDS: BLOOD SUGAR DIAGNOSTIC 1 EACH STRIP IN SCH ×2 (17:22→21:40)
--- NOTE | 2020-12-06 17:29 | NUR ---
BLOOD SUGAR 90, DR MENJIVAR AWARE
--- NOTE | 2020-12-06 17:46 | NUR ---
POTASSIUM 6.2, ADMITTING MD GOODE AWARE
--- NOTE | 2020-12-06 17:48 | NUR ---
DR GOODE ARRANGING FOR DIALYSIS
[2020-12-06] MEDS: SODIUM POLYSTYRENE SULF. PWD 15 GM UDC PO SCH (18:28)
--- NOTE | 2020-12-06 18:30 | NUR ---
RN NOTES PATIENT TRANSFERRED TO ROOM 115-1 VIA RNEY, ACCOMPANIED BY 2 ER NURSES.
--- NOTE | 2020-12-06 19:00 | NUR ---
RN NOTE REPORT RECEIVED FROM STEFANI EUGENE, PATIENT IN BED, AO X 4, IN NO S/SX OF ACUTE DISTRESS AT THIS TIME. BREATHING EVEN AND UNLABORED, ON T-PIECE TO COOL AEROSOL WITH SETTINGS PRESCRIBED, 5LPM AT 28% FIO2, SATURATION AT 97%, SR ON THE MONITOR, HR IS 77. NOTED IV SITE AT R ARM 20G, PATENT AND FLUSHING WELL, AND PERMA CATH AT R CHEST WALL, NO S/S OF INFECTION OR INFILTRATION. SAFETY MEASURES IMPLEMENTED. PATIENT BED ALARM IS ON. HEAD OF BED ELEVATED. BED IS LOCKED, IN LOWEST POSITION AND SIDE RAILS UP. CALL LIGHT WITHIN REACH OF THE PATIENT. WILL CONTINUE TO MONITOR AND REASSESS FOR ANY CHANGES.
[2020-12-06 20:00] VITALS: BP_SYST 84; BP_SYST 86; BP_DIAS 44; BP_DIAS 47
--- NOTE | 2020-12-06 20:30 | NUR ---
RN NOTE NOTED BP 84/47, REPEATED AND RESULTED 89/52. PT AT BEDSIDE ASKING FOR MIDODRINE. DR Hazel WAS NOTIFIED, STATED MIDODRINE IS ALMOST CONTRAINDICATED FOR HD PATIENTS, PLS REFER TO DEMURRAGE CLERK ON CASE. TELEPHONE CALL TO DR CHRISTENSEN'S EXCHANGE AT [phone], AND [phone], SPOKE TO BRICK AND BLOCKER AID LABOR AND WAS TOLD SHE WILL PAGE DR CHRISTENSEN. PROVIDED CALL BACK NUMBER. AWAITING CALL BACK.
[2020-12-06] MEDS: HEPARIN SODIUM, PORCINE 5000 UNITS/1 ML VIAL SQ SCH (21:35)
--- NOTE | 2020-12-06 22:00 | NUR ---
RN NOTE NO CALL BACK RECEIVED FROM DR GÓMEZ CHRISTENSEN. HD RN AT BEDSIDE UNABLE TO START HD SBP AT 80'S. HD RN NOTIFIED DR CHRISTENSEN DIRECTLY, ORDER WAS RECEIVED BY HD NURSE ZAIN RN FOR ALBUMIN 25% WITH HD. ANTIQUE DEALER AWARE. DIRECTOR [facility] WAS NOTIFIED.
[2020-12-06] MEDS ORDERED: ALBUMIN 25% 25 GM in PREMIX 1 EA IV STA (23:43)
[2020-12-07] VITALS: BP 84/44
--- NOTE | 2020-12-07 | NUR ---
RN NOTE NOTED SCHEDULED DOSE OF KAYEXALATE 30 GM FOR 0000, DR Hazel WAS NOTIFIED, ADVISED PT WAS GIVEN KAYEXALATE 30 GM AT ER, AND HAS ON GOING HD. ORDERS RECEIVED TO HOLD DOSE AND CHECK AM LABS. MATRIX DRIER TENDER AWARE.
[2020-12-07] MEDS ORDERED: ALBUMIN 25% 100 ML IV ONE (00:04)
[2020-12-07] MEDS: SODIUM POLYSTYRENE SULF. PWD 15 GM UDC PO SCH ×2 (00:07)
[2020-12-07] MEDS: BLOOD SUGAR DIAGNOSTIC 1 EACH STRIP IN SCH ×6 (01:41→20:41)
--- NOTE | 2020-12-07 02:30 | NUR ---
RN NOTE END OF HD, 0 LITERS OUT PER HD NURSE ZAIN EUGENE. ONLY CLEANSING WAS DONE.
[2020-12-07 04:00] VITALS: BP 98/56
--- NOTE | 2020-12-07 05:00 | NUR ---
RN NOTE NOTED ACCUCHECK AT 0500 RESULTED=66 MG/DL. ENCOURAGED PATIENT TO CONSUME APPLE JUICE. EXPLAINED POSSIBLE HYPOGLYCEMIA ON NEXT ACCUCHECK. WILL CONTINUE TO MONITOR.
--- NOTE | 2020-12-07 07:30 | NUR ---
CLINICAL NURSE OCCUPATIONAL MEDICINE AM NOTE PT IN BED, AO X 4, CITIZEN OF [place] SPEAKING, NO S/SX OF ACUTE DISTRESS AT THIS TIME. BREATHING EVEN AND UNLABORED, ON SHILEY XLT T-PIECE TO COOL AEROSOL WITH SETTINGS PRESCRIBED, 5LPM AT 28% FIO2, SATURATION AT 92%, SR ON THE MONITOR, HR IS 88. NOTED IV SITE AT R ARM 20G, PATENT AND FLUSHING WELL, AND PERMA CATH AT R CHEST WALL, NO S/S OF INFECTION OR INFILTRATION. RENAL STANDARD DIET. SAFETY MEASURES IMPLEMENTED. PATIENT BED ALARM IS ON. HEAD OF BED ELEVATED. BED IS LOCKED, IN LOWEST POSITION AND SIDE RAILS UP. CALL LIGHT WITHIN REACH OF THE PATIENT. WILL CONTINUE TO MONITOR AND REASSESS FOR ANY CHANGES.
[2020-12-07 07:51] LABS: BASOPHILS % (AUTO) 1.5 % (0.0-2.0); EOSINOPHILS % (AUTO) 2.1 % (0.0-6.0); HEMATOCRIT 27 % (39-51); HEMOGLOBIN 8.9 g/dL (13.5-17.5); LYMPHOCYTES # (AUTO) 0.4 K/uL (0.8-4.8); LYMPHOCYTES % (AUTO) 11.4 % (20.0-44.0); MEAN CORPUSCULAR HGB CONC 33 g/dl (31.0-36.0); MEAN CORPUSCULAR VOLUME 94 fL (80-96); MONOCYTES # (AUTO) 0.4 K/uL (0.1-1.30); MONOCYTES % (AUTO) 11.3 % (2.0-12.0); NEUTROPHILS # (AUTO) 2.3 K/uL (1.8-8.9); NEUTROPHILS % (AUTO) 73.7 % (43.0-81.0); PLATELET COUNT (AUTO) 89 K/uL (150-450); RED BLOOD CELL COUNT(AUTO) 2.91 MIL/uL (4.5-6.0); WHITE BLOOD COUNT (AUTO) 3.1 K/uL (4.3-11.0)
[2020-12-07 08:00] VITALS: BP 83/46
[2020-12-07 08:23] LABS: CALCIUM, SERUM 7.3 mg/dL (8.5-10.1); MAGNESIUM 2.6 mg/dL (1.8-2.4); PHOSPHORUS 7.4 mg/dL (2.5-4.9); POTASSIUM 4.1 mmol/L (3.5-5.1)
[2020-12-07 08:27] LABS: CREATININE 7.7 mg/dL (0.6-1.3)
[2020-12-07] MEDS: HEPARIN SODIUM, PORCINE 5000 UNITS/1 ML VIAL SQ SCH ×2 (09:04→20:40)
--- NOTE | 2020-12-07 09:30 | NUR ---
DIRECTOR OF SALES MARKETING NOTES DUE MEDS GIVEN
--- NOTE | 2020-12-07 10:43 | NUR ---
RN NOTES PATIENT WALKING AROUND THE ROOM, SUDDENLY C/O OF CHEST PAIN, SOB, PATIENT PLACED BACK ON OXYGEN AT 10L SIMPLE MASK OVERTRACH. O2 SAT 92%. NOTIFIED, NACHO GOODE, RESP THERAPIST AT BEDSIDE. STAT EKG AND TROPONIN ORDERED.
[2020-12-07 12:00] VITALS: BP 78/48
[2020-12-07] MEDS: IV D5/ 0.9% NACL 1,000 ML IV PRN (13:15)
--- NOTE | 2020-12-07 13:30 | NUR ---
13:15 PER RN TOBIAS PT IS GOING TO HAVE DIALYSIS. UPDATED LABS NOT AVAILABLE. RN WILL ORDER LABS TODAY. SINCE DIALYSIS WILL TAKE 3-4 HOURS AND LABS ARE NOT AVAILABLE, THORACENTESIS CAN NOT BE DONE LATE IN THE AFTERNOON DUE TO RISK OF PNEUMOTHORAX. THE PROCEDURE WILL BE DONE TOMORROW.
--- NOTE | 2020-12-07 13:44 | NUR ---
RN NOTES PATIENT STARTED ON DIALYSIS. BLOOD SUGAR CHECK AT 44 MG/DL. WILL GIVE D50 WATER. ALSO PER LOC PICHARDO, THEY WONT BE ABLE TO DO US GUIDED THORACENTESIS BEYOND 1500. WILL DO IT TOMORROW INSTEAD. NACHO GOODE NP NOTIFIED.
[2020-12-07] MEDS: ALBUMIN 25% 25 GM in PREMIX 1 EA IV SCH (14:01)
[2020-12-07] MEDS: HYDROCODONE/APAP 5/325MG TABLET PO PRN ×2 (14:10→20:54)
--- NOTE | 2020-12-07 14:17 | NUR ---
RN NOTES BLOOD SUGAR RECHECKED - 127 MG/DL.
[2020-12-07 16:00] VITALS: BP 98/55
[2020-12-07] MEDS: NEPRO VAN 237 ML CAN PO SCH (17:07)
--- NOTE | 2020-12-07 18:02 | NUR ---
SENIOR CLERK NOTES COORDINATED WITH HEIDI NANCE NURSE FOR THIS PATIENT RE CT OF ABDOMEN/PELVIS WITH CONTRAST PER DR. MARYANN HENRY. BUT NEEDS HD POST CT SCAN. PER GOYO, OK TO HAVE CT SCAN TOMORROW AND WILL DO HD AFTERWARDS.
--- NOTE | 2020-12-07 19:30 | NUR ---
RN NOTES ALL NEEDS MET AT THIS TIME. HD DONE EARLIER CLEANSING ONLY. AT BEDSIDE. FOR USG THORACENTESIS TOMORROW CONSENT SIGNED. FOR CT ABD/PELVIS WITH CONTRAST, CONSENT SIGNED, COORDINATED WITH [facility] HD NURSE. ENDORSED TO NEXT SHIFT FOR ERICA.
--- NOTE | 2020-12-07 19:57 | NUR ---
FUR STORAGE CLERK OPENING NOTES Patient is awake A&Ox4 at this time. at bedside. IV intact and patent with no signs of infiltration. No signs of distress. Only complains of tolerable 2/10 pain to old IV site, arm elevated. Will continue to monitor closely.
[2020-12-07 20:00] VITALS: BP 92/53
[2020-12-08] VITALS (7 sets, daily range): BP systolic 82–122; BP diastolic 47–73
[2020-12-08] MEDS ORDERED: ALBUMIN 25% 100 ML IV ONE (00:22)
[2020-12-08] MEDS: ALBUMIN 25% 25 GM in PREMIX 1 EA IV SCH (00:37)
[2020-12-08] MEDS: BLOOD SUGAR DIAGNOSTIC 1 EACH STRIP IN SCH ×6 (00:47→22:21)
[2020-12-08] MEDS: IV D5/ 0.9% NACL 1,000 ML IV PRN ×2 (04:31→22:21)
--- NOTE | 2020-12-08 05:23 | NUR ---
Patients B/P trending down again despite IVF at 75cc/hr and albumin admin at 0100. BP 82/50. chemical production machine operator- replied with new order for IV NS 250mL bolus x1 now
[2020-12-08] MEDS ORDERED: IV NS 0.9% 250 ML IV ONE ×3 (05:30→09:07)
--- NOTE | 2020-12-08 06:19 | NUR ---
BODY SHOP TECHNICIAN CLOSING NOTES Patient has been A&Ox4 overnight. B/P trending down to 82/50, 250cc IV NS bolus currently infusing per MD order. Other VSS. Only c/o abdominal pain once relived by PRN [place]. Abdomen is slightly distended, eyes yellowed, +1 pitting edema to feet. AT this time patient denies, pain, nausea, dizziness, SOB, or any discomfort. BS has been stable between 79-106. Daily weight 170lbs. No signs of infiltration to IV. No signs of infection to R subclavian permacath site.
--- NOTE | 2020-12-08 07:30 | NUR ---
RN OPENING NOTE GRENADIAN SPEAKING PT SEATED UPRIGHT ON CHAIR NEXT TO BED, A/Ox4, T-PIECE 5L CURRENTLY, NO SOB OR RESP DISTRESS NOTED. PT STATES ABD PAIN 6/10, WILL ADMIN PAIN MEDS ORDERED. PT SR IN 80s ON TELE MONITOR, SKIN INTACT, RT CHEST WALL PERMACATH FOR HD INTACT, RAC #20 INFUSING D5NS @ 75 ML/HR, FLUSHED AND INTACT. PT AMBULATORY WITH ASSIST. PT DUE CT OF ABD/PELVIS WITH CONTRAST, ALL CONSENTS SIGNED. PT GIVEN NS BOLUS 250ML EARLIER IN MORNING FOR LOW BP, WILL MONITOR. ALL PT SAFETY PRECAUTIONS IN PLACE, WILL CONT TO MONITOR
[2020-12-08 07:33] LABS: BASOPHILS % (AUTO) 0.9 % (0.0-2.0); EOSINOPHILS % (AUTO) 1.4 % (0.0-6.0); HEMATOCRIT 28 % (39-51); LYMPHOCYTES # (AUTO) 0.6 K/uL (0.8-4.8); LYMPHOCYTES % (AUTO) 19.5 % (20.0-44.0); MEAN CORPUSCULAR HGB CONC 32 g/dl (31.0-36.0); MEAN CORPUSCULAR VOLUME 95 fL (80-96); MONOCYTES # (AUTO) 0.4 K/uL (0.1-1.30); MONOCYTES % (AUTO) 11.1 % (2.0-12.0); NEUTROPHILS # (AUTO) 2.2 K/uL (1.8-8.9); NEUTROPHILS % (AUTO) 67.1 % (43.0-81.0); PLATELET COUNT (AUTO) 67 K/uL (150-450); RED BLOOD CELL COUNT(AUTO) 2.92 MIL/uL (4.5-6.0); WHITE BLOOD COUNT (AUTO) 3.3 K/uL (4.3-11.0)
[2020-12-08 07:56] LABS: ALBUMIN 2.5 g/dL (3.4-5.0); BILIRUBIN,DIRECT 6.6 mg/dL (0.0-0.2); BILIRUBIN,TOTAL 8.1 mg/dL (0.2-1.0); TOTAL PROTEIN, SERUM 6.9 g/dL (6.4-8.2)
[2020-12-08 08:04] LABS: CALCIUM, SERUM 8.3 mg/dL (8.5-10.1); CREATININE 6.5 mg/dL (0.6-1.3); MAGNESIUM 2.5 mg/dL (1.8-2.4); PHOSPHORUS 5.5 mg/dL (2.5-4.9); POTASSIUM 3.9 mmol/L (3.5-5.1)
[2020-12-08] MEDS: HYDROCODONE/APAP 5/325MG TABLET PO PRN ×2 (08:57→22:49)
[2020-12-08] MEDS: HEPARIN SODIUM, PORCINE 5000 UNITS/1 ML VIAL SQ SCH ×2 (08:57→21:00)
--- NOTE | 2020-12-08 09:00 | NUR ---
RN NOTE DID NOT ADMIN HEPARIN D/T LOW PLT OF 67 AND USG THORACENTESIS TODAY OR TOMORROW. GUM SPRAYER, NACHO AVILES
[2020-12-08] MEDS ORDERED: IOHEXOL-300 100 ML VIAL IV ONE ×3 (09:07→09:13)
[2020-12-08] MEDS: NEPRO VAN 237 ML CAN PO SCH ×3 (09:24→17:50)
[2020-12-08] MEDS: ONDANSETRON HCL/PF 4 MG/2 ML VIAL IVP PRN (13:39)
--- NOTE | 2020-12-08 19:15 | NUR ---
RN CLOSING NOTE NO CHANGES TO PT DURING SHIFT. PT STABLE ON ROOM AIR, TRACH CAPPED, NO S/S OF SOB OR RESP DISTRESS, TRACH COLLAR BEDSIDE IF PT NEEDS, A/Ox4, AWARE OF RESPIRATORY NEEDS. PT HAD 1 EMESIS EPISODE, ZOFRAN CAN BE GIVEN AT 1930 IF NAUSEA STILL PRESENT. CURRENTLY ON HD, TOLERATING WELL. ALL PT SAFETY PRECAUTIONS IN PLACE, ERICA ENDORSED TO E LEARNING DESIGNER RN
--- NOTE | 2020-12-08 21:10 | NUR ---
COLOR COATER NOTE PT TRANSFERED TO ROOM 320 PER ACLS PROTOCOL. RT AT BED SIDE. REPORT GIVEN TO LORIN EUGENE.
--- NOTE | 2020-12-08 21:15 | NUR ---
Patient arrived to unit at 2114. No signs of distress. SR on monitor. Oriented patient to unit. Initial VS BP 106/67, HR 107, RR 18, Temp 98.0, O2 sat 93% on RA. Per MD on-call Fredi hold heparin d/t platelets 67 and thoracentesis in AM.
[2020-12-09] VITALS (7 sets, daily range): BP systolic 106–121; BP diastolic 68–79
[2020-12-09] MEDS: BLOOD SUGAR DIAGNOSTIC 1 EACH STRIP IN SCH ×6 (01:01→20:57)
--- NOTE | 2020-12-09 03:29 | NUR ---
RT Pt refused to wear trach mask for aerosol and refused trach care. RN at bedside and is aware.
--- NOTE | 2020-12-09 05:13 | NUR ---
Patient is A&Ox4. VSS. Sinus tachy on monitor 105-115 bpm. Refusing O2 via trach mask with cool aerosol. RT explained risks and benefits. O2 sat been around 93% on RA. Accepted trach care after discussion but initially did not want. Been stable overnight. Can ambulate to bathroom with assist. BS WNL overnight -checked q4h as ordered. Denies SOB no respiratory distress noted.
[2020-12-09 07:02] LABS: CALCIUM, SERUM 8.4 mg/dL (8.5-10.1); CREATININE 5.7 mg/dL (0.6-1.3); MAGNESIUM 2.2 mg/dL (1.8-2.4); PHOSPHORUS 4.1 mg/dL (2.5-4.9); POTASSIUM 3.6 mmol/L (3.5-5.1)
[2020-12-09 07:03] LABS: BASOPHILS % (AUTO) 0.5 % (0.0-2.0); EOSINOPHILS % (AUTO) 1.3 % (0.0-6.0); HEMATOCRIT 27 % (39-51); LYMPHOCYTES # (AUTO) 0.7 K/uL (0.8-4.8); LYMPHOCYTES % (AUTO) 16.3 % (20.0-44.0); MEAN CORPUSCULAR HGB CONC 33 g/dl (31.0-36.0); MEAN CORPUSCULAR VOLUME 95 fL (80-96); MONOCYTES # (AUTO) 0.5 K/uL (0.1-1.30); NEUTROPHILS # (AUTO) 2.9 K/uL (1.8-8.9); NEUTROPHILS % (AUTO) 68.9 % (43.0-81.0); WHITE BLOOD COUNT (AUTO) 4.2 K/uL (4.3-11.0)
--- NOTE | 2020-12-09 08:02 | NUR ---
INFECTION CONTROL NURSE OPENING NOTES RECEIVED PATIENT IN BED,AWAKE. PT IS A/Ox4, CITIZEN OF [place] SPEAKING. NO SOB NOTED. NO S/SX OF RESPIRATORY DISTRESS. PT HAS TRACH COLLAR SHILEY XLT. TELE MONITOR DETECTS SINUS TACHYCARDIA WITH RATE RANGING FROM 100-110. IV ON RAC #20 WITH D5NS RUNNING AT 75 ML/HOUR. SAFETY MEASURES IN PLACE BED IN LOWEST LOCKED POSITION, BRAKES ON, WITH SIDERAILS X2 UP.
[2020-12-09] MEDS: NEPRO VAN 237 ML CAN PO SCH ×3 (08:07→17:06)
[2020-12-09] MEDS: HEPARIN SODIUM, PORCINE 5000 UNITS/1 ML VIAL SQ SCH (08:09)
--- NOTE | 2020-12-09 08:10 | NUR ---
HEPARIN DOSE HELD BECAUSE OF THORACENTESIS TODAY AND ELEVATED INR.
[2020-12-09] MEDS: ONDANSETRON HCL/PF 4 MG/2 ML VIAL IVP PRN ×2 (08:39→12:17)
[2020-12-09 08:45] LABS: BAND % (MANUAL) 2 % (0.0-5.0); LYMPHOCYTES % (MANUAL) 12 % (16-48); MONOCYTES % (MANUAL) 10 % (0-11.0); NEUTROPHILS % (MANUAL) 76 (42-76)
[2020-12-09 08:48] LABS: PLATELET COUNT (AUTO) 57 K/uL (150-450)
--- NOTE | 2020-12-09 14:55 | NUR ---
RN NOTES PATIENT WAS SEEN BY DR. GOODE TODAY W/ ORDERS NOTED.
--- NOTE | 2020-12-09 18:25 | NUR ---
MOTOR AND CONTROLS TESTER CLOSING NOTES PATIENT SITTING IN BED,AWAKE. PT IS A/Ox4, URDU SPEAKING. NO SOB NOTED. NO S/SX OF RESPIRATORY DISTRESS. PT HAS TRACH COLLAR BANDAR XLT. DC'D FROM TELE MONITOR, PER . IV ON RAC #20 WITH D5NS RUNNING AT 75 ML/HOUR. DENIED ANY PAIN. TREATED NAUSEA TWICE THROUGHOUT SHIFT. SAFETY MEASURES IN PLACE: BED IN LOWEST, LOCKED POSITION, BRAKES ON, WITH SIDERAILS UP X2.WILL ENDORSE TO ONCOMING SHIFT.
--- NOTE | 2020-12-09 18:26 | NUR ---
RT Pt received awake/alert and trached on room air with adequate SpO2. Pt request not to be on cool aerosol but it is on stand by. BVM and spare trach by bedside. No SOB or respiratory distress noted. Addendum: 12/09/20 at 1827 by BILLY MEJIA RT Amended: Links added.
--- NOTE | 2020-12-09 20:21 | NUR ---
OPENING NOTES: AT THE BEDSIDE INVOLVED IN HIS CARE PATIENT ALERT AND ORIENTATED X4 REQUESTED A BSC FOR THE NIGHT BSC PLACED AT THE BEDSIDE INSTRUCTED THE PT TO CALL FOR ASSIST FOR SAFETY. ASKED ME TO GIVE ZOFRAN IN THE AM BEFORE BREAKFAST D/T HE HAS NOT APPETITE AND THIS WILL HELP. HE IS AMBULATING THE ROOM GOING TO THE BATHROOM STEADY ON HIS LEGS TRACH CLEAN NO SOB PT SMILING
--- NOTE | 2020-12-09 21:03 | NUR ---
ACCUCHECK AT THIS TIME 64 JUICE GIVEN PATIENT REQUESTED (SUGGESTED BY HIS ) SHE IS INVOLVED IN HIS CARE. HIS SKIN IS WARM AND DRY
--- NOTE | 2020-12-09 21:57 | NUR ---
Blood sugar retaken 83 at this time
[2020-12-09] MEDS: HYDROCODONE/APAP 5/325MG TABLET PO PRN (21:59)
[2020-12-10] VITALS (12 sets, daily range): BP systolic 102–123; BP diastolic 60–78
[2020-12-10] MEDS: BLOOD SUGAR DIAGNOSTIC 1 EACH STRIP IN SCH ×5 (01:12→21:48)
[2020-12-10] MEDS: ONDANSETRON HCL/PF 4 MG/2 ML VIAL IVP PRN (05:51)
--- NOTE | 2020-12-10 06:24 | NUR ---
alert and orientated X4 ambulates independenlty in the room smiliing and cooperative. His is very involved in his care and requested he be given Zofran this AM prior breakfast so that he may be willing to eat. Zofran given. No SOB this 12 hours ambulates NO SOB. no pain this 12 hours.
[2020-12-10 06:36] LABS: BASOPHILS % (AUTO) 0.7 % (0.0-2.0); EOSINOPHILS % (AUTO) 1.4 % (0.0-6.0); HEMATOCRIT 29 % (39-51); HEMOGLOBIN 9.2 g/dL (13.5-17.5); LYMPHOCYTES # (AUTO) 0.7 K/uL (0.8-4.8); LYMPHOCYTES % (AUTO) 13.5 % (20.0-44.0); MEAN CORPUSCULAR HGB CONC 32 g/dl (31.0-36.0); MEAN CORPUSCULAR VOLUME 95 fL (80-96); MONOCYTES # (AUTO) 0.6 K/uL (0.1-1.30); MONOCYTES % (AUTO) 10.9 % (2.0-12.0); NEUTROPHILS % (AUTO) 73.5 % (43.0-81.0); RED BLOOD CELL COUNT(AUTO) 3.01 MIL/uL (4.5-6.0); WHITE BLOOD COUNT (AUTO) 5.4 K/uL (4.3-11.0)
[2020-12-10 06:45] LABS: BILIRUBIN,TOTAL 10.6 mg/dL (0.2-1.0); CALCIUM, SERUM 8.3 mg/dL (8.5-10.1); MAGNESIUM 2.3 mg/dL (1.8-2.4); PHOSPHORUS 4.5 mg/dL (2.5-4.9); POTASSIUM 3.6 mmol/L (3.5-5.1); TOTAL PROTEIN, SERUM 6.1 g/dL (6.4-8.2)
[2020-12-10 07:10] LABS: PLATELET COUNT (AUTO) 48 K/uL (150-450)
--- NOTE | 2020-12-10 07:52 | NUR ---
MS/RN OPENING NOTES RECEIVED PATIENT IN BED, ALERT AND ORIENTED X4, ABLE TO MAKE NEEDS KNOWN. STABLE ON ROOM AIR. TRACH COLLAR PRN. FRISIAN SPEAKING. PATIENT IS AMBULATORY AND STABLE. NO DISCOMFORTS NOTED AT THIS TIME. SAFETY PRECAUTIONS IN PLACED. BED LOCKED ON LOWEST POSITION, SIDE RAILS UPX2, CALL LIGHT WITHIN REACH. WILL CONTINUE TO MONITOR PATIENT.
[2020-12-10] MEDS ORDERED: DEXTROSE 50%-WATER 50 ML DISP.SYRIN IV PRN (08:30)
[2020-12-10] MEDS: HYDROCODONE/APAP 5/325MG TABLET PO PRN (08:42)
[2020-12-10] MEDS: FOLIC ACID 1 MG TABLET PO SCH (08:42)
[2020-12-10] MEDS: NEPRO VAN 237 ML CAN PO SCH ×3 (08:48→17:43)
[2020-12-10 09:31] LABS: EOSINOPHILS % (MANUAL) 1 % (0-4); LYMPHOCYTES % (MANUAL) 8 % (16-48); MONOCYTES % (MANUAL) 9 % (0-11.0); NEUTROPHILS % (MANUAL) 82 (42-76)
[2020-12-10] MEDS ORDERED: diphenhydrAMINE HCL 50 MG/ML VIAL IV ONE (10:30)
--- NOTE | 2020-12-10 11:07 | NUR ---
MS/RN NOTES- INNER CANNULA PATIENT TOOK OUT HIS INNER CANNULA. INNER CANNULA NOTED TO HAVE BLOOD ON IT. PATIENT PLACED IT ON BEDSIDE. CALLED AND NOTIFY RT CORDELIA, PER CORDELIA- PATIENT NORMALLY DOES THIS EVERY 2 HOURS. PATIENT TAKES OUT INNER CANNULA AND PUT ANOTHER ONE ON. CORDELIA ALSO IS AWARE THAT IT HAS BLOOD ON IT. CHARGE NURSE MATHEW AVILES.
[2020-12-10] MEDS ORDERED: diphenhydrAMINE HCL 50 MG/ML VIAL ONE (14:38)
--- NOTE | 2020-12-10 15:13 | NUR ---
MS/RN NOTES 1 BAG OF PLASMA ADMINISTERED VIA GRAVITY. V/S WITHIN NORMAL. SO S/S OF DISTRESS OR ALLERGY REACTION NOTED. WILL CONTINUE TO MONITOR.
--- NOTE | 2020-12-10 16:15 | NUR ---
MS/RN NOTES 2ND PLASMA BAG STARTED. NO S/S OF ALLERGIES NOTED. V/S WITHIN NORMAL. WILL CONTINUE TO MONITOR.
--- NOTE | 2020-12-10 17:30 | NUR ---
MS/RN NOTES- PLASMA 2ND BAG OF PLASMA INFUSED. NO S/S OF ADVERSE REACTION NOTED. PATIENT'S VITAL SIGNS WITHIN NORMAL.
[2020-12-10] MEDS: PROSOURCE / PROSTAT (PYXIS) 30 ML UDC PO SCH (17:43)
--- NOTE | 2020-12-10 18:54 | NUR ---
MS/RN CLOSING NOTES PATIENT IN BED, ALERT AND ORIENTED X4, ABLE TO MAKE NEEDS KNOWN. STABLE ON ROOM AIR. TRACH COLLAR PRN. MONTSERRATIAN SPEAKING. PATIENT IS AMBULATORY AND STABLE. NO DISCOMFORTS NOTED AT THIS TIME. SAFETY PRECAUTIONS IN PLACED. BED LOCKED ON LOWEST POSITION, SIDE RAILS UPX2, CALL LIGHT WITHIN REACH. WILL ENDORSE TO THE NEXT SHIFT FOR ERICA..
--- NOTE | 2020-12-10 19:30 | NUR ---
MS RN Opening Notes Patient was last seen awake in bed resting. Patient's stable on room air. Patient has an IV access on his R forearm gauge #20. Patient's in no acute distress at this time. Safety measures in place: Bed locked, side rails up x2, and call light within reach of the patient. Will continue to monitor the patient.
--- NOTE | 2020-12-10 20:14 | NUR ---
MS RN Notes Patient completed HD. Vitals are stable. Output= 200mL.
--- NOTE | 2020-12-10 21:48 | NUR ---
MS RN Notes Patient's blood sugar at 2139 was 109 mg/dL. Will continue to monitor the patient.
[2020-12-11] MEDS: HYDROCODONE/APAP 5/325MG TABLET PO PRN ×2 (06:29→14:12)
[2020-12-11 06:57] LABS: BASOPHILS % (AUTO) 0.3 % (0.0-2.0); HEMATOCRIT 27 % (39-51); HEMOGLOBIN 8.8 g/dL (13.5-17.5); LYMPHOCYTES # (AUTO) 0.7 K/uL (0.8-4.8); MEAN CORPUSCULAR HGB CONC 32 g/dl (31.0-36.0); MEAN CORPUSCULAR VOLUME 95 fL (80-96); MONOCYTES # (AUTO) 0.6 K/uL (0.1-1.30); NEUTROPHILS # (AUTO) 4.9 K/uL (1.8-8.9); NEUTROPHILS % (AUTO) 77.7 % (43.0-81.0); RED BLOOD CELL COUNT(AUTO) 2.87 MIL/uL (4.5-6.0); WHITE BLOOD COUNT (AUTO) 6.3 K/uL (4.3-11.0)
[2020-12-11 07:06] LABS: PLATELET COUNT (AUTO) 32 K/uL (150-450)
[2020-12-11 07:17] LABS: CALCIUM, SERUM 8.8 mg/dL (8.5-10.1); POTASSIUM 3.5 mmol/L (3.5-5.1)
--- NOTE | 2020-12-11 07:17 | NUR ---
MS/RN OPENING NOTES RECEIVED PATIENT IN BED, ALERT AND ORIENTED X4, ABLE TO MAKE NEEDS KNOWN. STABLE ON ROOM AIR. TRACH COLLAR PRN @ 5 LPM. PATIENT HAS IV ACCESS ON R FOREARM # 20 SL, PATENT AND INTACT. PATIENT IS AMBULATORY AND STABLE. NO DISCOMFORTS NOTED AT THIS TIME. CRITICAL LAB VALUE WAS RELAYED 32 PLATELET. NOTIFIED. SAFETY PRECAUTIONS IN PLACED. BED LOCKED ON LOWEST POSITION, SIDE RAILS UPX2, CALL LIGHT WITHIN REACH. WILL CONTINUE TO MONITOR PATIENT.
--- NOTE | 2020-12-11 07:22 | NUR ---
MS RN Notes Patient's blood sugar at 0722 was 89 mg/dL.
[2020-12-11] MEDS: BLOOD SUGAR DIAGNOSTIC 1 EACH STRIP IN SCH ×4 (07:23→22:04)
[2020-12-11 08:00] VITALS: BP 124/73
[2020-12-11] MEDS: NEPRO VAN 237 ML CAN PO SCH ×3 (08:12→16:05)
[2020-12-11] MEDS: PROSOURCE / PROSTAT (PYXIS) 30 ML UDC PO SCH ×2 (08:12→16:05)
[2020-12-11] MEDS: FOLIC ACID 1 MG TABLET PO SCH (08:12)
--- NOTE | 2020-12-11 08:57 | NUR ---
RN NOTE MD GAVE NEW ORDER TO TRANSFUSE 2 UNITS OF PLATELETS. PATIENT AGREED TO PROCEDURE. EDUCATION INITIATED ON TRANSFUSION REACTIONS AND SIGNS AND SYMPTOMS. PATIENT VERBALIZED UNDERSTANDING. WILL CONTINUE TO EDUCATE.
--- NOTE | 2020-12-11 11:14 | NUR ---
RN NOTE PATIENT NOTED WITH TRACHEAL BLEEDING, MD AT BEDSIDE AND MADE AWARE, GLUCOSE 66, MD AWARE, GAVE ORANGE JUICE WITH SUGAR. WILL CONTINUE TO MONITOR
[2020-12-11 11:27] LABS: EOSINOPHILS % (MANUAL) 1 % (0-4); LYMPHOCYTES % (MANUAL) 9 % (16-48); MONOCYTES % (MANUAL) 2 % (0-11.0); NEUTROPHILS % (MANUAL) 88 (42-76)
[2020-12-11] MEDS: INSULIN REGULAR, HUMAN 100 UNIT/ML 3 ML VIAL SQ PRN ×3 (11:31→22:06)
--- NOTE | 2020-12-11 14:06 | NUR ---
RN NOTE PATIENT ASKED FOR ZOFRAN TO BE Q6HRS DUE TO CONSTANT NAUSEA, MD NOTIFIED WITH NEW ORDER FOR ZOFRAN Q6HRS FOR NAUSEA
[2020-12-11] MEDS: ONDANSETRON HCL/PF 4 MG/2 ML VIAL IVP SCH ×2 (14:11→21:17)
[2020-12-11 16:00] VITALS: BP 123/84
--- NOTE | 2020-12-11 18:17 | NUR ---
MS/RN CLOSING NOTES PATIENT IN BED, ALERT AND ORIENTED X4, ABLE TO MAKE NEEDS KNOWN. STABLE ON ROOM AIR. TRACH COLLAR PRN @ 5 LPM. PATIENT HAS IV ACCESS ON R FOREARM # 20 SL, PATENT AND INTACT. PATIENT IS AMBULATORY AND STABLE. NO DISCOMFORTS NOTED AT THIS TIME. PATIENT IS HAVING DIALYSIS AT THIS TIME. PATIENT UNABLE TO HAVE PLATELET TRANSFUSION DUE TO RED CROSS GUIDELINES, MD AWARE. ALL MEDICATIONS GIVEN ORDERED. TRACH CARE PERFORMED THROUGHOUT SHIFT. SAFETY PRECAUTIONS IN PLACED. BED LOCKED ON LOWEST POSITION, SIDE RAILS UPX2, CALL LIGHT WITHIN REACH. WILL ENDORSE TO ONCOMING SHIFT
--- NOTE | 2020-12-11 19:45 | NUR ---
MS OPENING NOTES PATIENT SLEEPING IN BED, EASILY AWAKENED, PT ABLE TO MAKE NEEDS KNOWN, ALERT/ORIENTED X 4. PT STABLE ON RA, NO S/S OF DISTRESS OR SOB NOTED, BREATHING EVEN AND UNLABORED, TRACH COLLAR @ 5 LPM PRN. PATIENT DENIES PAIN OR DISCOMFORT AT THIS TIME. PT STATES HE HAS NO NEEDS AT THIS TIME. PATIENT AMBULATORY AND STEADY WITH BRP. SAFETY MEASURES IN PLACE: BED LOCKED IN LOW POSITION, HOB ELEVATED, SIDE RAILS UP X 2, CALL LIGHT WITHIN REACH. WILL CONTINUE TO MONITOR
[2020-12-11 20:19] VITALS: BP 115/73
[2020-12-12] MEDS: ONDANSETRON HCL/PF 4 MG/2 ML VIAL IVP SCH ×3 (02:30→11:12)
[2020-12-12] MEDS ORDERED: ZOLPIDEM TARTRATE 5 MG TABLET PO PRN (04:00)
[2020-12-12] MEDS: INSULIN REGULAR, HUMAN 100 UNIT/ML 3 ML VIAL SQ PRN (07:38)
[2020-12-12] MEDS: BLOOD SUGAR DIAGNOSTIC 1 EACH STRIP IN SCH ×2 (07:38→12:19)
[2020-12-12 08:00] VITALS: BP 112/62
[2020-12-12] MEDS ORDERED: TEMAZEPAM 15 MG CAPSULE PO PRN (08:30)
[2020-12-12] MEDS ORDERED: BISACODYL (5 MG) 5 MG TABLET.DR PO PRN (08:30)
[2020-12-12] MEDS ORDERED: HOME MED MISCELLANEOUS XX SCH ×2 (08:30)
[2020-12-12] MEDS ORDERED: LORAZEPAM 1 MG TABLET PO PRN (08:30)
[2020-12-12] MEDS ORDERED: POLYETHYLENE GLYCOL 3350 17 GM POWD.PACK PO PRN (08:30)
[2020-12-12] MEDS ORDERED: diphenhydrAMINE HCL 25 MG CAPSULE PO PRN (08:30)
[2020-12-12] MEDS ORDERED: CLONIDINE HCL 0.1 MG TABLET PO PRN (08:30)
[2020-12-12] MEDS ORDERED: AMLODIPINE BESYLATE 10 MG TABLET PO SCH (09:00)
[2020-12-12] MEDS ORDERED: PROSOURCE / PROSTAT (PYXIS) 30 ML UDC PO SCH (09:00)
[2020-12-12] MEDS ORDERED: FOLIC ACID 1 MG TABLET PO SCH (09:00)
[2020-12-12] MEDS ORDERED: GABAPENTIN 400 MG CAPSULE PO SCH (09:00)
[2020-12-12] MEDS ORDERED: CARVEDILOL 6.25 MG TABLET PO SCH (09:00)
[2020-12-12] MEDS ORDERED: FERROUS SULFATE (325 MG) 325 MG/TAB TABLET PO SCH (09:00)
[2020-12-12] MEDS ORDERED: LEVETIRACETAM SOL (5 ML) 100 MG/ML UDC PO SCH (09:00)
[2020-12-12] MEDS ORDERED: NEPRO VAN 237 ML CAN PO SCH (09:00)
[2020-12-12 09:20] LABS: CALCIUM, SERUM 9.1 mg/dL (8.5-10.1); CREATININE 7.4 mg/dL (0.6-1.3); POTASSIUM 4.3 mmol/L (3.5-5.1)
[2020-12-12] MEDS ORDERED: ALBUTEROL FS 2.5 MG/3 ML VIAL.NEB NEB PRN (10:00)
[2020-12-12] MEDS ORDERED: hydrOXYzine PAMOATE 25 MG CAPSULE PO PRN (10:00)
[2020-12-12] MEDS ORDERED: IPRATROPIUM NEB FS 0.5 MG/2.5 ML AMPUL.NEB NEB PRN (10:00)
[2020-12-12] MEDS: LACTULOSE 10 G/15 ML UDC (PYXIS) PO SCH ×2 (10:35→13:30)
[2020-12-12] MEDS: OXYBUTYNIN CHLORIDE 5 MG TABLET PO SCH ×2 (10:35→13:30)
[2020-12-12] MEDS: GABAPENTIN 300 MG CAPSULE PO SCH ×2 (10:35→13:30)
[2020-12-12 10:37] VITALS: BP 112/62
[2020-12-12] MEDS: PROSOURCE / PROSTAT (PYXIS) 30 ML UDC PO SCH (10:38)
[2020-12-12] MEDS: NEPRO VAN 237 ML CAN PO SCH ×2 (10:39→12:19)
[2020-12-12] MEDS: FOLIC ACID 1 MG TABLET PO SCH (10:42)
[2020-12-12] MEDS: HYDROCODONE/APAP 5/325MG TABLET PO PRN ×2 (11:45→13:13)
--- NOTE | 2020-12-12 12:00 | NUR ---
blood sugar 69 juice given to the pt
[2020-12-12] MEDS ORDERED: MIDO10TA PO (12:48)
[2020-12-12] MEDS ORDERED: MEGE40TA5 PO (12:50)
[2020-12-12] MEDS ORDERED: CALCIUM ACETATE 667 MG TABLET PO SCH (13:00)
--- NOTE | 2020-12-12 14:48 | NUR ---
NURSE NOTE PT DISCHARGED HOME BUT PT IS GETTING DIALYSIS AT THIS TIME AFTER DIAYLSIS DISCAHRGE HOME WITH THE
[2020-12-12] MEDS ORDERED: ATORVASTATIN 10 MG TABLET PO SCH (22:00)
[2020-12-12] MEDS ORDERED: TAMSULOSIN 0.4 MG CAP.SR.24H PO SCH (22:00)
[2020-12-13] MEDS ORDERED: PANTOPRAZOLE 40 MG TABLET.DR PO SCH (07:30)
[2020-12-13] MEDS ORDERED: VITAMIN B COMP W-C 1 TAB TABLET PO SCH (09:00)
== END 2020-12-12 17:25 | DRG 280 ==
LOC: ER 12:08 → TRANSITION 15:59 → TELE1 18:08 → TELE 12-08 21:01 → MED 12-09 14:48
PROVIDERS: ADMIT Nurse Practitioner Acute Care; ATTEND Nurse Practitioner Acute Care
PROC: 5A1D70Z Performance of Urinary Filtration, Intermittent, Less than 6 Hours Per Day (ICD-10-PCS; 2020-12-06)
PROC: 30233K1 Transfusion of Nonautologous Frozen Plasma into Peripheral Vein, Percutaneous Approach (ICD-10-PCS; principal; 2020-12-10)
DX: K70.31 Alcoholic cirrhosis of liver with ascites (principal); J96.20 Acute and chronic respiratory failure, unspecified whether with hypoxia or hypercapnia; I81 Portal vein thrombosis; E43 Unspecified severe protein-calorie malnutrition; D68.9 Coagulation defect, unspecified; C22.0 Liver cell carcinoma; I12.0 Hypertensive chronic kidney disease with stage 5 chronic kidney disease or end stage renal disease; E87.1 Hypo-osmolality and hyponatremia; D63.8 Anemia in other chronic diseases classified elsewhere; E87.2 Acidosis; J90 Pleural effusion, not elsewhere classified; K76.6 Portal hypertension; N18.6 End stage renal disease; Z93.0 Tracheostomy status; E87.5 Hyperkalemia; E86.9 Volume depletion, unspecified; Z20.822 Contact with and (suspected) exposure to COVID-19; Z86.73 Personal history of transient ischemic attack (TIA), and cerebral infarction without residual deficits; Z93.1 Gastrostomy status; Z85.118 Personal history of other malignant neoplasm of bronchus and lung; Z87.891 Personal history of nicotine dependence; Z88.1 Allergy status to other antibiotic agents; Z79.51 Long term (current) use of inhaled steroids; Z79.899 Other long term (current) drug therapy; E87.8 Other disorders of electrolyte and fluid balance, not elsewhere classified; K80.20 Calculus of gallbladder without cholecystitis without obstruction; K82.8 Other specified diseases of gallbladder; D69.59 Other secondary thrombocytopenia; F41.9 Anxiety disorder, unspecified; E16.2 Hypoglycemia, unspecified; G40.909 Epilepsy, unspecified, not intractable, without status epilepticus; J98.11 Atelectasis; I70.8 Atherosclerosis of other arteries; J44.9 Chronic obstructive pulmonary disease, unspecified; K40.90 Unilateral inguinal hernia, without obstruction or gangrene, not specified as recurrent; K57.90 Diverticulosis of intestine, part unspecified, without perforation or abscess without bleeding; N25.0 Renal osteodystrophy; Z99.2 Dependence on renal dialysis; R13.10 Dysphagia, unspecified; I86.4 Gastric varices
CPT/HCPCS: 31720; 36415; 71045-TC; 76705-TC; 80048-TC; 80053-TC; 80076-TC; 82105; 82378; 82962-TC; 83690-TC; 83735-TC; 84100-TC; 84132-TC; 84484-TC; 85025-TC; 85610-TC; 85730-TC; 86301; 86706; 86850-TC; 87081-TC; 87340; 90935-TC; 93979-TC; 94640-TC; 94760-TC; 94799-TC; 99082-TC; A4216; A4623; A6403; C9803; G0378; J1200; J1644; J1815; J1953; J2270; J2405; J3490; J7030; J7042; J7050; P9017; P9047; Q9967

== ENCOUNTER 2020-12-13 16:55 | Inpatient (IN) | payer MEDICAID ==
[~2020-12-13] VITALS: Ht 167.6 cm; Wt 75.7 kg
[~2020-12-13 16:55] MED LIST changes: +MEGE40TA5 PO; +MIDO10TA PO
--- NOTE | 2020-12-13 17:15 | NUR ---
BIB ems frm dialysis center for low blood pressure and hypoxia. The patient denies pain. In room air and denies SOB. Respiration regular and unlabored. Right upper chest HD cath present. Attached to the monitor.
--- NOTE | 2020-12-13 17:23 | NUR ---
MOVE SHEET SUBMITTED.
[2020-12-13 18:27] LABS: ALANINE AMINOTRANSFERASE 98 U/L (12-78); ALBUMIN 1.8 g/dL (3.4-5.0); ALKALINE PHOSPHATASE 271 U/L (46-116); ASPARTATE AMINOTRANSFERASE 282 U/L (15-37); BILIRUBIN,DIRECT 9.9 mg/dL (0.0-0.2); BILIRUBIN,TOTAL 11.9 mg/dL (0.2-1.0); CALCIUM, SERUM 8.1 mg/dL (8.5-10.1); CARBON DIOXIDE 30 mmol/L (21-32); CHLORIDE 101 mmol/L (98-107); CREATININE 3.1 mg/dL (0.6-1.3); GLUCOSE 64 mg/dL (74-106); POTASSIUM 3.4 mmol/L (3.5-5.1); SODIUM SERUM 138 mmol/L (136-145); TOTAL PROTEIN, SERUM 6.1 g/dL (6.4-8.2); UREA NITROGEN, BLOOD 14 mg/dL (7-18)
--- NOTE | 2020-12-13 18:29 | NUR ---
CALLED HOUSE SUP FOR PICC
[2020-12-13] MEDS ORDERED: PIPERACILLIN /TAZOBACTAM 3.375 G in IV D5W 50 ML IV ONE (18:30)
[2020-12-13] MEDS ORDERED: IV NS 0.9% 1,000 ML BAG IV ONE (18:30)
[2020-12-13 18:46] LABS: ABG BASE EXCESS -1.7 mmol/L; ABG OXYGEN SATURATION 89.4 % (92.0-98.5); ABG PCO2 35.7 mmHg (35.0-45.0); ABG PH 7.417 (7.350-7.450); ABG PO2 63.1 mmHg (75.0-100.0); AaDO2 94.4 mmHg; COHb 1.5 % (0.5-1.5); MetHb 0.5 % (0.0-1.5); O2Hb 87.6 % (94.0-97.0); SITE, ABG Right Radial
[2020-12-13 18:51] LABS: BASOPHILS % (AUTO) 0.5 % (0.0-2.0); MEAN CORPUSCULAR HGB CONC 32 g/dl (31.0-36.0); MONOCYTES # (AUTO) 0.6 K/uL (0.1-1.30); NEUTROPHILS # (AUTO) 4.7 K/uL (1.8-8.9)
[2020-12-13 18:54] LABS: EOSINOPHILS % (AUTO) 1.3 % (0.0-6.0); HEMATOCRIT 27 % (39-51); LYMPHOCYTES # (AUTO) 1.1 K/uL (0.8-4.8); LYMPHOCYTES % (AUTO) 17.1 % (20.0-44.0); MEAN CORPUSCULAR VOLUME 97 fL (80-96); MONOCYTES % (AUTO) 9.5 % (2.0-12.0); NEUTROPHILS % (AUTO) 71.6 % (43.0-81.0)
[2020-12-13 18:56] LABS: HEMOGLOBIN 8.5 g/dL (13.5-17.5); RED BLOOD CELL COUNT(AUTO) 2.76 MIL/uL (4.5-6.0)
[2020-12-13 19:01] LABS: PLATELET COUNT (AUTO) 46 K/uL (150-450)
--- NOTE | 2020-12-13 19:05 | NUR ---
rec'd report from VALORIE Yusuf for alisha
--- NOTE | 2020-12-13 19:06 | NUR ---
the patient stated that he does not produce urine. unable to get urine. Dr Perez aware. Per MD no new orders.
[2020-12-13] MEDS ORDERED: VANCOMYCIN 1 GM in IV D5W 250 ML IV ONE (19:30)
--- NOTE | 2020-12-13 19:30 | NUR ---
[facility] PAGED - DR. DONIS VIA EXCHANGE
--- NOTE | 2020-12-13 19:30 | NUR ---
DR. CHRISTENSEN SPEAKING WITH DR. OCAMPO
[2020-12-13] MEDS ORDERED: ACETAMINOPHEN 325 MG TABLET PO PRN (20:00)
[2020-12-13] MEDS ORDERED: MAG HYDROX/AL HYDROX/SIMETH 30 ML UDC PO PRN (20:00)
[2020-12-13] MEDS ORDERED: ZOLPIDEM TARTRATE 5 MG TABLET PO PRN (20:00)
[2020-12-13] MEDS ORDERED: MAGNESIUM HYDROXIDE 30 ML UDC PO PRN (20:00)
[2020-12-13] MEDS ORDERED: Z GUARD REMEDY 2 OZ OINT TP PRN (20:00)
[2020-12-13 20:09] LABS: LYMPHOCYTES % (MANUAL) 12 % (16-48); MONOCYTES % (MANUAL) 6 % (0-11.0); NEUTROPHILS % (MANUAL) 82 (42-76)
--- NOTE | 2020-12-13 20:16 | NUR ---
covid swab sent to lab
--- NOTE | 2020-12-13 21:37 | NUR ---
picc line nurse at bedside
--- NOTE | 2020-12-13 22:29 | NUR ---
LACTIC ACID REFLEX 4.5, PER LAB
--- NOTE | 2020-12-13 22:30 | NUR ---
CALLED RADIOLOGY FOR STAT CHEST XRAY
--- NOTE | 2020-12-13 22:47 | NUR ---
GAVE REPORT TO VALORIE COSBY FOR ERICA
[2020-12-14] VITALS (7 sets, daily range): BP systolic 86–115; BP diastolic 42–55
--- NOTE | 2020-12-14 00:35 | NUR ---
TELE-TD/INDUSTRIAL SAFETY AND HEALTH MANAGER PT BP 88/54 DR. DONIS MADE AWARE NEW ORDER FOR MIDODRINE 10MG PO PRN FOR SBP LESS THAN 90.
[2020-12-14] MEDS ORDERED: PIPERACILLIN /TAZOBACTAM 3.375 G VIAL IV ONE ×2 (00:57→06:47)
[2020-12-14] MEDS: MIDODRINE HCL (5MG) 5 MG TABLET PO PRN ×2 (00:59→16:08)
[2020-12-14] MEDS: ZOSYN IVPB 3.375 G in IV D5W 50ml IV SCH ×2 (01:01→06:49)
--- NOTE | 2020-12-14 04:30 | NUR ---
TELE-TD/SEAFOOD AND SERVICE MEAT MANAGER PT BP 86/45 DR. DONIS MADE AWARE NEW ORDER FOR 250ML NS BOLUS x1.
[2020-12-14] MEDS ORDERED: IV NS 0.9% 250 ML IV ONE (05:30)
--- NOTE | 2020-12-14 06:17 | NUR ---
TELE-TD/REFINING EQUIPMENT OPERATOR DR. BRIZUELA AT BEDSIDE TO EVALUATE PT. MADE AWARE OF CURRENT BP 89/47.
[2020-12-14 06:56] LABS: CALCIUM, SERUM 8.3 mg/dL (8.5-10.1); MAGNESIUM 2.2 mg/dL (1.8-2.4)
[2020-12-14] MEDS: HYDROCORTISONE SOD SUCCINATE 100 MG/2 ML VIAL IV SCH ×3 (06:57→21:23)
[2020-12-14 06:59] LABS: BASOPHILS # (AUTO) 0.1 K/uL (0.0-0.2); BASOPHILS % (AUTO) 0.8 % (0.0-2.0); EOSINOPHILS % (AUTO) 1.3 % (0.0-6.0); HEMATOCRIT 28 % (39-51); HEMOGLOBIN 8.8 g/dL (13.5-17.5); LYMPHOCYTES # (AUTO) 1.2 K/uL (0.8-4.8); LYMPHOCYTES % (AUTO) 17.8 % (20.0-44.0); MEAN CORPUSCULAR HGB CONC 32 g/dl (31.0-36.0); MEAN CORPUSCULAR VOLUME 97 fL (80-96); MONOCYTES # (AUTO) 0.6 K/uL (0.1-1.30); NEUTROPHILS % (AUTO) 72.1 % (43.0-81.0); PLATELET COUNT (AUTO) 52 K/uL (150-450); RED BLOOD CELL COUNT(AUTO) 2.84 MIL/uL (4.5-6.0); WHITE BLOOD COUNT (AUTO) 6.9 K/uL (4.3-11.0)
--- NOTE | 2020-12-14 07:10 | NUR ---
RN OPENING NOTES RECEIVED PT IN BED, A/O X2-3. TRACH OF SHILEY 8 XLT TO COOL AEROSOL. O2 SAT @97%. NO SOB OR ANY RESPIRATORY DISTRESS NOTED. SR ON TELE MONITOR. SKIN IS INTACT. DIVINE PICC INTACT AND FLUSHED. RIJ HD CATH NOTED. NO PAIN REPORTED AT THIS TIME. SAFETY MEASURES IN PLACE. CALL LIGHT WITHIN REACH. BED LOCKED AND AT LOWEST POSITION WITH SIDE RAILS UP X3. BED ALARM ON. WILL CONTINUE TO MONITOR.
[2020-12-14] MEDS: PANTOPRAZOLE 40 MG TABLET.DR PO SCH (08:15)
[2020-12-14 08:31] LABS: EOSINOPHILS % (MANUAL) 3 % (0-4); LYMPHOCYTES % (MANUAL) 14 % (16-48); MONOCYTES % (MANUAL) 3 % (0-11.0); NEUTROPHILS % (MANUAL) 80 (42-76)
[2020-12-14] MEDS: PIPERACILLIN /TAZOBACTAM 2.25 G in IV D5W 50 ML IV SCH ×2 (09:18→16:31)
[2020-12-14] MEDS ORDERED: EPOETIN ALFA (10,000 UNIT) 10,000 UNIT/ML VIAL IV ONE (12:00)
[2020-12-14] MEDS: ONDANSETRON HCL/PF 4 MG/2 ML VIAL IVP PRN (12:09)
[2020-12-14] MEDS: ALBUMIN 25% 25 GM in PREMIX 1 EA IV PRN (12:42)
--- NOTE | 2020-12-14 13:00 | NUR ---
RN NOTES PT STARTED HD, VS STABLE.
--- NOTE | 2020-12-14 16:00 | NUR ---
RN NOTES HD DONE. 500ML OUT. VS STABLE.
--- NOTE | 2020-12-14 18:49 | NUR ---
RN NOTES NO SIGNIFICANT CHANGES THROUGHOUT THE SHIFT. NO SOB OR ANY DISTRESS NOTED. NO PAIN REPORTED AT THIS TIME. ALL DUE MEDS GIVEN. NEEDS ATTENDED. KEPT CLEAN AND COMFORTABLE. SAFETY MEASURES IN PLACE. WILL ENDORSE TO NIGHT RN FOR ERICA.
--- NOTE | 2020-12-14 19:20 | NUR ---
RN NOTES PT COMPLAINTS OF PAIN ; PAIN LEVEL IS AT 5 ; AREA ABDOMINAL ARE AND LEGS. INFORMED ONCALL MD AND SECURED ORDER FOR NORCO 5MG Q6H PRN. WILL CARRY OUT ORDERED. DOMESTIC HOUSEKEEPER MADE AWARE.
[2020-12-14] MEDS ORDERED: HYDROCODONE/APAP 5/325MG TABLET PO PRN (19:30)
--- NOTE | 2020-12-14 19:30 | NUR ---
RN OPENING NOTES: RECEIVED PT A/OX 3-4 IN BED RESTING COMFORTABLY. PATIENT IN NO S/SX OF ACUTE DISTRESS AT THIS TIME. NO SOB NOTED. PATIENT'S BREATHING IS EVEN AND UNLABORED. PATIENT IS ON TRACH COLLAR WITH 02 OF 8L AND F1O2 OF 28%; TOLERATING WELL. PATIENT ON TELE MONITORING READING SINUS RHYTHM HR IS @90s AT THE TIME OF RECEIVED. PATIENT ON RENAL STANDARD DIET; TOLERATES WELL. NOTED IV SITE ON R UA PICC LINE; PATENT, INTACT AND FLUSHING WELL; NO S/S OF INFECTION OR INFILTRATION. PT ALSO HAS R IJ CATH SECURED AND INTACT NO SIGNS OF INFECTION. SAFETY MEASURES HAVE BEEN PROVIDED AND IMPLEMENTED. PATIENT BED ALARM IS ON. HEAD OF BED ELEVATED. BED IS LOCKED, IN LOWEST POSITION AND SIDE RAILS UP. CALL LIGHT WITHIN REACH OF THE PATIENT. APPLICABLE ISOLATION PRECAUTIONS IN PLACE. WILL CONTINUE TO MONITOR AND REASSESS FOR ANY CHANGES AND WILL CARRY OUT ANY ONGOING AND ACTIVE MD ORDER.
[2020-12-14] MEDS ORDERED: GENTAMICIN IV ONE (21:00)
[2020-12-14] MEDS ORDERED: D5W IV ONE (21:00)
[2020-12-14] MEDS ORDERED: GENTAMICIN 80 MG/2 ML VIAL ONE (21:18)
--- NOTE | 2020-12-14 21:30 | NUR ---
RN NOTES GENTAMICIN 75MG IN IV D5W GIVEN SCHEDULED. MASTER DATA ANALYST PULLED OUT MEDICATION FROM [employer] ( AVAILABLE DOSE IS 80MG/2ML VIAL , CALCULATED DOSE BY AVAILABLE DOSE AND DOSE TO GIVE. ADMINISTERED 75MG ORDERED. MASTER DATA ANALYST WELL AWARE.
--- NOTE | 2020-12-14 23:00 | NUR ---
RN NOTES PATIENT REMAINED TO BE IN NO SIGNS OF ACUTE RESPIRATORY DISTRESS , VITAL SIGNS WNL AT THIS TIME. DEHAIRER MADE AWARE. WILL CONTINUE TO MONITOR AND REASSESS FOR ANY CHANGES THROUGHOUT THE SHIFT.
[2020-12-15] VITALS: BP 101/50
[2020-12-15 04:00] VITALS: BP 90/54
--- NOTE | 2020-12-15 04:00 | NUR ---
RN NOTES NO NOTED CHANGES IN PATIENT CONDITION AT THIS TIME; PATIENT VITALS STABLE, NO SIGNS OF ACUTE RESPIRATORY DISTRESS. AM PATIENT CARE RENDERED. LEARNING AND DEVELOPMENT ADMINISTRATOR MADE AWARE. WILL CONTINUE TO MONITOR AND REASSESS FOR ANY CHANGES THROUGHOUT THE SHIFT.
[2020-12-15] MEDS: HYDROCORTISONE SOD SUCCINATE 100 MG/2 ML VIAL IV SCH ×3 (04:02→20:52)
--- NOTE | 2020-12-15 06:50 | NUR ---
RN NOTES PT TRANSFERRED TO 3W/MED SURG UNIT RM304#1 UNDER ACLS PROTOCOL; PT TRANSFERRED UNDER STABLE CONDITION AND VS WNL, RECEIVED BY VALORIE DIMAS & AND WILLIE EUGENE, BESIDE REPORT GIVEN ALL PERTINENT INFO PROVIDED FOR ERICA. COURTESY DRIVER MADE AWARE
[2020-12-15] MEDS ORDERED: GENTAMICIN 80 MG in IV D5W 50 ML IV PRN (07:00)
--- NOTE | 2020-12-15 07:38 | NUR ---
STREETSWEEPER OPERATOR OPENING NOTES RECEIVED PATIENT ASLEEP IN BED, EASY TO AROUSE. ALERT AND ORIENTED X 3-4, ABLE TO MAKE NEEDS KNOWN. BREATHING IS EVEN AND UNLABORED. NO SOB OR COMPLAINTS OF PAIN. PATIENT WITH TC 8L FIO2 28% WITH SATURATION OF 95%. IV ACCESS DIVINE PICC PATENT, INTACT AND FLUSHING WELL. SAFETY MEASURES IN PLACE WITH CALL LIGHT WITHIN REACH, BED LOCKED AT LOW POSITION AND SIDE RAILS UP X2. WILL CONTINUE TO MONITOR PATIENT THROUGHOUT SHIFT.
[2020-12-15 08:00] VITALS: BP 84/51
[2020-12-15] MEDS: PANTOPRAZOLE 40 MG TABLET.DR PO SCH (08:13)
[2020-12-15 08:35] LABS: CALCIUM, SERUM 8.4 mg/dL (8.5-10.1); CREATININE 4.4 mg/dL (0.6-1.3); POTASSIUM 4.7 mmol/L (3.5-5.1)
[2020-12-15] MEDS: ONDANSETRON HCL/PF 4 MG/2 ML VIAL IVP PRN (12:08)
--- NOTE | 2020-12-15 15:15 | NUR ---
ROLLING MILL OPERATOR NOTES PATIENT NOTED WITH SACRAL REDNESS AND EDEMATOUS PENIS PER , JULY. PHOTOS TAKEN AND FILED IN CHART.
[2020-12-15 16:00] VITALS: BP 101/61
--- NOTE | 2020-12-15 18:42 | NUR ---
DIE REPAIR CLOSING NOTES PATIENT IS IN BED, ABLE TO MOVE AND FOLLOW WITH EYES. NO SIGNS OR SYMPTOMS OF DISTRESS. ALL NEEDS MET THROUGHOUT SHIFT. TEMPERATURE DECREASED TO 99.8F AFTER TYLENOL ADMINISTRATION. NO IVF RUNNING AT THIS TIME. ALL SAFETY MEASURES MAINTAINED WITH BED LOCKED AT LOW POSITION AND SIDE RAILS UP X2. CALL LIGHT IS WITHIN REACH. WILL ENDORSE CONTINUITY OF CARE TO ONCOMING SHIFT. Addendum: 12/15/20 at 1847 by PATRICIA ATKINSON RN ERROR ADDENDUM. WRONG PATIENT CHARTING.
--- NOTE | 2020-12-15 18:47 | NUR ---
CORN SHELLER OPERATOR CLOSING NOTES PATIENT IS RESTING IN BED, COMFORTABLY WITH AT BESIDE. NO SIGNS OR SYMPTOMS OF DISTRESS NOTED. NO COMPLAINTS AT THIS TIME. ALL NEEDS MET THROUGHOUT SHIFT. PICC LINE DIVINE PATENT INTACT AND FLUSHING WELL. SAFETY MEASURE MAINTAINED. CALL LIGHT IS WITHIN REACH. WILL ENDORSE CONTINUITY OF CARE TO ONCOMING SHIFT.
--- NOTE | 2020-12-15 19:30 | NUR ---
BILLING COORDINATOR OPENING NOTES RECEIVED PATIENT AWAKE ON BED, EASY TO AROUSE. ALERT AND ORIENTED X 3-4. ABLE TO MAKE NEEDS KNOWN. BREATHING EVENLY AND UNLABORED. WITH NO COMPLAINTS OF SOB AND PAIN. PATIENT WITH TC 8L FIO2 28% WITH SATURATION OF 94%. IV ACCESS DIVINE PICC PATENT, INTACT AND FLUSHING WELL. SAFETY MEASURES IN PLACED. CALL LIGHT WITHIN REACH. BED ON LOWEST, LOCKED POSITION AND SIDE RAILS UP X2. WILL CONTINUE TO MONITOR..
[2020-12-15 20:00] VITALS: BP 93/66
[2020-12-15 20:53] VITALS: BP 83/59
[2020-12-16 00:28] VITALS: BP 91/58
[2020-12-16] MEDS: HYDROCORTISONE SOD SUCCINATE 100 MG/2 ML VIAL IV SCH ×2 (04:33→12:13)
[2020-12-16 04:45] VITALS: BP 83/55
--- NOTE | 2020-12-16 06:24 | NUR ---
SQL DATABASE DEVELOPER CLOSING NOTES PATIENT ON BED, ASLEEP. ON TC WITH O2 OF 8L AND FIO2 AT 28%. WITH NO COMPLAINTS OF SOB. NOT IN DISTRESS. PICC LINE DIVINE PATENT, INTACT AND FLUSHING WELL. WITH IV ACCESS AT RIGHT UPPER ARM PICC LINE, SALINE LOCKED. SAFETY MEASURES MAINTAINED. CALL LIGHT WITHIN REACH. BED ON LOWEST AND LOCKED POSITION. ALL NEEDS ATTENDED. WILL ENDORSE FOR CONTINUITY OF CARE TO ONCOMING SHIFT.
[2020-12-16 06:31] LABS: CALCIUM, SERUM 8.4 mg/dL (8.5-10.1); CREATININE 5.3 mg/dL (0.6-1.3); POTASSIUM 4.9 mmol/L (3.5-5.1)
--- NOTE | 2020-12-16 07:33 | NUR ---
MULTI OPERATION MACHINE OPERATOR OPENING NOTES RECEIVED PATIENT ASLEEP IN BED, EASY TO AROUSE. ALERT AND ORIENTED X 3-4, ABLE TO MAKE NEEDS KNOWN. BREATHING IS EVEN AND UNLABORED. NO SOB OR COMPLAINTS OF PAIN. PATIENT WITH TC 8L FIO2 35% WITH SATURATION OF 99%. IV ACCESS DIVINE PICC PATENT, INTACT AND FLUSHING WELL. SAFETY MEASURES IN PLACE WITH CALL LIGHT WITHIN REACH, BED LOCKED AT LOW POSITION AND SIDE RAILS UP X2. WILL CONTINUE TO MONITOR PATIENT THROUGHOUT SHIFT.
[2020-12-16] MEDS: PANTOPRAZOLE 40 MG TABLET.DR PO SCH (07:51)
[2020-12-16 08:00] VITALS: BP 90/53
--- NOTE | 2020-12-16 12:03 | NUR ---
TOBACCO SIZER NOTES PATIENTS , JULY REQUESTED FOR MD TO DISCHARGE PATIENT TODAY. SPOKE WITH DR. DEREJE KATHLEEN AND SAID HE IS UNABLE TO DC TODAY, MADE AWARE AND IS UPSET. INFORMED DR. KATHLEEN PATIENTS WOULD LIKE TO SPEAK TO HIM.
[2020-12-16] MEDS: ONDANSETRON HCL/PF 4 MG/2 ML VIAL IVP PRN (12:18)
[2020-12-16] MEDS: MIDODRINE HCL (5MG) 5 MG TABLET PO PRN (14:47)
[2020-12-16] MEDS: ALBUMIN 25% 25 GM in PREMIX 1 EA IV PRN (15:57)
--- NOTE | 2020-12-16 19:33 | NUR ---
TELE DISCHARGE NOTES RECEIVED ORDER FOR DISCHARGE. ALL DISCHARGE ORDERS REVIEWED AND SIGNED WITH PATIENT. PATIENT REFUSED PHOTOS. 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 REPORT GIVEN TO VALORIE WEINER.
--- NOTE | 2020-12-16 19:59 | NUR ---
HAND LOOM WEAVER NOTE PATIENT PICKED UP BY JULY. DIVINE PICC LINE PATENT AND INTACT, DRESSING CLEAN, DRY AND INTACT. PATIENT HAS A TRACH PRESENT, ON TRACH COLLAR. PATIENT IS STABLE AT THIS TIME. NOT IN ANY APPARENT DISTRESS. EXIT CARE PROVIDED AND REVIEWED.
[2020-12-16 20:00] VITALS: BP 103/61
== END 2020-12-16 20:00 | DRG 139 ==
LOC: ER 17:17 → TELE1 22:21 → TELE-TD 22:55 → TELE1 12-14 13:42 → TELE 12-15 06:45
PROVIDERS: ADMIT Student in an Organized Health Care Education/Training Program; ATTEND Internal Medicine
PROC: 02HV33Z Insertion of Infusion Device into Superior Vena Cava, Percutaneous Approach (ICD-10-PCS; 2020-12-13)
PROC: B548ZZA Ultrasonography of Superior Vena Cava, Guidance (ICD-10-PCS; 2020-12-13)
PROC: 5A1D70Z Performance of Urinary Filtration, Intermittent, Less than 6 Hours Per Day (ICD-10-PCS; principal; 2020-12-14)
DX: J15.9 Unspecified bacterial pneumonia (principal); J96.21 Acute and chronic respiratory failure with hypoxia; I81 Portal vein thrombosis; G93.41 Metabolic encephalopathy; E44.0 Moderate protein-calorie malnutrition; I13.2 Hypertensive heart and chronic kidney disease with heart failure and with stage 5 chronic kidney disease, or end stage renal disease; R18.8 Other ascites; D68.9 Coagulation defect, unspecified; E87.2 Acidosis; N18.6 End stage renal disease; C22.0 Liver cell carcinoma; D63.8 Anemia in other chronic diseases classified elsewhere; E87.1 Hypo-osmolality and hyponatremia; D69.59 Other secondary thrombocytopenia; K74.60 Unspecified cirrhosis of liver; Z93.0 Tracheostomy status; Z20.822 Contact with and (suspected) exposure to COVID-19; Z86.73 Personal history of transient ischemic attack (TIA), and cerebral infarction without residual deficits; Z85.118 Personal history of other malignant neoplasm of bronchus and lung; Z93.1 Gastrostomy status; Z85.05 Personal history of malignant neoplasm of liver; Z99.2 Dependence on renal dialysis; Z88.1 Allergy status to other antibiotic agents; Z79.51 Long term (current) use of inhaled steroids; Z79.899 Other long term (current) drug therapy; E87.5 Hyperkalemia; F41.9 Anxiety disorder, unspecified; G40.909 Epilepsy, unspecified, not intractable, without status epilepticus; E16.2 Hypoglycemia, unspecified; E87.8 Other disorders of electrolyte and fluid balance, not elsewhere classified; J90 Pleural effusion, not elsewhere classified; I86.4 Gastric varices; I50.9 Heart failure, unspecified; J98.11 Atelectasis; R13.10 Dysphagia, unspecified; K82.8 Other specified diseases of gallbladder; K80.20 Calculus of gallbladder without cholecystitis without obstruction; K57.30 Diverticulosis of large intestine without perforation or abscess without bleeding; I70.0 Atherosclerosis of aorta
CPT/HCPCS: 31720; 36415; 36569; 36600; 71045-TC; 80048-TC; 80061-TC; 80076-TC; 80170-TC; 80202-TC; 82140-TC; 82533; 82803-TC; 82962-TC; 83605-TC; 83735-TC; 83880; 84100-TC; 84484-TC; 85025-TC; 85730-TC; 87040-TC; 87081-TC; 90935-TC; 93970-TC; 94640-TC; 94760-TC; 94799-TC; A4216; A4623; C9803; G0378; J0885; J1580; J1720; J2405; J2543; J3370; J7030; J7050; J7060; P9047

== ENCOUNTER 2020-12-23 21:05 | Inpatient (IN) | payer MEDICAID ==
[~2020-12-23] VITALS: Ht 180.3 cm; Wt 77.1 kg
[~2020-12-23 21:05] MED LIST changes: -MEGE40TA5 PO
[2020-12-23] MEDS ORDERED: IV NS 0.9% 1,000 ML BAG IV ONE ×2 (22:00→23:30)
--- NOTE | 2020-12-23 22:08 | NUR ---
[facility]LVESTER FROM SNF TO ER BED 6. ALERT, AWAKE BUT NON VERBAL. TRACHEOSTOMY PRESENT. BROUGHT IN FOR ALTERED MENTAL STATUS AND LOW BP. UPON ASSESMENT, PT IS NOTED WITH BP OF 99/47. PT AFEBRILE. MD WAS AT THE BEDSIDE. PICC LINE PRESENT ON DIVINE. PT ON MONITOR.
--- NOTE | 2020-12-23 22:12 | NUR ---
IN AND OUT CATH INSERTED. NO OUTPUT NOTED
[2020-12-23] MEDS ORDERED: PIPERACILLIN /TAZOBACTAM 2.25 G in IV D5W 50 ML IV ONE (22:30)
[2020-12-23] MEDS ORDERED: CEFTRIAXONE 1 G in IV D5W 50 ML IV ONE (22:30)
[2020-12-23] MEDS ORDERED: VANCOMYCIN 1 GM in IV D5W 250 ML IV ONE (22:30)
[2020-12-23] MEDS ORDERED: VANCOMYCIN 1 GM VIAL ONE (22:32)
[2020-12-23] MEDS ORDERED: CEFTRIAXONE 1GM BAG (ER ONLY) 50 ML IV ONE (22:32)
[2020-12-23 22:39] LABS: CALCIUM, SERUM 8.7 mg/dL (8.5-10.1); CARBON DIOXIDE 20 mmol/L (21-32); CHLORIDE 99 mmol/L (98-107); CREATININE 4.8 mg/dL (0.6-1.3); GLUCOSE 58 mg/dL (74-106); POTASSIUM 3.3 mmol/L (3.5-5.1); SODIUM SERUM 140 mmol/L (136-145); UREA NITROGEN, BLOOD 18 mg/dL (7-18)
[2020-12-23] MEDS ORDERED: PIPERACILLIN /TAZOBACTAM 2.25 G VIAL IV ONE (22:50)
[2020-12-23 22:58] LABS: ALANINE AMINOTRANSFERASE 89 U/L (12-78); ALBUMIN 1.6 g/dL (3.4-5.0); ALKALINE PHOSPHATASE 220 U/L (46-116); ASPARTATE AMINOTRANSFERASE 194 U/L (15-37); BILIRUBIN,DIRECT 14.6 mg/dL (0.0-0.2); BILIRUBIN,TOTAL 17.7 mg/dL (0.2-1.0); TOTAL PROTEIN, SERUM 5.5 g/dL (6.4-8.2)
--- NOTE | 2020-12-23 23:03 | NUR ---
ZOSYN 2.25 TAKEN FROM ANOTHER UNIT. NOT AVAILABLE IN ER
--- NOTE | 2020-12-23 23:11 | NUR ---
per lab, lactic acid 8.3
[2020-12-23 23:22] LABS: BASOPHILS # (AUTO) 0.1 K/uL (0.0-0.2); EOSINOPHILS % (AUTO) 0.6 % (0.0-6.0); HEMATOCRIT 30 % (39-51); HEMOGLOBIN 9.8 g/dL (13.5-17.5); LYMPHOCYTES # (AUTO) 0.7 K/uL (0.8-4.8); MEAN CORPUSCULAR HGB CONC 33 g/dl (31.0-36.0); MEAN CORPUSCULAR VOLUME 99 fL (80-96); MONOCYTES # (AUTO) 0.4 K/uL (0.1-1.30); MONOCYTES % (AUTO) 11.5 % (2.0-12.0); NEUTROPHILS # (AUTO) 2.4 K/uL (1.8-8.9); NEUTROPHILS % (AUTO) 65.9 % (43.0-81.0); RED BLOOD CELL COUNT(AUTO) 3.02 MIL/uL (4.5-6.0); WHITE BLOOD COUNT (AUTO) 3.6 K/uL (4.3-11.0)
[2020-12-23 23:54] LABS: PLATELET COUNT (AUTO) 36 K/uL (150-450)
[2020-12-24] VITALS (8 sets, daily range): BP systolic 80–113; BP diastolic 42–65
--- NOTE | 2020-12-24 00:44 | NUR ---
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
[2020-12-24 00:56] LABS: EOSINOPHILS % (MANUAL) 2 % (0-4); LYMPHOCYTES % (MANUAL) 11 % (16-48); MONOCYTES % (MANUAL) 13 % (0-11.0); NEUTROPHILS % (MANUAL) 74 (42-76)
[2020-12-24] MEDS ORDERED: DEXTROSE 50%-WATER 50 ML DISP.SYRIN ONE (02:57)
--- NOTE | 2020-12-24 03:00 | NUR ---
verbal order D50mg iv. BS 47
[2020-12-24] MEDS ORDERED: NOREPINEPHRINE 4 MG/4 ML AMPUL IV ONE (03:08)
[2020-12-24] MEDS ORDERED: DEXTROSE 50%-WATER 50 ML DISP.SYRIN IVP ONE (03:30)
[2020-12-24] MEDS ORDERED: NOREPINEPHRINE 8 MG in IV NS 0.9% 250 ML IV ONE (03:30)
--- NOTE | 2020-12-24 03:30 | NUR ---
bs recheck 130
[2020-12-24] MEDS ORDERED: MAGNESIUM HYDROXIDE 30 ML UDC PO PRN (05:00)
[2020-12-24] MEDS ORDERED: ONDANSETRON HCL/PF 4 MG/2 ML VIAL IVP PRN (05:00)
[2020-12-24] MEDS ORDERED: Z GUARD REMEDY 2 OZ OINT TP PRN (05:00)
[2020-12-24] MEDS ORDERED: MAG HYDROX/AL HYDROX/SIMETH 30 ML UDC PO PRN (05:00)
[2020-12-24] MEDS ORDERED: ZOLPIDEM TARTRATE 5 MG TABLET PO PRN (05:00)
[2020-12-24] MEDS ORDERED: ACETAMINOPHEN 325 MG TABLET PO PRN (05:00)
[2020-12-24] MEDS ORDERED: CEFEPIME 2 GM in IV D5W 100 ML IV SCH (05:00)
[2020-12-24] MEDS ORDERED: POLYETHYLENE GLYCOL 3350 17 GM POWD.PACK PO PRN (05:30)
[2020-12-24] MEDS: IV NS 0.9% 1,000 ML IV SCH ×2 (05:30→10:22)
[2020-12-24] MEDS ORDERED: hydrOXYzine PAMOATE 25 MG CAPSULE PO PRN (05:30)
[2020-12-24] MEDS ORDERED: TEMAZEPAM 15 MG CAPSULE PO PRN (05:30)
[2020-12-24] MEDS ORDERED: BISACODYL (5 MG) 5 MG TABLET.DR PO PRN (05:30)
[2020-12-24] MEDS ORDERED: Medication Not On Formulary EA (Ipratropium/Albuterol Sulfate (Duoneb 2.5-0.5 Mg/3 Ml So IH PRN (05:30)
[2020-12-24] MEDS ORDERED: diphenhydrAMINE HCL 25 MG CAPSULE PO PRN (05:30)
[2020-12-24] MEDS ORDERED: LORAZEPAM 1 MG TABLET PO PRN (05:30)
[2020-12-24 05:48] LABS: CALCIUM, SERUM 8.3 mg/dL (8.5-10.1); MAGNESIUM 2.1 mg/dL (1.8-2.4); PHOSPHORUS 3.6 mg/dL (2.5-4.9); POTASSIUM 3.1 mmol/L (3.5-5.1)
[2020-12-24] MEDS ORDERED: Medication Not On Formulary EA (Ipratropium/Albuterol Sulfate (Duoneb 2.5-0.5 Mg/3 Ml So IH SCH (06:00)
[2020-12-24] MEDS ORDERED: ALBUTEROL FS 2.5 MG/0.5 ML VIAL.NEB NEB PRN (06:30)
[2020-12-24] MEDS ORDERED: IPRATROPIUM NEB FS 0.5 MG/2.5 ML AMPUL.NEB IH PRN (06:30)
--- NOTE | 2020-12-24 07:05 | NUR ---
gave report to huseyin lane for alisha
--- NOTE | 2020-12-24 07:40 | NUR ---
THE PATIENT SLEEPING IN ER BED #6. THE PATIENT IS RESPONSIVE TO VERBAL STIMULI BY OPENING EYES. RESPIRATION REGULAR AND UNLABORED. IN NO APPARENT DISTRESS. WILL CONTINUE TO MONITOR THE PATIENT.
[2020-12-24 07:59] LABS: BASOPHILS % (AUTO) 0.5 % (0.0-2.0); EOSINOPHILS % (AUTO) 0.5 % (0.0-6.0); HEMATOCRIT 29 % (39-51); HEMOGLOBIN 9.5 g/dL (13.5-17.5); LYMPHOCYTES # (AUTO) 1.4 K/uL (0.8-4.8); LYMPHOCYTES % (AUTO) 26.8 % (20.0-44.0); MEAN CORPUSCULAR HGB CONC 33 g/dl (31.0-36.0); MEAN CORPUSCULAR VOLUME 99 fL (80-96); MONOCYTES # (AUTO) 0.5 K/uL (0.1-1.30); MONOCYTES % (AUTO) 9.6 % (2.0-12.0); NEUTROPHILS # (AUTO) 3.2 K/uL (1.8-8.9); NEUTROPHILS % (AUTO) 62.6 % (43.0-81.0); RED BLOOD CELL COUNT(AUTO) 2.96 MIL/uL (4.5-6.0); WHITE BLOOD COUNT (AUTO) 5.1 K/uL (4.3-11.0)
[2020-12-24 08:02] LABS: PLATELET COUNT (AUTO) 47 K/uL (150-450)
[2020-12-24] MEDS ORDERED: ALBUTEROL FS 2.5 MG/3 ML VIAL.NEB ONE (08:13)
[2020-12-24] MEDS ORDERED: IPRATROPIUM NEB FS 0.5 MG/2.5 ML AMPUL.NEB ONE ×2 (08:13→13:53)
[2020-12-24] MEDS ORDERED: ALBUTEROL FS 2.5 MG/0.5 ML VIAL.NEB ONE ×2 (08:15→13:53)
[2020-12-24] MEDS: IPRATROPIUM NEB FS 0.5 MG/2.5 ML AMPUL.NEB IH SCH ×4 (08:18→19:50)
[2020-12-24] MEDS: ALBUTEROL FS 2.5 MG/0.5 ML VIAL.NEB NEB SCH ×4 (08:18→19:50)
[2020-12-24 08:29] LABS: EOSINOPHILS % (MANUAL) 2 % (0-4); LYMPHOCYTES % (MANUAL) 9 % (16-48); MONOCYTES % (MANUAL) 8 % (0-11.0); NEUTROPHILS % (MANUAL) 81 (42-76)
--- NOTE | 2020-12-24 09:07 | NUR ---
PER NURSE REESE FROM [facility] THE PATIENT IS ON RENAL DIET.
[2020-12-24] MEDS ORDERED: LACTULOSE 10 G/15 ML UDC (PYXIS) ONE (09:11)
[2020-12-24] MEDS ORDERED: PANTOPRAZOLE 40 MG TABLET.DR PO ONE (09:12)
[2020-12-24] MEDS ORDERED: OXYBUTYNIN CHLORIDE 5 MG TABLET ONE (09:12)
[2020-12-24] MEDS ORDERED: FOLIC ACID 1 MG TABLET ONE (09:13)
[2020-12-24] MEDS ORDERED: LEVETIRACETAM (250 MG) 250 MG TABLET PO ONE (09:13)
[2020-12-24] MEDS ORDERED: GABAPENTIN 300 MG CAPSULE ONE (09:14)
[2020-12-24] MEDS: CEFEPIME 2 GM in IV D5W 100 ML IV SCH (09:31)
--- NOTE | 2020-12-24 10:05 | NUR ---
Renal standard diet per Dr Angel Angulo. The order is read back, verified. Noted and carried out.
[2020-12-24] MEDS: LEVETIRACETAM (250 MG) 250 MG TABLET PO SCH ×3 (10:06→21:19)
[2020-12-24] MEDS: OXYBUTYNIN CHLORIDE 5 MG TABLET PO SCH ×4 (10:06→16:14)
[2020-12-24] MEDS: GABAPENTIN 300 MG CAPSULE PO SCH ×4 (10:06→16:14)
[2020-12-24] MEDS: LACTULOSE 10 G/15 ML UDC (PYXIS) PO SCH ×5 (10:06→21:20)
[2020-12-24] MEDS: FOLIC ACID 1 MG TABLET PO SCH ×2 (10:06→11:03)
[2020-12-24] MEDS: PANTOPRAZOLE 40 MG TABLET.DR PO SCH ×2 (10:06→11:02)
[2020-12-24] MEDS: PROSOURCE / PROSTAT (PYXIS) 30 ML UDC PO SCH ×2 (10:08→21:22)
[2020-12-24] MEDS: NEPRO VAN 237 ML CAN PO SCH (10:08)
--- NOTE | 2020-12-24 10:34 | NUR ---
Made Dr Angulo aware of BP 89/40 and HR 67. Waiting for orders. The patient is alert, no change in LOC noted. at the bedside.
[2020-12-24] MEDS ORDERED: IV NS 0.9% 500 ML IV ONE (11:00)
[2020-12-24] MEDS: FERROUS SULFATE (325 MG) 325 MG/TAB TABLET PO SCH (11:02)
[2020-12-24] MEDS: VITAMIN B COMP W-C 1 TAB TABLET PO SCH (11:03)
[2020-12-24] MEDS: MIDODRINE HCL (5MG) 5 MG TABLET PO SCH ×3 (11:03→16:15)
[2020-12-24] MEDS: CALCIUM ACETATE 667 MG TABLET PO SCH ×2 (11:03→16:15)
--- NOTE | 2020-12-24 11:26 | NUR ---
The patient`s Bernie refused for the patient to get any of morning medications despite explaining risks and benefits. The patient agreed with the `s decision. Dr Angel Angulo made aware. Will continue to monitor the patient
--- NOTE | 2020-12-24 11:53 | NUR ---
No new orders from Dr Angel Angulo for lactic acid of 8.8 and blood pressure of 92/53
--- NOTE | 2020-12-24 14:00 | NUR ---
ICU 264 GIVEN.
--- NOTE | 2020-12-24 15:37 | NUR ---
REPORT GIVEN TO NURSE PRAKASH.
--- NOTE | 2020-12-24 16:02 | NUR ---
The patient is transfered to assigned room per [facility] policy
--- NOTE | 2020-12-24 16:09 | NUR ---
RN NOTE RECEIVED PATIENT/REPORT FROM VALORIE GALVIN FOR ERICA.
[2020-12-24 17:47] LABS: ABG BASE EXCESS -8.7 mmol/L; ABG OXYGEN SATURATION 96.8 % (92.0-98.5); ABG PCO2 27.4 mmHg (35.0-45.0); ABG PH 7.369 (7.350-7.450); ABG PO2 94.7 mmHg (75.0-100.0); AaDO2 101.4 mmHg; COHb 0.5 % (0.5-1.5); MetHb 0.1 % (0.0-1.5); O2Hb 96.2 % (94.0-97.0); SITE, ABG Right Radial
[2020-12-24] MEDS ORDERED: NOREPINEPHRINE 8 MG in IV NS 0.9% 242 ML IV PRN ×2 (18:00)
[2020-12-24] MEDS: IV NS 0.9% 1,000 ML IV PRN (18:08)
--- NOTE | 2020-12-24 18:21 | NUR ---
RN NOTE TATIANA GUTIERREZ, REQUESTED PATIENT BE TAKEN TO DIFFERENT FACILITY FOR DISCHARGE. NOTIFIED CASE MANAGEMENT.
--- NOTE | 2020-12-24 18:47 | NUR ---
RN NOTE PATIENT IS CURRENTLY IN BED WITH HOB AT SEMI ESCAMILLA'S POSITION. PATIENT IS AOX2. PATIENT IS RECEIVING 3L WITH NO SIGNS OF RESPIRATORY DISTRESS. DIVINE PICC AND RHAND #24 ARE PATENT AND INTACT. BED IS LOCKED IN THE LOWEST POSITION,3 GUARD RAILS RAISED, CALL CARTER WITHIN REACH, AND ALL HOSPITAL SAFETY PRECAUTIONS ARE BEING FOLLOWED. ALL DUE MEDS GIVEN. WILL ENDORSE TO TOPOGRAPHIC COMPUTATOR RN.
--- NOTE | 2020-12-24 19:40 | NUR ---
RN NOTES RECEIVED PATIENT ASLEEP ON BED, STRICTLY ON DROPLET ISOLATION R/O COVID DUE TO PENDING PCR RESULT. NEGATIVE FOR RAPID RESULT. BREATHING EVEN AND UNLABORED WITH TRACH TO COOL AEROSOL ON O2 3LPM VIA TRACH MASK. AOX 2 ABLE TO VERBALIZED NEEDS. DENIES PAIN. SR ON MONITOR. WITH IV SITE ON DIVINE PICC LINE AND RIGHT HAND WITH IVF NS @ 100 ML/HR INTACT AND PATENT. RUC HD CATH WITH CLEAN DRESSING. KEPT PT COMFORTABLE IN BED. WILL CONTINUE TO MONITOR.
--- NOTE | 2020-12-24 19:56 | NUR ---
1929 breathing tx not administered to pt due to pending covid19 test. rn notified
[2020-12-24] MEDS ORDERED: TAMSULOSIN 0.4 MG CAP.SR.24H PO SCH (22:00)
[2020-12-25] VITALS (12 sets, daily range): BP systolic 93–117; BP diastolic 41–72
[2020-12-25] MEDS: ALBUTEROL FS 2.5 MG/0.5 ML VIAL.NEB NEB SCH ×2 (01:30→07:35)
[2020-12-25] MEDS: IPRATROPIUM NEB FS 0.5 MG/2.5 ML AMPUL.NEB IH SCH ×2 (01:30→07:35)
--- NOTE | 2020-12-25 01:30 | NUR ---
0130 breathing tx not administered to pt due to pending covid19 test. rn notified
[2020-12-25] MEDS: IV NS 0.9% 1,000 ML IV PRN (03:04)
--- NOTE | 2020-12-25 06:30 | NUR ---
RN NOTE CALLED AND SPOKE TO SUBSTITUTE BUS DRIVER ARLETH APPLICATION SYSTEMS ENGINEER, REGARDING PATIENT BLOOD CULTURE RESULT IS GM + COCCI IN CLUSTER AND LACTIC ACID 8.5. NNO AT THIS TIME PATIENT IS ON VANCOMYCIN AND MAXIPIME ALREADY. PATIENT IS AFEBRILE. VSS WITHOUT PRESSORS. STRICTLY ON ISOLATION PRECAUTION R/O COVID DUE TO PCR PENDING. IVF ns @ 100 ML/HR ONGOING. KEPT PT CLEAN AND COMFORTABLE IN BED. CONTINUE ON O2 VIA TRACH TO COOL AEROSOL @ 3LPM TOLERATED WELL. NSR ON MONITOR. PATIENT IS CLEAN AND DRY. DUE MEDS TOLERATED WELL. WILL ENDORED CONTINUITY OF CARE.
[2020-12-25] MEDS: PANTOPRAZOLE 40 MG TABLET.DR PO SCH (07:30)
--- NOTE | 2020-12-25 07:30 | NUR ---
RN OPENING NOTES Patient received in bed in stable condition. On trach ( cool aerosol 3L). Alert and oriented x 2/3. HOB kept elevated. Right upper arm picc line running fluids at 100 cc/hour. Right hand peripheral line 24 gauze saline lock. Will continue to monitor. Call light with in reach.
--- NOTE | 2020-12-25 07:54 | NUR ---
WOUND CARE CONSULT: PT PRESENTS WITH SACRAL DEEP TISSUE INJURY IN EVOLUTION WELL 4+ PITTING EDEMA TO RT LOWER LEG, PRESENT ON ADMISSION. RECOMMENDATIONS MADE FOR SKIN PROTECTION AND WOUND CARE. DISCUSSED WITH NURSING STAFF. DR KIMBLE CONSULTED FOR SURGICAL CONSULT OF SACRAL WOUND. PT IS ON ORLY ISOFLEX LOW AIRLOSS BED. IN AGREEMENT WITH PLAN OF CARE. Addendum: 12/25/20 at 0758 by JUVENCIO SAM WNDNU Amended: Links added.
[2020-12-25] MEDS: PROSOURCE / PROSTAT (PYXIS) 30 ML UDC PO SCH (09:00)
[2020-12-25] MEDS: GABAPENTIN 300 MG CAPSULE PO SCH (09:00)
[2020-12-25] MEDS: NEPRO VAN 237 ML CAN PO SCH (09:00)
[2020-12-25] MEDS: CEFEPIME 2 GM in IV D5W 100 ML IV SCH (10:01)
[2020-12-25] MEDS: MIDODRINE HCL (5MG) 5 MG TABLET PO SCH (10:02)
[2020-12-25] MEDS: CALCIUM ACETATE 667 MG TABLET PO SCH (10:02)
[2020-12-25] MEDS: OXYBUTYNIN CHLORIDE 5 MG TABLET PO SCH (10:02)
[2020-12-25] MEDS: FOLIC ACID 1 MG TABLET PO SCH (10:02)
[2020-12-25] MEDS: FERROUS SULFATE (325 MG) 325 MG/TAB TABLET PO SCH (10:02)
[2020-12-25] MEDS: VITAMIN B COMP W-C 1 TAB TABLET PO SCH (10:02)
[2020-12-25] MEDS: LEVETIRACETAM (250 MG) 250 MG TABLET PO SCH (10:02)
[2020-12-25] MEDS: LACTULOSE 10 G/15 ML UDC (PYXIS) PO SCH (10:03)
[2020-12-25] MEDS ORDERED: VANCOMYCIN 1 GM in IV D5W 250 ML IV SCH (12:00)
--- NOTE | 2020-12-25 12:30 | NUR ---
Patient was discharged at apprx 12 15 pm. Patient's glassine machine tender Bernie requested for patient to be discharged early due to an appointment. All teaching material provided. Patient left the facility in a stable condition. No c/o sob, No c/o dizziness. Picc line left in place due to spouse's request. Patient's peripheral line removed to right hand.
--- NOTE | 2020-12-25 12:35 | NUR ---
UNABLE TO TAKE A PICTURE OF PATIENT'S SKIN DUE TO SPOUSE REFUSING BECAUSE OF NEEDING TO LEAVE FOR AN APPOINTMENT.
== END 2020-12-25 12:44 | DRG 279 ==
LOC: ER 21:06 → TRANSITION 12-24 03:33 → ICU 12-24 14:50
PROVIDERS: ADMIT Nurse Practitioner Acute Care; ATTEND Nurse Practitioner Acute Care
DX: K72.00 Acute and subacute hepatic failure without coma (principal); G93.41 Metabolic encephalopathy; I81 Portal vein thrombosis; D61.818 Other pancytopenia; J96.10 Chronic respiratory failure, unspecified whether with hypoxia or hypercapnia; C22.0 Liver cell carcinoma; I95.9 Hypotension, unspecified; I12.0 Hypertensive chronic kidney disease with stage 5 chronic kidney disease or end stage renal disease; D68.4 Acquired coagulation factor deficiency; R18.8 Other ascites; E87.8 Other disorders of electrolyte and fluid balance, not elsewhere classified; J90 Pleural effusion, not elsewhere classified; N18.6 End stage renal disease; D63.8 Anemia in other chronic diseases classified elsewhere; E88.09 Other disorders of plasma-protein metabolism, not elsewhere classified; K74.60 Unspecified cirrhosis of liver; Z93.0 Tracheostomy status; Z86.73 Personal history of transient ischemic attack (TIA), and cerebral infarction without residual deficits; Z99.2 Dependence on renal dialysis; Z87.891 Personal history of nicotine dependence; E87.6 Hypokalemia; F41.9 Anxiety disorder, unspecified; G40.909 Epilepsy, unspecified, not intractable, without status epilepticus; K80.20 Calculus of gallbladder without cholecystitis without obstruction; E16.2 Hypoglycemia, unspecified; Z87.01 Personal history of pneumonia (recurrent); Z20.822 Contact with and (suspected) exposure to COVID-19
CPT/HCPCS: 31720; 36415; 36600; 71045-TC; 80048-TC; 80061-TC; 80076-TC; 82140-TC; 82803-TC; 83605-TC; 83735-TC; 84100-TC; 84484-TC; 85025-TC; 85730-TC; 87040-TC; 94640-TC; 94799-TC; A4623; C9803; G0378; J0692; J0696; J2405; J2543; J3370; J7030; J7040; J7050; J7060; Q0163; Q0177; U0003